=== PATIENT | male | born 1970 | race Caucasian/White ===

== ENCOUNTER 2022-11-12 01:12 | Emergency (ER) | payer OTHER, SELFPAY ==
[2022-11-12 01:16] VITALS: BP 152/98; PULSE 82; RESP 18; TEMP 36.6; O2SAT 99; BMI 34.4
[2022-11-12] MEDS: LIDOCAINE 2% JELLY 10 ML UR (01:50)
--- NOTE | 2022-11-12 01:52 | ED_ITS ---
HPI - Male Genitourinary General Chief complaint: Urogenital-Male Stated complaint: URINARY RETENTION Time Seen by Provider: 11/12/22 01:26 Source: patient Mode of arrival: walk-in Limitations: no limitations History of Present Illness HPI Narrative: This 52-year-old male who is a patient of Dr. Haley, urology, presents for evaluation of urinary retention. The patient states he was at work this morning and use the bathroom earlier without any difficulty. He then went to use the bathroom and urinated loc blood. After urinating loc blood he has not been able to pass any urine. He states that Dr. Haley is monitoring him for a spot on his prostate. It is believed to be cancer but it was so small that they are monitoring. He does not have any abdominal pain besides fullness in his bladder. He has not experiencing any flank pain. He has no generalized back pain, hip pain or other skeletal pain. He denies any recent rough sex or injury to his penis or scrotum. He did play golf earlier in the day but is not experiencing any urinary symptoms, pain or injury. He denies any nausea or vomiting. He has never had a Dior catheter. Related Data Home Medications Medication Instructions Recorded Confirmed tamsulosin 0.4 mg capsule mg PO 11/12/22 Allergies Allergy/AdvReac Type Severity Reaction Status Date / Time No Known Drug Allergies Allergy Verified 11/12/22 01:20 Review of Systems ROS Status of ROS 10 or more systems reviewed and unremarkable except as noted in history and below PFSH PFS Social History Smoking status: Never smoker Exam Narrative Exam Narrative: Nurses note and vital signs reviewed and patient is not hypoxic. Blood pressure was noted to be elevated at 152/98 General: The patient appears well and in no apparent distress. Patient is resting comfortably on cart. Skin: Warm, dry, no pallor noted. There is no rash noted. Head: Normocephalic, atraumatic Eye: Normal conjunctiva, no drainage, EOMI. PERRL Ears, Nose, Mouth, and Throat: oral mucosa is moist. Cardiovascular: Regular Rate and Rhythm Respiratory: Patient is in no distress, no accessory muscle use, lungs are clear to auscultation, no wheezing, rales or rhonchi Back: non-tender, no CVA tenderness bilaterally to percussion. GI: Normal bowel sounds, no tenderness to palpation, no masses appreciated. Fullness over urinary bladder, Bladder scan showed 570cc of retained urine in the bladder Musculoskeletal: The patient has no evidence of calf tenderness, no pitting edema, symmetrical pulses noted bilaterally Neurological: A&O x4, normal speech Psychiatric: Cooperative Constitutional Vital Signs, click to edit/add: Last Vital Signs Temp 97.8 F 11/12/22 01:16 Pulse 82 11/12/22 01:16 Resp 18 11/12/22 01:16 BP 152/98 H 11/12/22 01:16 Pulse Ox 99 11/12/22 01:16 O2 Del Method Room Air 11/12/22 01:16 Course Vital Signs Vital signs: Vital Signs Temperature 97.8 F 11/12/22 01:16 Pulse Rate 82 11/12/22 01:16 Respiratory Rate 18 11/12/22 01:16 Blood Pressure 152/98 H 11/12/22 01:16 Pulse Oximetry 99 11/12/22 01:16 Oxygen Delivery Method Room Air 11/12/22 01:16 Temperature 97.8 F 11/12/22 01:16 Pulse Rate 82 11/12/22 01:16 Respiratory Rate 18 11/12/22 01:16 Blood Pressure 152/98 H 11/12/22 01:16 Pulse Oximetry 99 11/12/22 01:16 Oxygen Delivery Method Room Air 11/12/22 01:16 MDM - Male Genitourinary MDM Narrative Medical decision making narrative: this 52-year-old male presents for evaluation of urinary retention. He last urinated loc blood and then was unable to pass any urine. Bladder scan shows garcía a 500 mL in his bladder. A Dior catheter was placed and loc bloody urine was removed from the bladder. He was given 3 L of be until his urine became clear. Routine labs are reviewed and are normal with the exception of urine that is positive for nitrites, blood and white blood cells. He was given 1 g of Rocephin. He will be discharged home with prescription for Keflex and recommendation for close follow-up with Dr. Haley, his urologist. He has been diagnosed in the past with prostate cancer that is being watched at this time. I encouraged him to return to emergency department if her and she stopped flowing through his catheter, if he has a fever, severe abdominal pain back pain or any concerns. Lab Data Labs: Lab Results 11/12/22 11/12/22 Range/Units 01:55 02:00 WBC 5.0 (4.0-11.0) 10^3/uL RBC 4.75 (4.70-6.10) 10^6/uL Hgb 14.7 (14.0-18.0) g/dL Hct 42.2 (42.0-54.0) % MCV 88.8 (80.0-94.0) fL MCH 30.9 (25.9-34.0) pg MCHC 34.8 (29.9-35.2) g/dL RDW 11.8 (11.0-15.0) % Plt Count 294 (150-450) 10^3/uL MPV 9.4 L (9.5-13.5) fL Neut % (Auto) 61.1 (43.0-75.0) % Lymph % (Auto) 30.9 (20.5-60.0) % [place] % (Auto) 6.8 (1.7-12.0) % Eos % (Auto) 0.8 L (0.9-7.0) % Baso % (Auto) 0.2 (0.2-2.0) % Neut # (Auto) 3.1 (1.4-6.5) 10^3/uL Lymph # (Auto) 1.5 (1.2-3.8) 10^3/uL [place] # (Auto) 0.3 (0.3-0.8) 10^3/uL Eos # (Auto) 0.0 (0.0-0.7) 10^3/uL Baso # (Auto) 0.0 (0.0-0.1) 10^3/uL Abs Immat Gran (auto) 0.01 (0.00-0.03) 10^3/uL Imm/Tot Granulo (auto) 0.2 (0.0-0.5) % Sodium 140 (136-145) mmol/L Potassium 3.7 (3.5-5.1) mmol/L Chloride 105 (98-107) mmol/L Carbon Dioxide 27.1 (21.0-32.0) mmol/L Anion Gap 11.6 BUN 15.0 (7.0-18.0) mg/dL Creatinine 1.10 (0.70-1.30) mg/dL Est GFR ( Amer) >60 (>=60) Est GFR (Non-Af Amer) >60 (>=60) BUN/Creatinine Ratio 13.6 Glucose 98 (74-106) mg/dL Calcium 8.8 (8.5-10.1) mg/dL Total Bilirubin 0.6 (0.2-1.0) mg/dL AST 18 (15-37) U/L ALT 24 (16-63) U/L Alkaline Phosphatase 56 (46-116) U/L Total Protein 7.5 (6.4-8.2) g/dL Albumin 4.1 (3.4-5.0) g/dL Globulin 3.4 g/dL Albumin/Globulin Ratio 1.2 Urine Color Dk. orange (YELLOW) Urine Clarity Sl cloudy (CLEAR) Urine pH 7.0 (5.0-9.0) Ur Specific [place] 1.015 (1.005-1.025) Urine Protein >=300 A (NEG/TRACE) mg/dL Urine Glucose (UA) 100 A (NEGATIVE) mg/dL Urine Ketones 15 A (NEGATIVE) mg/dL Urine Occult Blood Large A (NEGATIVE) Urine Nitrite Positive A (NEGATIVE) Urine Bilirubin Moderate A (NEGATIVE) Urine Urobilinogen 4.0 A (0.2-1.0) EU/dL Ur Leukocyte Esterase Moderate A (NEGATIVE) Urine RBC >100 A (0-2) #/HPF Urine WBC 20-50 A (NONE SEEN) #/HPF Ur Squamous Epith Cells Few A (NONE/RARE) #/LPF Urine Crystals None seen (None Seen) #/HPF Urine Bacteria Small A (NONE SEEN) #/HPF Urine Casts None seen (NONE SEEN) #/LPF Urine Mucus None seen (NONE SEEN) Ur Culture Indicated? Yes Discharge Plan Discharge Chief Complaint: Urogenital-Male Clinical Impression: Urinary tract infection, Gross hematuria, Acute urinary retention Patient Disposition: Home, Self-Care Time of Disposition Decision: 02:46 Condition: Good Prescriptions / Home Meds: No Action tamsulosin 0.4 mg capsule PO Stand Alone Forms: Portal Instructions Referrals: Catarino French DO [Primary Care Provider] - 1 week
[2022-11-12 02:09] LABS: Bilirubin Urine MODERATE (NEGATIVE); Blood Urine LARGE (NEGATIVE); Clarity Urine SL CLOUDY (CLEAR); Color Urine DK. ORANGE (YELLOW); Glucose Urine UA 100 mg/dL (NEGATIVE); Ketones Urine 15 mg/dL (NEGATIVE); Leukocyte Esterase Urine MODERATE (NEGATIVE); Nitrite Urine POSITIVE (NEGATIVE); Protein Urine >=300 mg/dL (NEG/TRACE); Specific Gravity Urine 1.015 (1.005-1.025)
[2022-11-12] MEDS: SODIUM CHLORIDE IRRIG SOLUTION 3,000 ML 3000 ML IRR (02:11)
[2022-11-12 02:16] LABS: Bacteria Urine SMALL #/HPF (NONE SEEN); Mucus Urine NONE SEEN (NONE SEEN); RBC Urine >100 #/HPF (0-2); Squamous Epithelial Cell Urine FEW #/LPF (NONE/RARE); WBC Urine 20-50 #/HPF (NONE SEEN)
[2022-11-12 02:17] LABS: Cast Seen? NONE SEEN #/LPF (NONE SEEN); Crystals Seen? None Seen #/HPF (None Seen); Urine Culture Indicated YES
[2022-11-12 02:20] LABS: Basophils Percent Auto 0.2 % (0.2-2.0); Eosinophils Percent Auto 0.8 % (0.9-7.0); Hematocrit 42.2 % (42.0-54.0); Hemoglobin 14.7 g/dL (14.0-18.0); Immature Granulocytes Abs Auto 0.01 10^3/uL (0.00-0.03); Immature Granulocytes Pct Auto 0.2 % (0.0-0.5); Lymphocytes Absolute Auto 1.5 10^3/uL (1.2-3.8); Lymphocytes Percent Auto 30.9 % (20.5-60.0); Mean Corpuscular HGB Conc 34.8 g/dL (29.9-35.2); Mean Corpuscular Hemoglobin 30.9 pg (25.9-34.0); Mean Corpuscular Volume 88.8 fL (80.0-94.0); Mean Platelet Volume 9.4 fL (9.5-13.5); Monocytes Absolute Auto 0.3 10^3/uL (0.3-0.8); Monocytes Percent Auto 6.8 % (1.7-12.0); Neutrophils Absolute Auto 3.1 10^3/uL (1.4-6.5); Neutrophils Percent Auto 61.1 % (43.0-75.0); Platelet Count 294 10^3/uL (150-450); Red Blood Count 4.75 10^6/uL (4.70-6.10); Red Cell Distribution Width 11.8 % (11.0-15.0)
[2022-11-12 02:22] LABS: Alanine Aminotransferase 24 U/L (16-63); Albumin Globulin Ratio 1.2; Albumin Level 4.1 g/dL (3.4-5.0); Alkaline Phosphatase 56 U/L (46-116); Anion Gap 11.6; Aspartate Amino Transferase 18 U/L (15-37); BUN Creatinine Ratio 13.6; Bilirubin Total 0.6 mg/dL (0.2-1.0); Calcium 8.8 mg/dL (8.5-10.1); Carbon Dioxide 27.1 mmol/L (21.0-32.0); Chloride 105 mmol/L (98-107); Estimated GFR (African America >60 (>=60); Estimated GFR (Non-African Ame >60 (>=60); Globulin 3.4 g/dL; Glucose 98 mg/dL (74-106); Potassium 3.7 mmol/L (3.5-5.1); Sodium 140 mmol/L (136-145); Total Protein 7.5 g/dL (6.4-8.2)
--- NOTE | 2022-11-12 06:54 | ED_ITS ---
HPI - Male Genitourinary General Chief complaint: Urogenital-Male Stated complaint: URINARY RETENTION Time Seen by Provider: 11/12/22 01:26 Source: patient Mode of arrival: walk-in Limitations: no limitations History of Present Illness HPI Narrative: This is an addendum to the addendum. This 52-year-old male was receiving CBI after presenting for urinary retention and gross hematuria. The CBI had been clearing up and the plan was for discharge home with digital hand and oral antibiotics when he had bladder spasm and started bleeding around the Dior catheter. The Dior catheter was removed and replaced and the patient had gross hematuria again in the Dior catheter. He received 3 more liters of CBI. The urine became clear again and then started becoming bloody again. The case was discussed with Dr. Jovan Can, urology with the urology group that the patient is currently with. He suggested the patient be transferred to [facility] for aggressive clot removal. The patient was informed of this and was made nothing by mouth. The patient's feels comfortable taking him to [facility] once a bed is available. Related Data Home Medications Medication Instructions Recorded Confirmed tamsulosin 0.4 mg capsule mg PO 11/12/22 Allergies Allergy/AdvReac Type Severity Reaction Status Date / Time No Known Drug Allergies Allergy Verified 11/12/22 01:20 [facility] Social History Smoking status: Never smoker Exam Constitutional Vital Signs, click to edit/add: Last Vital Signs Temp 97.8 F 11/12/22 01:16 Pulse 82 11/12/22 01:16 Resp 18 11/12/22 01:16 BP 152/98 H 11/12/22 01:16 Pulse Ox 99 11/12/22 01:16 O2 Del Method Room Air 11/12/22 01:16 Course Vital Signs Vital signs: Vital Signs Temperature 97.8 F 11/12/22 01:16 Pulse Rate 82 11/12/22 01:16 Respiratory Rate 18 11/12/22 01:16 Blood Pressure 152/98 H 11/12/22 01:16 Pulse Oximetry 99 11/12/22 01:16 Oxygen Delivery Method Room Air 11/12/22 01:16 Temperature 97.8 F 11/12/22 01:16 Pulse Rate 82 11/12/22 01:16 Respiratory Rate 18 11/12/22 01:16 Blood Pressure 152/98 H 11/12/22 01:16 Pulse Oximetry 99 11/12/22 01:16 Oxygen Delivery Method Room Air 11/12/22 01:16 MDM - Male Genitourinary Lab Data Labs: Lab Results 11/12/22 11/12/22 Range/Units 01:55 02:00 WBC 5.0 (4.0-11.0) 10^3/uL RBC 4.75 (4.70-6.10) 10^6/uL Hgb 14.7 (14.0-18.0) g/dL Hct 42.2 (42.0-54.0) % MCV 88.8 (80.0-94.0) fL MCH 30.9 (25.9-34.0) pg MCHC 34.8 (29.9-35.2) g/dL RDW 11.8 (11.0-15.0) % Plt Count 294 (150-450) 10^3/uL MPV 9.4 L (9.5-13.5) fL Neut % (Auto) 61.1 (43.0-75.0) % Lymph % (Auto) 30.9 (20.5-60.0) % [place] % (Auto) 6.8 (1.7-12.0) % Eos % (Auto) 0.8 L (0.9-7.0) % Baso % (Auto) 0.2 (0.2-2.0) % Neut # (Auto) 3.1 (1.4-6.5) 10^3/uL Lymph # (Auto) 1.5 (1.2-3.8) 10^3/uL [place] # (Auto) 0.3 (0.3-0.8) 10^3/uL Eos # (Auto) 0.0 (0.0-0.7) 10^3/uL Baso # (Auto) 0.0 (0.0-0.1) 10^3/uL Abs Immat Gran (auto) 0.01 (0.00-0.03) 10^3/uL Imm/Tot Granulo (auto) 0.2 (0.0-0.5) % Sodium 140 (136-145) mmol/L Potassium 3.7 (3.5-5.1) mmol/L Chloride 105 (98-107) mmol/L Carbon Dioxide 27.1 (21.0-32.0) mmol/L Anion Gap 11.6 BUN 15.0 (7.0-18.0) mg/dL Creatinine 1.10 (0.70-1.30) mg/dL Est GFR ( Amer) >60 (>=60) Est GFR (Non-Af Amer) >60 (>=60) BUN/Creatinine Ratio 13.6 Glucose 98 (74-106) mg/dL Calcium 8.8 (8.5-10.1) mg/dL Total Bilirubin 0.6 (0.2-1.0) mg/dL AST 18 (15-37) U/L ALT 24 (16-63) U/L Alkaline Phosphatase 56 (46-116) U/L Total Protein 7.5 (6.4-8.2) g/dL Albumin 4.1 (3.4-5.0) g/dL Globulin 3.4 g/dL Albumin/Globulin Ratio 1.2 Urine Color Dk. orange (YELLOW) Urine Clarity Sl cloudy (CLEAR) Urine pH 7.0 (5.0-9.0) Ur Specific [place] 1.015 (1.005-1.025) Urine Protein >=300 A (NEG/TRACE) mg/dL Urine Glucose (UA) 100 A (NEGATIVE) mg/dL Urine Ketones 15 A (NEGATIVE) mg/dL Urine Occult Blood Large A (NEGATIVE) Urine Nitrite Positive A (NEGATIVE) Urine Bilirubin Moderate A (NEGATIVE) Urine Urobilinogen 4.0 A (0.2-1.0) EU/dL Ur Leukocyte Esterase Moderate A (NEGATIVE) Urine RBC >100 A (0-2) #/HPF Urine WBC 20-50 A (NONE SEEN) #/HPF Ur Squamous Epith Cells Few A (NONE/RARE) #/LPF Urine Crystals None seen (None Seen) #/HPF Urine Bacteria Small A (NONE SEEN) #/HPF Urine Casts None seen (NONE SEEN) #/LPF Urine Mucus None seen (NONE SEEN) Ur Culture Indicated? Yes Discharge Plan Discharge Chief Complaint: Urogenital-Male Clinical Impression: Urinary tract infection, Gross hematuria, Acute urinary retention Patient Disposition: Home, Self-Care Time of Disposition Decision: 02:46 Condition: Good Prescriptions / Home Meds: No Action tamsulosin 0.4 mg capsule PO Stand Alone Forms: Portal Instructions Referrals: Catarino French DO [Primary Care Provider] - 1 week
[2022-11-12 07:12] VITALS: BP 156/96; O2SAT 99
[2022-11-12 07:20] VITALS: O2SAT 98
[2022-11-12 07:30] VITALS: BP 157/84; O2SAT 95
[2022-11-12 07:40] VITALS: O2SAT 100
[2022-11-12 07:50] VITALS: O2SAT 96
[2022-11-12] MEDS: ACETAMINOPHEN 500 MG TABLET PO (07:56)
[2022-11-12] MEDS: DIAZEPAM 2 MG TABLET PO (07:56)
[2022-11-12] MEDS: IBUPROFEN 400 MG TABLET 800 MG PO (07:57)
== END 2022-11-12 08:21 | disposition short-term general hospital (02) ==
PROVIDERS: Emergency Provider Emergency Medicine; PCP Internal Medicine
DX: N39.0 Urinary tract infection, site not specified (principal); R33.9 Retention of urine, unspecified; R31.0 Gross hematuria; Z85.46 Personal history of malignant neoplasm of prostate
CPT/HCPCS: 36415; 51700; 80053; 81001; 85025; 87086; 99285

== ENCOUNTER 2023-01-04 09:41 | Outpatient (OUT) | payer OTHER, SELFPAY ==
--- NOTE | 2023-01-04 | XR_ITS ---
The [address] [address] Patient Name: KAMRON YANG MRN: [id number] date: 1970 Sex: M Assigned Patient Location: [facility] Current Patient Location: [facility] Accession/Order Number: [id number] Exam Date: 01/04/2023 09:38 Report Date: 01/04/2023 10:30 At the request of: BJ CORDERO Procedure: XR foot RT min 3V STUDY: XR foot RT min 3V, [id number] HISTORY: RIGHT FOOT PAIN COMPARISON: None FINDINGS: No acute fracture, dislocation, or suspicious osseous lesion. Small plantar calcaneal spur. Moderate Achilles insertional enthesopathy. Scattered vascular calcifications are present. An os peroneum is present. XR/XR foot RT min 3V IMPRESSION: No acute osseous abnormality. Electronically authenticated by: GLENN SANDERS Date: 01/04/2023 10:30
== END 2023-01-04 09:42 | disposition home or self-care (01) ==
LOC: RAD 01-05 09:41
PROVIDERS: PCP Internal Medicine; Visit Provider Physician Assistant
DX: S99.921A Unspecified injury of right foot, initial encounter (principal)
CPT/HCPCS: 73630

== ENCOUNTER 2023-01-06 14:49 | Outpatient (RCR) | payer OTHER, SELFPAY | END 2023-02-22 17:20 | disposition home or self-care (01) | LOC: PT 14:49 | PROVIDERS: PCP Internal Medicine; Visit Provider Physician Assistant | DX: S93.691D Other sprain of right foot, subsequent encounter (principal) | CPT/HCPCS: 97010; 97014; 97035; 97110; 97112; 97140; 97161 ==

== ENCOUNTER 2023-01-27 07:08 | Outpatient (OUT) | payer OTHER, SELFPAY ==
[2023-01-27 07:46] LABS: Basophils Percent Auto 0.5 % (0.2-2.0); Eosinophils Absolute Auto 0.1 10^3/uL (0.0-0.7); Eosinophils Percent Auto 2.2 % (0.9-7.0); Hematocrit 45.4 % (42.0-54.0); Hemoglobin 15.5 g/dL (14.0-18.0); Immature Granulocytes Abs Auto 0.01 10^3/uL (0.00-0.03); Immature Granulocytes Pct Auto 0.2 % (0.0-0.5); Lymphocytes Absolute Auto 2.7 10^3/uL (1.2-3.8); Mean Corpuscular HGB Conc 34.1 g/dL (29.9-35.2); Mean Corpuscular Volume 90.8 fL (80.0-94.0); Mean Platelet Volume 9.3 fL (9.5-13.5); Monocytes Absolute Auto 0.5 10^3/uL (0.3-0.8); Monocytes Percent Auto 7.9 % (1.7-12.0); Neutrophils Absolute Auto 3.1 10^3/uL (1.4-6.5); Neutrophils Percent Auto 48.2 % (43.0-75.0); Platelet Count 283 10^3/uL (150-450); Red Cell Distribution Width 11.5 % (11.0-15.0); White Blood Count 6.5 10^3/uL (4.0-11.0)
[2023-01-27 08:45] LABS: Alanine Aminotransferase 41 U/L (16-63); Albumin Globulin Ratio 1.1; Albumin Level 3.8 g/dL (3.4-5.0); Alkaline Phosphatase 66 U/L (46-116); Anion Gap 12.3; Aspartate Amino Transferase 19 U/L (15-37); BUN Creatinine Ratio 16.7; Calcium 8.6 mg/dL (8.5-10.1); Carbon Dioxide 27.8 mmol/L (21.0-32.0); Chloride 102 mmol/L (98-107); Chol HDL Ratio 4.7; Cholesterol 259 mg/dL (<=200); Estimated GFR (African America >60 (>=60); Estimated GFR (Non-African Ame >60 (>=60); Globulin 3.5 g/dL; Glucose 92 mg/dL (74-106); HDL Cholesterol 55 mg/dL (40-60); Potassium 4.1 mmol/L (3.5-5.1); Sodium 138 mmol/L (136-145); Total Protein 7.3 g/dL (6.4-8.2); Triglycerides 240 mg/dL (<=150)
== END 2023-01-27 07:09 | disposition home or self-care (01) ==
LOC: LAB 07:09
PROVIDERS: PCP Internal Medicine; Visit Provider Internal Medicine
DX: Z00.00 Encounter for general adult medical examination without abnormal findings (principal)
CPT/HCPCS: 36415; 80053; 80061; 85025

== ENCOUNTER 2023-10-12 13:52 | Outpatient (OUT) | payer OTHER, SELFPAY ==
--- OUTSIDE RECORDS SUMMARY | 2023-10-12 14:17 | XMS_ITS ---
Patient Summarization (C-CDA 2.1 CCD) Created on: October 12, 2023 THOMPSONKAMRON : 1970 Sex: Male Author Organization Sample organization Care Team Providers Care Customer Supply Coordinator Name Role Phone Unavailable Primary Care Provider Unavailabl e MISC, DOCTOR Admitting Unavailable ROSEANNA, DR SALINAS Primary Care Unavailable MISC, DR BARRAGAN Consulting Unavailable MISC, DR BARRAGAN Attending Unavailable ROSEANNA, DR SALINAS Consulting Unavailable ROSEANNA, DR SALINAS Attending Unavailable ROSEANNA, DR SALINAS Admitting Unavailable ROSEANNA, DR SALINAS Primary Care Unavailable Catarino Condon Unavailable Catarino Condon DO Primary Care Provider CATARINO CONDON Primary Care Unavailable CHASTITY NAIR Admitting Unavailable MUSTAPHA AUGUSTINE I Attending Unavailable MARKER, NIKI Referring Unavailable CATARINO CONDON Primary Care Unavailable TYSON CAMARENA Consulting Unavailable MUSTAPHA AUGUSTINE I Consulting Unavailable Gabe Haley Attending Unavailable Catarino Condon Primary Care Unavailable Gabe Haley Admitting Unavailable Gabe Haley Attending Unavailable Catarino Condon Primary Care Unavailable Gabe Haley Admitting Unavailable Allergies Allergy Classification Reported Allergen(s) Allergy Type Date of Onset Reaction(s) Facility (1 source) No Known Medication Allergies; Translations: [No Known Medication Allergies] Propensity to adverse reactions to drug (disorder) [facility] Repository Encounters Encounter Date Encounter Type Care Provider Facility Start: 05-20-2023 End: 05-20-2023 ambulatory Catarino Condon Other [employer] Other Start: 05-20-2023 Telephone encounter [facility] Start: 04-29-2023 End: 04-29-2023 ambulatory Catarino Roseanna Other [employer] Other Start: 04-29-2023 Telephone encounter Catarino Condon [facility] Start: 04-27-2023 End: 04-27-2023 ambulatory Catarino Roseanna Other [employer] Other Start: 04-27-2023 Office outpatient vi sit 15 minutes Catarino Condon [facility] Start: 02-22-2023 Telephone encounter Catarino Condon [facility] Start: 02-22-2023 End: 02-22-2023 ambulatory Gabe Haley [facility] [employer] Other Start: 01-26-2023 Encounter for genera l adult medical examination without abnormal findings Catarino Condon [facility] Start: 01-26-2023 Periodic preventive med est patient 40-64yrs Catarino Condon [facility] Start: 01-26-2023 End: 01-27-2023 ambulatory Gabe Haley [facility] [employer] Other Start: 11-12-2022 End: 11-12-2022 Evaluation and management of inpatient CHASTITY TAMAYOP [facility] Start: 11-12-2022 End: 11-12-2022 Emergency department patient visit CATARINO CONDON [facility] Start: 11-12-2022 End: 11-12-2022 Evaluation and management of inpatient Chastity Nair DO Work Phone: [facility] ED Comment on above: Urinary retention (P rimary Dx) Start: 10-05-2022 End: 10-05-2022 ambulatory Catarino Condon Other [employer] Other Start: 10-05-2022 Telephone encounter Catarino VALLADARES [facility] Start: 07-28-2022 End: 07-28-2022 ambulatory Catarino Condon Other [employer] Other Start: 07-28-2022 Office outpatient vi sit 15 minutes Catarino Condon [facility] Start: 06-17-2022 End: 06-18-[address] DOCTOR FRANCO Facility:[facility] Start: 02-03-2022 Encounter for genera l adult medical examination without abnormal findings DR CATARINO CONDON [facility] Start: 01-23-2022 End: 01-24-[address] CATARINO CONDON Facility:[facility] Start: 01-23-2022 End: 01-24-2022 Encounter for general adult medical examination without abnormal findings DR CATARINO CONDON Facility:[facility] Start: 04-07-2020 End: 04-07-2020 Patient encounter procedure External Provider [facility] Start: 04-07-2020 Results Only External Provider Exter nal-NonCCF Medications Current Medications Medication Drug Class(es) Dates Sig (Normalized) Sig (Original) 0.5 ML tirzepatide 20 MG/ML Auto-Injector [Mounjaro] (2 sources) Start: 07-28-2022 inject 10 mg by subcutaneous injection every week Mounjaro 10 MG/0.5ML 10 MG Subcutaneous weekly for 28 days Jul, Active inject 10 mg by subcutaneous inj ection every week Acetaminophen (1 source) Start: 11-12-2022 acetaminophen (TYLENOL) tablet 650 mg hyoscyamine sulfate 0.125 mg sublingual tablet (1 source) Start: 11-12-2022 End: 11-15-2022 Hyoscyamine Sulfate SL (LEVSIN/SL) 0.[address] 0.125 mg under the tongue every 6 hours as needed (bladder spasms) STOP TAKING DAY BEFORE CATHETER REMOVAL 12 each 0 11/12/2022 11/15/2022 Active mounjaro 2.5 mg/0.5ml solution pen-injector (3 sources) Start: 04-27-2023 inject 2.5 mg by subcutaneous injection every week Mounjaro 2.5 MG/0.5ML 2.5 MG Subcutaneous weekly for 28 days Apr, Active olmesartan medoxomil 5 mg oral tablet (5 sources) Angiotensin 2 Receptor Brock Start: 01-26-2023 Olmesartan Medoxomil 5 MG as directed Orally Once a day for 30 days Jan, Active ondansetron (ZOFRAN-ODT) disintegrating tablet 4 mg (1 source) Start: 11-12-2022 ondansetron (ZOFRAN-ODT) disintegrating tablet 4 mg Potassium Chloride (1 source) Start: 11-12-2022 potassium chloride (KLOR-CON M) extended release tablet 40 mEq 1000 ml sodium chloride 9 mg/ml injection (4 sources) Start: 11-12-2022 IntraVENous, at 75 mL/hr, CONTINUOUS, Starting on Tue11/12/22 at 1000 Start: 11-12-2022 IntraVENous, a t 5-250 mL/hr, PRN, if patient receiving piggyback infusions and maintenance fluids are not ordered OR KVO fluids to protect IV site / prevent frequent line interruptions/ long duration, Starting on Tue11/12/22 at 0954 For piggyback infusion, administer at same rate as piggyback for a total of 25 mL. Enter 25 mL into dose field and piggyback rate into rate field of order. If piggyback is infusing at a rate less than 100 mL/hr, enter 25 mL into dose field and 100 mL/hr into rate field of order. For KVO fluids, enter rate of 20 mL/hr or less into rate field of order. Start: 11-12-2022 take 1 dose intraven ously twice daily 5-40 mL, IntraVENous, EVERY 12 HOURS SCHEDULED (2 times per day), First dose on Tue11/12/22 at 1000, Until Discontinued For Line Patency: Peripheral IV = 5 mL; Midline or Central Line = 10 mL/lumen. If following IV push medication, administer flush at same rate as the IV push. Flush volume is determined by type of infusion therapy being given. For non-viscous solutions use: Peripheral IV = 5 mL Midline or Central Line = 10 mL/lumen For viscous solutions (i.e. blood components, parenteral nutrition, contrast media, or after obtaining blood sample) use: Peripheral IV = 10 mL Midline or Central Line = 20 mL/lumen Start: 11-12-2022 take 5-40 mL intrave nously once as needed 5-40 mL, IntraVENous, PRN, Starting on Tue11/12/22 at 0954, Until Discontinued, Line Care, After every IV line use For Line Patency: Peripheral IV = 5 mL; Midline or Central Line = 10 mL/lumen. If following IV push medication, administer flush at same rate as the IV push. Flush volume is determined by type of infusion therapy being given. For non-viscous solutions use: Peripheral IV = 5 mL Midline or Central Line = 10 mL/lumen For viscous solutions (i.e. blood components, parenteral nutrition, contrast media, or after obtaining blood sample) use: Peripheral IV = 10 mL Midline or Central Line = 20 mL/lumen sulfamethoxazole 800 mg / trimethoprim 160 mg oral tablet (1 source) Dihydrofolate Reductase Inhibitor Antibacterial, Sulfonamide Antimicrobial Start: 11-12-2022 End: 11-19-2022 take 1 tablet by mouth twice daily sulfamethoxazole-trimethoprim (BACTRIM DS;SEPTRA DS) 800-160 MG per tablet Take 1 tablet by mouth 2 times daily for 7 days 14 tablet 0 11/12/2022 11/19/2022 Active tamsulosin hydrochloride 0.4 mg oral capsule (7 sources) alpha-Adrenergic Brock Start: 11-12-2022 take 1 capsule by mouth once daily tamsulosin (FLOMAX) 0.4 MG capsule Take 1 capsule by mouth daily 30 capsule 0 11/12/2022 Active take 1 capsule by mo uth every twenty-four hours Tamsulosin HCl 0.4 MG 1 capsule Orally Once a day Active TAMSULOSIN HCL P O Take by mouth 0 Active Completed/Discontinued Medications Medication Drug Class(es) Dates Sig (Normalized) Sig (Original) 0.5 ML tirzepatide 25 MG/ML Auto-Injector [Mounjaro] (3 sources) inject 12.5 mg by subcutaneous injection every week Mounjaro 12.5 MG/0.5ML 12.5 MG Subcutaneous weekly for 28 days Not-Taking inject 12.5 mg by meza bcutaneous injection every week Mounjaro 12.5 MG/0.5ML 12.5 MG Subcutaneous weekly for 28 days Active bisacodyl 10 mg rectal suppository (1 source) Stimulant Laxative Start: 11-12-2022 take 10 mg rectal route once daily as needed 10 mg, Rectal, DAILY PRN, Starting on Tue11/12/22 at 0954, Until Discontinued, Constipation Second line therapy for constipation, After 24 hours, if no result from first line PRN therapy, give second line therapy in combination with first line therapy. 0.4 ml enoxaparin sodium 100 mg/ml prefilled syringe (1 source) Low Molecular Weight Heparin Start: 11-12-2022 inject 40 mg by subcutaneous injection once daily 40 mg, SubCUTAneous, DAILY, First dose on Tue11/12/22 at 1000, Until Discontinued Indication of Use: Prophylaxis-DVT/PE mounjaro 12.5 mg/0.5ml solution pen-injector (3 sources) inject 12.5 mg by subcutaneous injection every week as needed Mounjaro 12.5 MG/0.5ML 12.5 MG Subcutaneous weekly for 28 days Not-Taking/PRN polyethylene glycol 3350 28722 mg powder for oral solution (1 source) Osmotic Laxative Start: 11-12-2022 17 g, Oral, DAILY PRN, Starting on Tue11/12/22 at 0954, Until Discontinued, Constipation First line therapy for constipation Payers Date Payer Category Payer Unknown [id number] 2020 Unknown [id number] 2017 Unknown MMO MMO [employer] [id number] 2017-Present PPO [id number] 1970 Unknown [id number] 1970 Unknown [id number] 1970 Unknown [id number] 1970 Unknown [id number] 1970 Unknown [id number] 1970 Unknown [id number] 1959 Unknown [id number] 1959 Unknown [id number] Plan of Treatment Date Care Activity Detail Author Start: 11-09-2022 Influenza vaccination Flu vaccine (# 1) [facility] Start: 12-11-2019 Influenza vaccination INFLUENZA (#1) [facility] Start: 2015 DIABETES SCREEN DIABETES SCREEN [facility] Start: 2005 LIPID SCREEN LIPID SCREEN [facility] Start: 1989 DTaP/Tdap/Td vaccine (1 - Tdap) DTaP/Tdap/Td vaccine (1 - Tdap) [facility] Start: 1989 Urine microalbumin profile DTAP,TDAP,TD (1 - Tdap) [facility] Start: 1988 HEPATITIS C SCREENING HEPATITIS C SC REENING [facility] Start: 1988 HIV SCREENING HIV SCREENING [facility] Start: 1970 COVID-19 Vaccine (#1) COVID-19 Vacci ne (#1) [facility] Oxygen therapy [[facility] Initiate Oxygen Therapy Protocol Respiratory Care Routine As Needed until discontinued starting 11/12/2022 [facility] Comment on above: As Needed until disc ontinued starting 11/12/2022 [facility] Problems Problem Classification Problem Date Documented Da te Episodic/Chronic Cancer of prostate (13 sources) Malignant neoplasm of prostate; Translations: [Carcinoma of prostate] Onset: 05-12-2019 Chronic Essential hypertension (8 sources) Essential hypertension; Translations: [Essential (primary) hypertension] Chronic Genitourinary symptoms and ill-defined conditions (16 sources) Delay when starting to pass urine; Translations: [Hesitancy of micturition] Onset: 11-12-2022 Episodic Hyperplasia of prostate (9 sources) Nocturia due to benign prostatic hypertrophy; Translations: [Benign prostatic hyperplasia with lower urinary tract symptoms] Chronic Other connective tissue disease (7 sources) Ganglion cyst of right wrist; Translations: [Ganglion, right wrist] Episodic Other nutritional; endocrine; and metabolic disorders (12 sources) Body mass index 30+ - obesity; Translations: [Obesity, unspecified] Chronic Other nutritional; endocrine; and metabolic disorders (2 sources) Obesity, unspecified Chronic Other nutritional; endocrine; and metabolic disorders (5 sources) Obesity caused by energy imbalance; Translations: [Other obesity due to excess calories] Chronic Other nutritional; endocrine; and metabolic disorders (2 sources) Other obesity due to excess calories Chronic Other nutritional; endocrine; and metabolic disorders (2 sources) Body mass index (BMI) 34.0-34.9, adult Chronic Varicose veins of lower extremity (7 sources) Varicose veins of bilateral lower limbs; Translations: [Asymptomatic varicose veins of bilateral lower extremities] Episodic Procedures Date Procedure Procedure Detail Performing Clinician Start: 11-12-2022 Blood count complete auto&auto difrntl wbc Mustapha Augustine DO Work Phone: Start: 06-17-[address] DOCTOR FRANCO Comment on above: Performed By: #### P SAD #### [facility] [address] [place] [address] Dr. 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 Coding Summaryon 02-28-2023 Coding Summary HTMLBase 64 ShukglgdKGl0uLq+PGhlYW Q+PX3CPEClD50fbBJebY3g E6CRKUvOKjhxEMBWBTyKFm ZjykJxTT5uqCBpVRUi IC8+GK2pLTQjUuejvWEaw2 M4fKF6X57ywx6pRSiziCD7 BHTwNsHoaqyfd1kdxQv1LW cuNmluOyBt CJBpzY93LUS5gF13Md26kB IlsUDdp1syuRf2LxLcKIHe WAC6lLyrJVzyk3DzBGUwD3 2vmCLmn0F7 WFCjjNztjJHbNjXolXK8vB 2zLSkmhuzkf9qwtnunTqn9 hk42rSHwy9D3pYJ5G6Vdol T0FWYxhLMa TnqbwZVWdZ5cqgoyo9pclz gaClEcJQRaVKz0STl6RRSs xBkgTlUeRR27EFM1COCdea UpU3HpBTAd mRepVnS8h2J8Gl0NF6CTLz scS9HSNQGZXNbyjZR+PC90 kf61N7ApSummSbt1XMTbYR W7tDX0qQ6n CISrPZrck0M4mRI4L1Hfvs Sjul0ev9dwOUVzBXfxK80k bEJke3E4EXAgtDK1JOHxpL vbIjLvnP25 Oyc+OZWmgTjjj3EfTosnn1 vtt7fvyDf8VzawKWNopuNf eSenRIN0w6XxHx6uVGClpJ F9iOR4rG1w XsRoPqM9FSimU579ZjKjsP LdCbgkB22sM9OwwYJ+PHRy Gpz8MFKymNeoQD5vD1UxWF RpbmctbGVm tIzeSL1kIEUwjpksWUEbaR 0lVHUpI6v4FpYsJuA9QDmr O6YsLMVbfraoWw56vN3xXp EjVvC4HMni S2TziyN8PVQmhNSuLXmjZC X7E13gz9A7BJXxYXQxZBO3 iXW2cD4dvYygphspkHMniO sgdmVydGlj HUtlYTqpT165BLJfjBuvEl NvZGluZyBEYXRlOiAgMTEv MjAvMjAyMzwvdGQ+PHRkIH M1nWfeFVAj jWQaCEkcCg2yhHfyhSrtAI 1mYZHesprjJOVqdS3oHOXm iQLxjUviXP4kAOBrldvmr8 39UwCwHGD0 DLCvbOJiB0HmqU5iSvQoYZ FyWPHwQ8SzpRNqAScnT316 HGjzSbH1EQYeaoEjS9GzUM FsaWduOiB0 t8S3Ah3Kq4DzbdyoA6CgzU TrVxRjRxxaWWo2I5NoHhjm dHI+ZE43XZJsAT48MWd5SX J0bTrzTJgx XGFlG7ZfyB2lLxCbMTNuTH RkOyc+PHRhYmxlIHdpZHRo QGjoETBmHyTogPlvGM9iGt 9yZGVyLWNv pSkooGCeTsJju1rnLHUoJX omMX2kbKdyG4ZyjOZ0KGWo i0a1Lt54D31vJ3HxaTP+PG JphSR9aHM9 sD4pZrQvVoQ8IEksQ450Yt IlhJGiDgfcb9ora2wccCo3 MoD0BIXmwyTezYkcPUS3u9 ExZg14E61i IHdpZHRoPSIxNSUiIHZhbG wlmg0mbA8iEd6+PGNvbCB3 sKI0jE0oOkXtRhO4QIktB7 49InRvcCIv Ixltd7dor8gtbHl5AyQoPT UlhxWnlXxtLCW9r2PeVy20 Y8JwyKqir2WmLtc8xv89nO Ccn6Q2aMB7 Y9RfAVVlbykgrJYohXxbIE 8yCGRbdmjzNZNikR0aDGYt W6d0BeQlNqL2DDooH4Tvjk O0RUFxhZNo QDLqjGWGqH5xuhavh7mxzm gnTvYvQJEnARf9FMd7PPOv rPwzHmReXDI5IpF3YUU5aS RqqJ7cxNgi pegrjG9gBpz+KRN6kZXyiJ HXZL7qHkberYH+PHRkIHN0 ePqqHGjcUKEzxA4xGNFnZ6 g8XsEhTxN9 MTtcW1CsyaH6VJGsqVPuCB PffKNOfP4vdzdes3ivoerz AcTaXDJrXMl8LDk4JJQrcT duOiBsZWZ0 NgQ1AWI6fKDbtO6joDcdgp stfD2jXja+QmlydGggRGF0 WBt4P7LuMra1KNKleYlhNS 0ncGFkZGlu Np1fxOfynDchJS9fDIPzxv zsi055KuZcm8erNCSmlLHa KNspHKR4O41vm9F8BDEoYS LwHZH4wQV7 qG0jqTtsdubgwOUpfOlkea EilNraDVhnLGhkP296OUOw pRgbFhGiZZk6V8CdXqk6PT VqlTklRJ3p fEOwUWhoRp5qkSibtYfbCH 4gERQzbjswc042UjJln5ea UCGroUEwVQkqTLI6E63bp3 A9UDQnBCAk RLA8yBX7pQ2xyIxnhiihyJ VmdDsgdmVydGljYWwtYWxp M571PTRepFjeEdIgtGa2T4 PgUlu3OTIn mYrlYC4rlATtDMhxIv3bzU iadJmzQC7uGRFdolrpk246 AiMmv6xkDYBrqBMfSRqxCD W5O69yr0C9 MLXiSCBnNDG8nVN6rS5rpM lnbjogbGVmdDsgdmVydGlj IFalSJamG159RDFuoJmdEg BhdGllbnQg UFchVNs8Q7FyIedlmRP+PC 13FKFdWG94xMDdlHCip2li uLv6ZfHcYDLgYWQ8jHuhNF wzp5QlKVSk Q64opXKav6W0TTIkhQcwfF OfEeBolOE3eM7uJQkqouma a3qtbscgIlqrb6hyyf16wT 60S94yWTij ZHRoPSIzMCUiIHZhbGlnbj 3cyN1oIf6+CLXuiES7wJE4 gH1zWNFuGjL8DRiyY242Wd RvcCIvPjxj y0odj5kshBg0RrW6AKQirr LbcWgiEKO8y3NyNk86Q23b IHdpZHRoPSIyMCUiIHZhbG vnix2faB0p Ii8+JBQptNB4zTS4zT0tTr NsDoL1IUyzF120RwHbyZAb YggsE25zQ5BkcRP+PHRyPj d8IKIfrNib KV0niGNhTHfiRb5cPWJ7Ov OyCqClYJwrY4WaEWVyecwt zatojQT4UZMsPQJkeV61Ey 9udDogMTBw vENAjG6mbuizi4coolbvLr PjOCOsPNz1RNh6ZKAerCqr GzUxUEK2DcP6FBQ5mIJthV 1hbGlnbjog nN7fT9UqSSGnavrzVh41zQ 9kQrCzVfA5CGnaRcg+QU5E HbLRLxgxEXFJFwDTTS7BKg wvdGQ+PHRk OHE4sCihPQbgXOKjkT4fWU AlG4b1XaYqUgB5KLxgI9Uo WKOslmqhCq84yU1kDzGoOm U8DOxbF3Yg ipH7KBQyhZRhPZulMBJ4G6 4tm2N5MQFkUPHyPBX1tMG0 qS0vuZaxgbmixHWcwGpjhx VydGljYWwt HGtsD791BJLgoXjeUeAaIs H5HyF4AeL7A6GvDbq0RUQg oQwgRT7zvCGzWYilKp3bnF sarPzxRJ8y PHZvnvisBTGfzF7gMLVrvI UshKxgQQ4wOUVzsvybh037 FxSmGGS6HWVzpZHrY2MeoG 9yOiAjMDAw ZIEzK1WujJEqIMnnZ888PI eaHlX3XHInibDoY5DwNXCa pMleMeC9v0M6Lp41LxFJUW FyczwvdGQ+ MORbZKQ6uIggFGfpTMRsoK 0vSTBdJ0i4OnBuRhF7IPnr I9SmBEHeewrqSi43nC7gYw IjCgN0EYzc A0UagnL2ZTRnoCTnYGevSD F2T94ed4L8ZPNrFJHcNTL5 uTI3nP1itSvegrblqGOweA sgdmVydGlj CWgwOHivP968OTLsdQmpEp 6EBAD8R9PqNgq9WJVtkEth EQ7wuVWoXIgoWu0nuRctuQ ktHS1rDDFe dsyaUMPsbA6kQZSpnLAhzG bpBB9aGLWfgedqo495UoRo UCY2LBUarMPbI2HgvW7vHb AjMDAwMDAw Y6DjhXWjSGtbZ123TRmjKv I5QLGqfaEtB9XqNZXvzSak CfS9i2D8St0PHGpwZ3HuI8 VyeTwvdGQ+ GD91qg21Y7YsAbcaGto3WL UrMHW1mNT6uF8dKFEuJBxb m8J3oZE3L3AxleRjjh0nk3 xsYXBzZTog V83owJTei1S1EAJvkFV6ZA ZgnEpgSkOizN63Iqv+PGNv vKdzh0JaEqijo2lwt3ojzO t7AqJmMUYb zvBdxPtfINW8s4ZnBl71V6 9sIHdpZHRoPSIzMCUiIHZh nSihqh5adV7dZx2+PGNvbC T9yZD2oH7c JeMePaV8XGjqZ234CqSoeJ PzKaizw4xor8qkoTd8RwWu AAFuvpRybBrxPJS2w9VhDe 25Q8QpdVqz c5QjJpb2tz74mTNxf1C6kY B8X5VgPPHqualjxOKguRxd RS8qAFKdjrkeKYNowF9kBG JbB0q7BaVk ZiO8UOgpO0AzgoE6PIPxfL PfTDBgfSPWeK8nfreph7hu wqncPbNqAZWyGHl8YGt5IZ FsaWduOiBs KRT5WrZ3TRE1rFMmaR0tkF ycjncwwC8uBtw+DPa0o7gn gRPvUA6wkCK1DL41TE53lF Ksq3K0eDV5 R4ApBGMflbrgbfvdjWB1LD KmRTBekA90Ga9kcJjvBd2f PMBcDJI2WWFndZPwN4MquW 9yOiAjMDAw TZIeL1YiqIUgZDpyX389QR chVpK9UWUyhmQgP1CcOPBs hMcnDfK0z7X6Jg1APJ10SQ 89XX66bMLx x3W5bJU7Q8HnFSRntsoeuh sfvDD6AKIwXOEqfM98Cx2z aVazPn2pIKDqYSC2HXJtuW LmQ7RngA3n MxFyBDZvXDXqE9AfcSIqDD svE127FUutTdI0TGQpthIz F3CzDRTolRpsGqA7z6N5Iw 0WHi54EW41 CY12pBEfv9I9yXE3O8SvKW DmjjpzetryfUU4APUtDKNk eB57Kr6opLrvRp4jREXqFG R0WDEtgSRw L2EqbS1aNmXfZZGdIQVdA1 YnlUZvBObaF787NHzeJtW2 KLCwanJaD6IiPKPjuQyqZl I1k2G3Xe9F YRhnsgt2B2UdYrdxzOB+PC 52TTEpPA09wVSjoQRth1bz vYf6RrJbPGYlXJE2jAepDZ woe2ZnIKFv Y29 (more content not included)... [facility] Consent Formson 02-23-2023 Consent Forms [id number]#[id number] [facility] Discharge Instructionson Discharge Instructions [id number]#1.00OT [facility] Telemetry Stripson Telemetry Strips [id number] [facility] Anesthesia Noteon 02-22-2023 Anesthesia Note Patient: DANIEL THOMPSON Age: 52 years Sex: MALE : 1970 Associated Diagnoses: None Author: Kennedy Hanna DO Preoperative Information Anesthesiologist scheduled: Kennedy Hanna DO > 8 hours Anesthesia history: Patient history: No prior anesthesia problems. Family history: No prior anesthesia problems. Re-evaluation prior to induction: Completed. Initial evaluation reviewed: No significant interval change. Review of Systems Constitutional: No fever, No chills. Respiratory: No shortness of breath. Cardiovascular: No chest pain. Gastrointestinal: No heartburn. Neurologic: Alert and oriented X4. ROS reviewed as documented in chart Health Status Allergies: Allergic Reactions (All) No Known Medication Allergies Current medications: (Selected) Inpatient Medications Ordered LR 1,000 mL: 20 mL/hr, IV Lidocaine 1% injectable solution: 0.1 mL, ID, Once, PRN: Other (see comment) ceFAZolin: 2 gm = 50 mL, 100 mL/hr, IV Piggyback, Plastic Surgeon Documented Medications Documented Flomax 0.4 mg oral capsule: 0.4 mg = 1 cap(s), PO, Daily olmesartan 5 mg oral tablet: 5 mg = 1 tab(s), PO, Daily, 30 tab(s), 0 Refill(s) Problem list (past medical history): All Problems BPH (benign prostatic hyperplasia) / SNOMED CT 687441905 / Confirmed Prostate CA / SNOMED CT [id number] / Confirmed Elevated PSA / SNOMED CT 0945195704 / Confirmed, Active Problems (3) BPH (benign prostatic hyperplasia) Elevated PSA Prostate CA Histories Family History: No family history items have been selected or recorded. Procedure history: History of repair of umbilical hernia ([id number]). Biopsy of prostate ([id number]). Colonoscopy ([id number]). Social History Electronic Cigarette/Vaping Assessment Electronic Cigarette Use: Never. Alcohol Assessment Use: Current. Beer, Liquor, 1-2 times per week Tobacco Assessment Never (less than 100 in lifetime) Tobacco Use:. Never tobacco user Tobacco Use:. Substance Abuse Assessment Substance use: Past. Marijuana Comment: states at age 18 none since . Social & Psychosocial Habits Alcohol 01/26/2023 Alcohol Use: Current Type: Beer, Liquor Frequency: 1-2 times per week Substance Use 01/26/2023 Substance use: Past Type: Marijuana Comment: states at age 18 none since - 07/15/2020 13:15 - Brenda Rouse RN Tobacco 07/15/2020 Smoking tobacco use: Never (less than 100 in l 01/26/2023 Smoking tobacco use: Never tobacco user Electronic Cigarette/Vaping 01/26/2023 Electronic Cigarette Use: Never . Physical Examination Airway: Mallampati classification: I (soft palate, fauces, uvula, pillars visible). Distance: Thyromental, Adequate. Temporomandibular joint mobility: Good. Mouth: Adequate opening, Tongue ( Within normal limits ). Neck: Full range of motion. Respiratory: Lungs are clear to auscultation. Cardiovascular: Normal rate, Regular rhythm. Neurologic: Alert, Oriented, No focal deficits. Review / Management Results review ECG interpretation Plan [place] [employer]#(ASA ) physical status classification: Class II. Anesthetic Preoperative Plan Anesthesia: General. . Anesthetic plan, risks, benefits, and alternatives discussed with the patient and/or family. Risks discussed. Patient verbalized understanding. Informed consent was given. Consent was signed by the patient. Anesthetic technique: General anesthesia. [Electronically Signed on: 02/22/2023 07:26 EST] Kennedy Hanna DO [Verified on: 02/22/2023 07:26 EST] Kennedy Hanna DO [facility] Anesthesia Note Patient: DANIEL THOMPSON Age: 52 years Sex: MALE : 1970 Associated Diagnoses: None Author: Kennedy Hanna DO Postoperative Information Post Operative Note: Post Anesthesia Care Unit. Anesthetic utilized: General. Physical Examination VS/Measurements VSS. See nursing flowsheet for vital sign measurements. General: No acute distress. Respiratory: Respirations are non-labored. Cardiovascular: Stable hemodynamics.. Neurologic: Alert, Oriented. Review / Management Condition: Stable. Assessment Anesthetic outcome No anesthetic complications noted. Adequate pain relief. No Complaint of nausea and vomiting. Plan Transfer/ Discharge: Patient can be discharged from PACU when criteria met. Condition stable. [Electronically Signed on: 02/22/2023 11:12 EST] Kennedy Hanna DO [Verified on: 02/22/2023 11:12 EST] Kennedy Hanna DO [facility] Inpatient Patient Summaryon 02-22-2023 [place] [address] Patient Discharge Instructions Name: KAMRON THOMPSON : 1970 Patient Address: [address] [place] [address] Primary Care Provider: Name: Catarino Condon After you are discharged if you find you have any questions, please, call [phone] ext [phone] to speak to a nurse. Discharge Diagnosis: 1:BPH (benign prostatic hyperplasia) Prescription Information: If you have been given a prescription for narcotics, seek immediate medical attention if you have any difficulty breathing or any sudden status changes such as confusion and sleepiness. If you or anyone you know is experiencing suicidal thoughts, mental health, alcohol and/or drug addiction problems; contact the [facility] 01/11 Crisis Hotline -Text 4HUVP yk 395643. If you received any narcotics, sedation, or any other medication that causes drowsiness for the next 24 hours, unless otherwise directed: ? Do not drive a car. ? Do not operate machinery such as power tools, lawn mowers, drills, sewing machines, or stoves ? Avoid alcoholic beverages and drugs for allergies, nerves, or sleep ? Do not make important personal or business decisions or sign any legal documents [facility] would like to thank you for allowing us to assist you with your healthcare needs. The following includes patient education materials and information regarding your injury/illness. CELIA KAMRON MONTES has been given the following list of follow-up instructions, prescriptions, and patient education materials: Follow-up Instructions With: Address: When: Gabe Haley MD With: Address: When: Gabe Haley MD Medications During the course of your visit, your medication list was updated with the most current information. The details of those changes are reflected below: New Medications [facility] #[id number], [address], [place] [id number], [phone] cephalexin (cephalexin 500 mg oral capsule) 1 cap(s) Oral Every 12 hours scheduled time for 3 Days. Refills: 0. traMADol (Ultram 50 mg oral tablet) 1 tab(s) Oral every 6 hours as needed as needed for pain. Refills: 0. Medications to Continue That Have Not Changed Other Medications olmesartan (olmesartan 5 mg oral tablet) 1 tab(s) Oral every day. tamsulosin (Flomax 0.4 mg oral capsule) 1 cap(s) Oral every day. It is important to always keep an active list of medications available so that you can share with other providers and manage your medications appropriately. As an additional courtesy, we are also providing you with your final active medications list that you can keep with you. cephalexin (cephalexin 500 mg oral capsule) 1 cap(s) Oral Every 12 hours scheduled time for 3 Days. Refills: 0. olmesartan (olmesartan 5 mg oral tablet) 1 tab(s) Oral every day. tamsulosin (Flomax 0.4 mg oral capsule) 1 cap(s) Oral every day. traMADol (Ultram 50 mg oral tablet) 1 tab(s) Oral every 6 hours as needed as needed for pain. Refills: 0. Take only the medications listed above. Contact your doctor prior to taking any medications not on this list. Diet & Activity Patient Activity Level: Patient Diet: Patient Activity Restrictions: Comment: Patient education materials, if any, will display below Viruses or Bacteria What?s got you sick? Antibiotics only treat bacterial infections. Viral illnesses cannot be treated with antibiotics. When an antibiotic is not prescribed, ask your healthcare professional for tips on how to relieve symptoms and feel better. Usual Cause Illness Viruses Bacteria Antibiotic Needed Cold/Runny Nose NO Bronchitis/Chest Cold (in otherwise healthy children and adults) NO Whooping Cough Yes Flu NO Strep Throat Yes Sore Throat (except strep) NO Fluid in the middle ear (otitis media with effusion) NO Urinary Tract Infection Yes Antibiotics Aren?t Always the Answer www.cdc.gov/getsmart GET SMART Know When Antibiotics Work U.S. Department of Health and Human Services Centers for Disease Control and Prevention December 2013 [facility] MAGR Intraoperative Recordon 02-22-2023 MAGR Intraoperative Record MAGR Intra-Op Record Summary Primary Physician: Gabe Haley MD Finalized Date/Time: 02/22/23 09:44:27 Pt. Name: CELIAKAMRONO.B./Sex: 1970 MALE Med Rec #: [id number] Physician: Gabe Haley MD Financial #: [id number] Pt. Type: D Room/Bed: / Admit/Disch: 02/22/23 06:31:02 - Institution: Case Times MAGR Entry 1 Patient In Room Time 02/22/23 08:41:00 Out Room Time 02/22/23 09:37:00 Anesthesia Start Time 02/22/23 08:41:00 Stop Time 02/22/23 09:39:00 Surgery Start Time 02/22/23 08:53:00 Stop Time 02/22/23 09:33:00 Last Modified By: Radhika Arredondo RN 02/22/23 09:43:52 Case Attendance MAGR Entry 1 Entry 2 Entry 3 Case Attendee Gabe Haley MD, Christopher J DO Long, Barbara RN Role Performed Surgeon - Primary Anesthesiologist of Nurse'S Aides Teacher Record Time In 02/22/23 08:41:00 02/22/23 08:41:00 02/22/23 08:41:00 Time Out 02/22/23 09:33:00 02/22/23 09:37:00 02/22/23 09:37:00 Procedure Cystoscopy PVP Cystoscopy PVP Cystoscopy PVP Greenlight Laser Greenlight Laser Greenlight Laser Prostate Prostate Prostate Last Modified By: Radhika Arredondo RN, Barbara RN Long, Barbara RN 02/22/23 09:37:23 02/22/23 09:37:23 02/22/23 09:37:23 Entry 4 Entry 5 Entry 6 Case Attendee Suze Mccullough AIRDOX FITTER, Florence AIRDOX FITTER Aren Miles CSFA AIRDOX FITTER Role Performed Nurse'S Aides Teacher Scrub Personnel Admin Dir Time In 02/22/23 08:41:00 02/22/23 08:41:00 02/22/23 08:41:00 Time Out 02/22/23 09:37:00 02/22/23 09:37:00 02/22/23 09:37:00 Procedure Cystoscopy PVP Cystoscopy PVP Cystoscopy PVP Greenlight Laser Greenlight Laser Greenlight Laser Prostate Prostate Prostate Last Modified By: Radhika Arredondo RN, Barbara RN Long, Barbara RN 02/22/23 09:37:23 02/22/23 09:37:23 02/22/23 09:37:23 General Comments: Markie hernandez reps Surgical Procedures MAGR Pre-Care Text: A.20 Verifies operative procedure, surgical site, and laterality Im.150 Develops individualized plan of care Entry 1 Procedure Cystoscopy PVP Primary Procedure Yes Greenlight Laser Prostate Primary Surgeon Gabe Haley MD Surgeon Comment CYSTO, GREENLIGHT Start 02/22/23 08:53:00 Stop 02/22/23 09:33:00 Anesthesia Type General Surgical Service Urology Wound Class Clean-Contaminated Technique Details Closure Technique N/A Entire procedure No was performed via laparoscope or robotic assistance Last Modified By: Radhika Arredondo RN 02/22/23 09:37:24 Post-Care Text: O.730 The patient's care is consistent with the individualized perioperative plan of care General Case Data MAGR Pre-Care Text: A.350.1 Classifies surgical wound Entry 1 Case Information OR MAGR OR 05 Case Level Level 4 Wound Class Clean-Contaminated Specialty Urology ASA Class 2 Diagnosis Preop Diagnosis ELEVATED BPH Postop Same As Preop Yes Postop Diagnosis ELEVATED BPH Blunt or No Is the procedure No penetrating injury considered occured prior to Emergent/Urgent? the start of the procedure: Last Modified By: Radhika Arredondo RN 02/22/23 08:58:16 Post-Care Text: O.760 Patient receives consistent and comparable care regardless of the setting Time Out MAGR Entry 1 Procedure(s) Cystoscopy PVP Greenlight Laser Prostate Time Out Checklist Verifications Patient Verified Yes Allergies Verified Yes Procedure to be Yes Presence of Yes Performed Verified Necessary with Consent Procedural Equipment, Devices, and Implants Verified Site Verification, Yes Site Marking, Site Marking Alternative, and/or Site Marking Exception in Accordance with Facility Policy Anesthesia Review Antibiotic Received Yes All Anesthesia Yes Within an Concerns Addressed Appropriate Time Interval Prior to Surgical Incision Surgeon Review Anticipated Blood Yes Loss Risk, Expected Case Duration, and Critical and Non-Routine Steps to be Performed Addressed Nurse Review Team Introductions Yes Equipment Concerns Yes Completed Addressed Fall Risk Concerns Yes Fire Risk Yes Addressed Assessment Completed and Interventions Performed Skin Assessment Yes Diagnostic and Yes Concerns Addressed Radiological Test Results Displayed are Appropriate and Labeled Skin Prep Allowed Yes Sterilization Yes to Dry Prior to Concerns Addressed Incision Venous n/a Laser Safety Yes Thromboembolism Measures Implemented Prophylaxis Ordered Latex Precautions Yes Other Concerns Yes Implemented Addressed Time Out Gabe Haley MD, Time Out Time 02/22/23 07:52:00 Participants Kennedy Hanna DO, Radhika Arredondo RN, Suze Mccullough Wilkins AIRDOX FITTER, Florence AIRDOX FITTER CSFA, Aren Miles CSFA AIRDOX FITTER Last Modified By: Radhika Arredondo RN 02/22/23 09:01:11 Patient Positioning MAGR Pre-Care Text: A.280 Identifies baseline musculoskeletal status Im.40 Positions the patient Im.80 Applies safety devices Entry 1 Procedure Cystoscopy PVP Body P (more content not included)... Normal [facility] PACU Recordon 3 [facility] PACU Record [facility] PACU Record Summary Primary Physician: Gabe Haley MD Finalized Date/Time: 02/22/23 10:09:13 Pt. Name: KAMRON THOMPSON/Sex: 1970 MALE Med Rec #: [id number] Physician: Gabe Haley MD Financial #: [id number] Pt. Type: D Room/Bed: / Admit/Disch: 02/22/23 06:31:02 - Institution: PACU Case Times MAGR Entry 1 In PACU I 02/22/23 09:37:00 Discharge from PACU 02/22/23 10:09:00 I Last Modified By: Roni Millard RN 02/22/23 10:09:10 Finalized By: Roni Millard RN Document Signatures Signed By: Roni Millard RN 02/22/23 10:09 [facility] MAGR Postoperative Recordon 02-22-2023 MAGR Postoperative Record MAGR Phase II Record Summary Primary Physician: Gabe Haley MD Finalized Date/Time: 02/22/23 11:43:48 Pt. Name: KAMRON THOMPSON/Sex: 1970 MALE Med Rec #: [id number] Physician: Gabe Haley MD Financial #: [id number] Pt. Type: D Room/Bed: / Admit/Disch: 02/22/23 06:31:02 - Institution: Phase II Case Times MAGR Pre-Care Text: Patient is free from s/s of injury. Patient remains free from compromised physical state related to surgery or anesthesia. Patient comfort maintained. Patient/family verbalize understanding of discharge instructions. Entry 1 In PACU II 02/22/23 10:11:00 Discharge from PACU 02/22/23 11:18:00 II Last Modified By: Christiano Ford RN 02/22/23 11:43:44 Post-Care Text: The patient remains free from s/s of injury. Patient's vital signs stable, circulation maintained, return to preop mental and physical status, opsite/dressing intact, minimal or absent nausea and vomiting, tolerates po intake. Patient verbalizes adequate pain control. Patient/family express understanding of discharge instructions. Finalized By: Christiano Ford RN Document Signatures Signed By: Christiano Ford RN 02/22/23 11:43 [facility] MAGR Preoperative Recordon 1 04-24-2022 MAGR Preoperative Record MAGR Pre-Op Record Summary Primary Physician: Gabe Haley MD Finalized Date/Time: 02/22/23 08:55:46 Pt. Name: KAMRON THOMPSON/Sex: 1970 MALE Med Rec #: [id number] Physician: Gabe Haley MD Financial #: [id number] Pt. Type: D Room/Bed: / Admit/Disch: 02/22/23 06:31:02 - Institution: Pre-Op Case Times MAGR Pre-Care Text: Patient will be optimally prepared for surgery. Patient is free from s/s of injury. Provide information to patient/family related to plan of care. Verify patient allergies. Confirm identity and verify consent before the operative or invasive procedure. Entry 1 Patient Arrival Time 02/22/23 06:51:00 Preop Departure 02/22/23 08:39:00 Last Modified By: Radhika Arredondo RN 02/22/23 08:55:45 Post-Care Text: Patient is prepared mentally and physically and is ready for surgery. The patient remains free from s/s of injury. Patient/family express understanding of plan of care and participate in decisions affecting his or her perioperrative plan of care. Allergies documented appropriately. Patient identifiers and consent correct. General Comments: Pt arrives to psw ambulatory. PT denies cp, sob, cough or flu like symptoms. Pt denies pacemaker/defibillator or sleep apnea. Finalized By: Radhika Arredondo RN Document Signatures Signed By: Radhika Arredondo RN 02/22/23 08:55 [facility] Patient Handouton 02-22-2023 Patient Handout [facility] Progress Note - Nurseon - Progress Note - Nurse Pre-op call done, instructed to arrive @ 0630 on 02-22-23, NPO after midnight, and need for ride to and from hospital-verbalized understanding. [Electronically Signed on: 02/21/2023 12:24 EST] Kezia Fuller RN [Verified on: 02/21/2023 12:24 EST] Kezia Fuller RN [facility] C Urineon 01-28-2023 C Urine No growth at 2 days. [facility] Comment on above: Performed By: #### 6 [id number] ####[facility] (DEFAULT)[address] [place] [id number] Progress Note - Nurseon -2 0-2023 Progress Note - Nurse Dr Campbell reviews pt chart and no new orders were received. [Electronically Signed on: 01/28/2023 09:31 EDT] [place], Alexal RN [Verified on: 01/28/2023 09:31 EDT] [place], Sidsel RN [facility] Coding Summaryon 01-27-2023 Coding Summary HTMLBase 64 HzbcoqreCGc8pRx+PGhlYW Q+PJ4ODROrU26hpLSvlN1k W9SJZSqMClytCLOGQSxIDn CkenNsQG4prRHtICLl IC8+NT4pHCAxHgzbkJAmq5 I5jWB5N79bsd8zAQomqFJ8 MMKxFmMdaurnz0tffTr2SD cuNmluOyBt MRGzpW80UWS4oW95Wh85gS LgqNYki5dfgXg4ToOzBUWi XRL7uQaqIDpcu9WjKMSxC3 9rmXOmd8J1 CXDpoUequZBzQrRxsNR9uZ 8zNUaafqtxd2wbdgbvVtd1 ip66oWSci4R9aAJ9Y6Smqs J6FPUovIQn BedvoTIGcE2kmzmnu8lvbr guEzLuNJQbZPf8TOq8CPZt iMmiNlCpQM66FWT4ERJcrn NkF7XsDSMj mGasYfN0g1K9Gt0HC9XVAp yjK3YPZMLHWEuxnUL+PC90 vk41L1QzCxleSpz5TAXyMQ M2wCO9bD2w JMVvIMase8J7cYI4G0Vkvh Whjh0lm1dyOOYgCDfrU69w rNTcv0A3AEQlhXF7SWZtcJ woQbDufP90 Oyc+BGZrjTfhl0HaRztet7 ihe4yyvYi2HqamFDCsknCy uEmwAZT5a2ZxOi5aMNAzgT F1kYY4qU9i RkWiQvI5KWdfT761EvUlpF ZiBdjaP67nV0CmpVY+PHRy Okk1PVLglGpfWD1cZ6HeVA RpbmctbGVm hVjgDS9mBWEvzridVIDqvI 2gAUPjA2z5RrPxKsP1ANyj M8YlHLMgnucbBk91iO2vHw RsIjG2ZThm A3HlosW2MDXixUEfDUqjTK F7C00wb6D5BCKvQGDnLJF4 bOK1kA1urBhbfdeozRMlwN sgdmVydGlj LOfoEJkdZ772GCUflAlwMg NvZGluZyBEYXRlOiAgMTAv MTkvMjAyMzwvdGQ+PHRkIH T8qTleKKOi cVPoLMzsMt4zsGbcaTbtAW 1wQUWyustfVRZczV7wDGEr bRMtnQieRH0tUBZfbxsns7 99SjPlRMN8 PNWqkDHeY9IwzW2ySkMmAQ MhIYIgQ7XhvIAyRSqmI946 SUzrNaN6CKQepeHoP3OgXN FsaWduOiB0 p6F9Yc6Bf1HiggwfE5IipY SwJwQmPeqyRYk4T0JcIbkr dHI+EU55MWPyMG29IFs4XO H6vRosFBzo VTNsC2HerA3hOqEiQNRjXC RkOyc+PHRhYmxlIHdpZHRo CIptLGEgYjSgxWtsFW8kUy 9yZGVyLWNv oOxlvISsHjFby5qdPTNcSU enZJ3hgUbdD9KfpQX8NIZl h4r0Uw70B04eE9PsxNE+PG HphAN6hXJ3 vN4zJdWxRqD9KInaO523Tv YdcLBdTcsom9aea9jtdHv7 ItY8YWNwekUftJstCTT3r0 PlBg51G94s IHdpZHRoPSIxNSUiIHZhbG wisn2tvD4uYb9+PGNvbCB3 eZN8hP0jIaGlDmT6IWktC5 49InRvcCIv Tyiul0rxk7munUe5DpUmJC DnyiQpaRvsREW4z2DiRn30 C3PdjSpkb0QvWwo5zb55iW Cfn2S4iJI6 M2GbJYBgjettnKKzsPyvUY 0dFSKtasgqMDQyeL9mULHt H2g7LdDfTqY3IDunL5Vnsc G9TDFglNRl ZDSfkTUSuT9sigzdr7quok suPfBiVEJfNOo5XIj8JTPr aUbgXoLdWGY6XfC7FNC7kS NrbN5hhCgz ksihsS0cUxy+WIW5fBYkoJ IEBJ6rWyldjVQ+PHRkIHN0 jPaxJXorDJMksG1nLNQjI5 j6RdWmFrP1 FTbaL9ZmejL4GIEakJPrHP NzgHXNtX2imvjgk6uifkok RiOuFKMxEIo1NKh8YAEniD duOiBsZWZ0 NoH8QQU5fZAvlW0ozHeryd vsnU6wLeu+QmlydGggRGF0 ZMg0G4YjMle7XIVfsTgeXO 0ncGFkZGlu Uw3imDtykWjuZM6fNULusr zwm988QdIls3alSBTgvQVo SFiuCNO3Z00uh4O0PVIyHE DgBJU3sND6 hC8atIpppsnmnEIqfGyxlx YtkZijTKahTCtyJ368OXUv bXcaFfAvVGy7Q2RsBva4DC ArhAvtLB2e rOFuAJrvZs0dpGvgtGmzNH 8qWQEooourd517KkZxi9hm SJAbsYAtEEadUSB5W87by6 J8WQGpPSWw TPB0iMX6mS9jzQwtapzarU VmdDsgdmVydGljYWwtYWxp J083HJIacPtpQdZwjUf5N5 SaSgb0AAZl wFmfZZ3gnBNiGXcvKf4fwB uuhJvcRX3vUEEhhjdih707 ZaQzi1hcENIyfHUyXUxhAB S2B11la4A3 HOSlUWMgSCG0xII3bS4dgB lnbjogbGVmdDsgdmVydGlj SDofKGomS527HVPgsYsiDc BhdGllbnQg WIgoZOu2G0HwWbooiYW+PC 25RGAbHT64sNTuvFGvi6bs aPz3GuKfMXWfMEV0gJxjIF kzo2VbLFBf T08toXYqe6D5DQXosEqgoS GzPrDqwNS3tV1iSLvqqelx i7xumwgvYjoti7ogdo93jN 39E20bXQpb ZHRoPSIzMCUiIHZhbGlnbj 9mxT1kEr3+IZEhtXN0hVP4 iY5nPFEvZgM4WOzyR801Gd RvcCIvPjxj f2nbm9eulPr6HvG3TBJcxv JrxXqzFDL0y2YmCw93R57r IHdpZHRoPSIyMCUiIHZhbG axxr1siR8e Ii8+FGWnuQW8iMR1iB8tSi KkBeZ4AWrtH249YpFipDYs YcxwU70pK7RweQG+PHRyPj j6UAVzgRia QR4cnWMzLYmjSm0qZXV1Lz AfHnAxLXnxX0XsKDFnjjhg gusynRN5KUKwCVQajK70Bc 9udDogMTBw sJSLeI2auqooq8zxkhzcAr DqLMMaWRe3UZo1SAGmwMab AcQtILQ2GyG2EOE9eLWrhQ 1hbGlnbjog dX0eT9PwNCUffoeeRo78fR 0iNaTtEaN8XRatZqp+QU5E NeCZZmdzHOJQFoXNKX2KRi wvdGQ+PHRk ODQ4tUytSVseLMGdwR1pYQ PbC0r3ZaTrOzC3WEgmU2Ah JUSumizaBv98yM5rOsEwZa J4VFtyD0Eq goM4SJKlfQHeNFpmZXG5U3 7jk9O2SPDgZJReMSG5cCJ9 qC2onSrklkzofIAhqVfpiu VydGljYWwt YWdlY178PKUhjDsrYlZcVs W7KnP0IwK5S8TnEsk2JYFt lOwmZB5qbWWjUIcrQa3gfR nqtTmaGD7z KVAgpjysJLTyzQ9oLTVjfU FevDsiYE0aLSLpfxkxa263 HdTnBWA1VMNdqYGoU4IlbQ 9yOiAjMDAw ZHTuA6GevSCjWXjnH826IY kePnL9HAOqinUiS4ZqNSLf wYjwGcH4f9C2Jo51GhOXMH FyczwvdGQ+ MAFnDWV9eAniMAwmONYltJ 0cKMCoR7u5OxVyHmT0BUcb H2OfGSGlwxqsQo69yG6eTw UmFrV8LFua I9RmxvA2MSUygDPrJUmiLA C9F71eu1Y3OLVuPXNzTQP8 nFJ9sE5pyWsqmdhcbWCeyZ sgdmVydGlj UZdqLVjbY814CLGitSwgOy 2BQPB0Z4AgXqj2QPAfkUzo VT4qbCAyLTfkSa9heTxuyJ iyUS0mEPGr omhlQUAwbG5zCRSajFPuwI btDV4cLGDjbzdiv706SuMz SYW0SPGfdIYfG7LziJ9fZz AjMDAwMDAw Q2CeeTOzXTiuV772TTfqOs L7AGYxckVwS3ZeCCQbdFsk OtY3v9H6Dp9TJKvfnRO+PC 38pn71T0Xm StafPol6ILRxSZN3wSX1rV 9gJWKsKVyug9W9jJO1G5Av vlBufp0zl5glYBZoZRntK8 3jxDSvm9E1 IOToeMI7BZNncZkpCyTsqY 93Oyc+OFZriKukb5DyMmhf g5ngk3pyqBn9QgLdNADuzk FsaWduPSJ0 x7IlOn28C17oXJvoIMOaET JvLKDdTUTldMrhdc1rfM8c Ii8+KTDybGQ9eUR2mV4lJg QuTmB2QDlh P386RuSfpUJhSrmtm9hnq0 gviVc7EbGuZGYkpzFenVut XFS9k0TqVe65M8LbeMhfy5 DiYgb2dk26 cFIes0N9hAB4E5NdMVCmqp emmFAdgGsfQX6aIRCdktsn NQXegZ1dCEKzQ9u3OyHvBx M8MRbeO2Ll iqF8UFLkoLPpXSNicPZIgS 1uivikb8xcsvfnXlRsROPy SLt6SEs7WUGhbUfxAwXhFD E4HfZ3RCF4 tOXfzE8okYcgurxwyW0jTt c+RCg4v1cfnUZmOW3juOG8 HO44VT60lWYff7B0xBE9H2 BhZGRpbmct pagszXG4KLJjEQLmeH84Yy 7prKudBq2pYXPwXMZ7SHHv zLEoF5XzbZ1oBhRuGAFuTH GpM7JgdOUy MCrvB804ZMrjObS1SWKiuh TcS5TaPQTneJxiExR2u3M0 To7BIC05PB38ZX45kFRwx3 A2yKB9N9He EMLsgdyfbhbqfBV9XLIdVZ HquT60Ue9gzTrrGd9nUHUo BJX2MANatGRmV3KwgD1bLf AjMDAwMDAw K0BjzQOxDEsmA429RJarGg M3VQAciySjA9AxVJQktAes CgD4f5U8Lg0SFx64GX55WS 02lBWvc7V0 dQU1K0GgJTHebwewqkwzaJ T3SCPcXHNaxX64Ar7xmLfd Ex9oWVWfXNL9XCPjdYTsB7 IppN7jQhZz RXQyWSMbS5KsrIHuNQucS6 36LNbfOsU1AZZlifAcB1Ng EGAmpIqsJbJ7b7D3Gb3QKM spkhg9H8Fq PjwvdHI+DH85JKMkCG77nV FqbAEwe4ulnKr4AtFqHHDz NHR1hKxkJKuya1CjIHZpC7 5gdSVbg9F2 IGN (more content not included)... [facility] Provider Orderson 01-27-2023 Provider Orders [id number] 01-26-2023 Anion gap [Moles/Vol] 14.0 mmol/L Normal 5.0-19.0 [facility] Comment on above: Performed By: #### 1 [id number], [id number] ####[facility] (DEFAULT)[address] [place] [address] Calcium [Mass/Vol] 9.3 mg/dL Normal 8.9-10.3 [facility] Comment on above: Performed By: #### 1 [id number], [id number] ####[facility] (DEFAULT)[address] [place] [address] Chloride [Moles/Vol] 102 mmol/L Normal 101-111 [facility] Comment on above: Performed By: #### 1 [id number], [id number] ####[facility] (DEFAULT)[address] [place] [address] CO2 [Moles/Vol] 26 mmol/L Normal 21-32 [facility] Comment on above: Performed By: #### 1 [id number], ####[facility] (DEFAULT)[address] [place] [address] Creatinine [Mass/Vol] 1.02 mg/dL Normal 0.90-1.30 [facility] Comment on above: Performed By: #### 1 [id number], ####[facility] (DEFAULT)[address] [place] [address] 55903 eGFR AA >60 Invalid Interpretation Code [facility] Comment on above: Performed By: #### 1 [id number], ####[facility] (DEFAULT)[address] [place] [address] 49721 eGFR Non AA >60 Invalid Interpretation Code [facility] Comment on above: Performed By: #### 1 [id number], ####[facility] (DEFAULT)[address] [place] [address]95[address] Glucose [Mass/Vol] 98.0 mg/dL Normal 74.0-118.0 [facility] Comment on above: Performed By: #### 1 [id number], ####[facility] (DEFAULT)[address] [place] [address] 87873 Osmolality 278 mOsm/L Invalid Interpretation Code [facility] Comment on above: Performed By: #### 1 [id number], ####[facility] (DEFAULT)[address] [place] [address] Potassium [Moles/Vol] 4.0 mmol/L Normal 3.6-5.1 [facility] Comment on above: Performed By: #### 1 [id number], ####[facility] (DEFAULT)[address] [place] [address] Sodium [Moles/Vol] 138.0 mmol/L Normal 136.0-144.0 [facility] Comment on above: Performed By: #### 1 [id number], ####[facility] (DEFAULT)[address] [place] [address] Urea nitrogen [Mass/Vol] 19 mg/dL Normal 8-26 [facility] Comment on above: Performed By: #### 1 [id number], [id number] ####[facility] (DEFAULT)[address] [place] [address] Urea nitrogen/Creatinine [Mass ratio] 18.6 mg/mg High 4.6-16.2 [facility] Comment on above: Performed By: #### 1 [id number], [id number] ####[facility] (DEFAULT)[address] [place] [address] Extra Joe 01-26-2023 Tube Collected Yes Invalid Interpretation Code [facility] Comment on above: Performed By: #### 1 [id number], [id number] ####[facility] (DEFAULT)[address] [place] [address] CBC with Auto Differentialon 11-12-2022 Basophils (Bld) [#/Vol] [facility] Basophils/100 WBC (Bld) 0 % 0 - 2 % [facility] Eosinophils (Bld) [#/Vol] [facility] Eosinophils/100 WBC (Bld) 0 % Low 1 - 4 % [facility] Erythrocyte distribution width (RBC) [Ratio] 11.7 % Low 11.8 - 14.4 % [facility] Hematocrit (Bld) [Volume fraction] 43.9 % 40.7 - 50.3 % [facility] Hemoglobin (Bld) [Mass/Vol] 14.9 g/dL 13.0 - 17.0 g/dL [facility] Immature granulocytes (Bld) [#/Vol] 0.03 10*3/uL [facility] Immature granulocytes/100 WBC (Bld) 0 % 0 [facility] Interpretation and review of laboratory results Abnormal [facility] Lymphocytes/100 WBC (Bld) 19 % Low 24 - 43 % [facility] Lymphocytes/100 WBC (Bld) 1.86 % [facility] MCH (RBC) [Entitic mass] 30.8 pg 25.2 - 33.5 pg [facility] MCHC (RBC) [Mass/Vol] 33.9 g/dL 28.4 - 34.8 g/dL [facility] MCV (RBC) [Entitic vol] 90.9 fL 82.6 - 102.9 fL [facility] Monocytes/100 WBC (Bld) 7 % 3 - 12 % [facility] Monocytes/100 WBC (Bld) 0.63 % [facility] Neutrophils/100 WBC (Bld) 74 % High 36 - 65 % [facility] Nucleated RBC/100 WBC (Bld) [Ratio] 0.0 % 0.0 per 100 WBC [facility] Platelet mean volume (Bld) [Entitic vol] 9.2 fL 8.1 - 13.5 fL [facility] Platelets (Bld) [#/Vol] 278 10*3/uL [facility] RBC (Bld) [#/Vol] 4.83 10*6/uL 4.21 - 5.7 7 m/uL [facility] Segmented neutrophils/100 WBC (Bld) 7.13 % [facility] WBC other (Bld) [#/Vol] 9.7 [facility] CBC with Diffon 11-12-2022 Abs. Basophil <0.03 Normal 0.00-0.20 [facility] Comment on above: Performed By: #### C MPX, CDP #### [employer] [address] [place] [address] [employer]: Mauro Dunlap MD Abs. Eosinophil <0.03 Normal 0.00-0.44 [facility] Comment on above: Performed By: #### C MPX, CDP #### [employer] [address] [place] [address] [employer]: Mauro Dunlap MD Abs.Imm.Granulocyte 0.03 k/uL Normal 0.00-0.30 [facility] Comment on above: Performed By: #### C MPX, CDP #### [employer] [address] [place] [address] [employer]: Mauro Dunlap MD Abs.Neutrophil (Seg) 7.13 k/uL Normal 1.50-8.10 [facility] Comment on above: Performed By: #### C MPX, CDP #### [address] [address] [employer]: Mauro Dunlap MD Basophils/100 WBC (Bld) 0 % Normal 0-2 [facility] Comment on above: Performed By: #### C MPX, CDP #### [facility] [employer] [address] [place] [id number] [employer]: Mauro Dunlap MD Eosinophils/100 WBC (Bld) 0 % Low 1-4 [facility] Comment on above: Performed By: #### C MPX, CDP #### [address] [id number] [employer]: Mauro Dunlap MD Erythrocyte distribution width (RBC) [Ratio] 11.7 % Low 11.8-14.4 [facility] Comment on above: Performed By: #### C MPX, CDP #### [facility] [employer] [address] [place] [id number] [employer] Machine Setter: Mauro Dunlap MD Hematocrit (Bld) [Volume fraction] 43.9 % Normal 40.7-50.3 [facility] Comment on above: Performed By: #### C MPX, CDP #### [facility] [employer] [address] [place] [address] [employer] Machine Setter: Mauro Dunlap MD Hemoglobin (Bld) [Mass/Vol] 14.9 g/dL Normal 13.0-17.0 [facility] Comment on above: Performed By: #### C MPX, CDP #### [facility] [employer] [address] [place] [address] [employer] Machine Setter: Mauro Dunlap MD Immature granulocytes/100 WBC (Bld) 0 % Normal 0 [facility] Comment on above: Performed By: #### C MPX, CDP #### [address] [address] [employer] Machine Setter: Mauro Dunlap MD Lymphocytes (Bld) [#/Vol] 1.86 10*3/uL Normal 1.10-3.70 [facility] Comment on above: Performed By: #### C MPX, CDP #### [address] [address] [employer] Machine Setter: Mauro Dunlap MD Lymphocytes/100 WBC (Bld) 19 % Low 24-43 [facility] Comment on above: Performed By: #### C MPX, CDP #### [address] [address] [employer] Machine Setter: Mauro Dunlap MD MCH (RBC) [Entitic mass] 30.8 pg Normal 25.2-33.5 [facility] Comment on above: Performed By: #### C MPX, CDP #### [address] [address] [employer] Machine Setter: Mauro Dunlap MD MCHC (RBC) [Mass/Vol] 33.9 g/dL Normal 28.4-34.8 [facility] Comment on above: Performed By: #### C MPX, CDP #### [address] [address] [employer] Machine Setter: Mauro Dunlap MD MCV (RBC) [Entitic vol] 90.9 fL Normal 82.6-102.9 [facility] Comment on above: Performed By: #### C MPX, CDP #### [address] [address] [employer] Machine Setter: Mauro Dunlap MD Monocytes (Bld) [#/Vol] 0.63 10*3/uL Normal 0.10-1.20 [facility] Comment on above: Performed By: #### C MPX, CDP #### [address] [address] [employer] Machine Setter: Mauro Dunlap MD Monocytes/100 WBC (Bld) 7 % Normal 3-12 [facility] Comment on above: Performed By: #### C MPX, CDP #### [address] [address] [employer] Machine Setter: Mauro Dunlap MD Neutrophil (Seg) 74 % High 36-65 [facility] Comment on above: Performed By: #### C MPX, CDP #### [address] [address] [employer] Maker Machine Setter: Mauro Dunlap MD NRBC Automated 0.0 per 100 WBC Normal 0.0 [facility] Comment on above: Performed By: #### C MPX, CDP #### [address] [address] [employer] Machine Setter: Mauro Dunlap MD Platelet mean volume (Bld) [Entitic vol] 9.2 fL Normal 8.1-13.5 [facility] Comment on above: Performed By: #### C MPX, CDP #### [address] [address] [employer] Maker Machine Setter: Mauro Dunlap MD Platelets (Bld) [#/Vol] 278 10*3/uL Normal 138-453 [facility] Comment on above: Performed By: #### C MPX, CDP #### [address] [address] [employer] Machine Setter: Mauro Dunlap MD RBC (Bld) [#/Vol] 4.83 10*6/uL Normal 4.21-5.77 [facility] Comment on above: Performed By: #### C MPX, CDP #### [address] [address] [employer] Maker Machine Setter: Mauro Dunlap MD WBC (Bld) [#/Vol] 9.7 10*3/uL Normal 3.5-11.3 [facility] Comment on above: Performed By: #### C MPX, CDP #### [facility] [employer] [address] [place] [address] [employer] Machine Setter: Mauro Dunlap MD Comp Metabolic Pr/rfx MGon 0 - Albumin [Mass/Vol] 4.4 g/dL Normal 3.5-5.2 [facility] Comment on above: Performed By: #### C MPX, CDP #### [facility] [employer] [address] [place] [address] [employer] Machine Setter: Mauro Dunlap MD Albumin/Glob Ratio 1.6 Normal 1.0-2.5 [facility] Comment on above: Performed By: #### C MPX, CDP #### [facility] [employer] [address] [place] [address] [employer] Maker Machine Setter: Mauro Dunlap MD Alkaline Phos 56 U/L Normal 40-129 [facility] Comment on above: Performed By: #### C MPX, CDP #### [facility] [employer] [address] [place] [address] [employer] Machine Setter: Mauro Dunlap MD ALT [Catalytic activity/Vol] 22 U/L Normal 5-41 [facility] Comment on above: Performed By: #### C MPX, CDP #### [facility] [employer] [address] [place] [address] [employer] Machine Setter: Mauro Dunlap MD Anion gap [Moles/Vol] 10 mmol/L Normal 9-17 [facility] Comment on above: Performed By: #### C MPX, CDP #### [facility] [employer] [address] [place] [address] [employer] Maker Machine Setter: Mauro Dunlap MD AST [Catalytic activity/Vol] 17 U/L Normal <40 [facility] Comment on above: Performed By: #### C MPX, CDP #### [address] [address] [employer] Maker Machine Setter: Mauro Dunlap MD Bilirubin [Mass/Vol] 1.0 mg/dL Normal 0.3-1.2 [facility] Comment on above: Performed By: #### C MPX, CDP #### [facility] [employer] [address] [place] [address] [employer] Maker Machine Setter: Mauro Dunlap MD Calcium [Mass/Vol] 9.1 mg/dL Normal 8.6-10.4 [facility] Comment on above: Performed By: #### C MPX, CDP #### [address] [address] [employer] Maker Machine Setter: Mauro Dunlap MD Chloride [Moles/Vol] 104 mmol/L Normal 98-107 [facility] Comment on above: Performed By: #### C MPX, CDP #### [address] [address] [employer] Maker Machine Setter: Mauro Dunlap MD CO2 [Moles/Vol] 26 mmol/L Normal 20-31 [facility] Comment on above: Performed By: #### C MPX, CDP #### [address] [address] [employer] Maker Machine Setter: Mauro Dunlap MD Creatinine [Mass/Vol] 1.0 mg/dL Normal 0.7-1.2 [facility] Comment on above: Performed By: #### C MPX, CDP #### [facility] [employer] [address] [place] [address] [employer] Maker Machine Setter: Mauro Dunlap MD GFR/1.73 sq M.predicted among non-blacks MDRD (S/P/Bld) [Vol rate/Area] mL/min/{1.73_m2} Normal >60 [facility] Comment on above: Result Comment: These results are not intended for use in patients <18 years of age. eGFR results are calculated without a race factor using the 2020 CKD-EPI equation. Careful clinical correlation is recommended, particularly when comparing to results calculated using previous equations. The CKD-EPI equation is less accurate in patients with extremes of muscle mass, extra-renal metabolism of creatine, excessive creatine ingestion, or following therapy that affects renal tubular secretion. Performed By: #### C MPX, CDP #### [facility] [address] [place] [address] [employer] Maker Machine Setter: Mauro Dunlap MD Glucose [Mass/Vol] 90 mg/dL Normal 70-99 [facility] Comment on above: Performed By: #### C MPX, CDP #### [facility] [employer] [address] [place] [address] [employer] Maker Machine Setter: Mauro Dunlap MD Potassium [Moles/Vol] 3.9 mmol/L Normal 3.7-5.3 [facility] Comment on above: Performed By: #### C MPX, CDP #### [facility] [employer] [address] [place] [address] [employer] Maker Machine Setter: Mauro Dunlap MD Protein [Mass/Vol] 7.1 g/dL Normal 6.4-8.3 [facility] Comment on above: Performed By: #### C MPX, CDP #### [facility] [address] [place] [address] [employer] Maker Machine Setter: Mauro Dunlap MD Sodium [Moles/Vol] 140 mmol/L Normal 135-144 [facility] Comment on above: Performed By: #### C MPX, CDP #### [facility] [address] [place] [address] [employer] Maker Machine Setter: Mauro Dunlap MD Urea nitrogen [Mass/Vol] 13 mg/dL Normal 6-20 [facility] Comment on above: Performed By: #### C MPX, CDP #### [employer] [address] [id number] [employer] Machine Setter: Mauro Dunlap MD Comprehensive Metabolic Pane l w/ Reflex to MGon 11-12-2022 Albumin [Mass/Vol] 4.4 g/dL 3.5 - 5.2 g/dL [facility] Albumin/Globulin [Mass ratio] 1.6 {ratio} 1.0 - 2.5 [facility] ALP [Catalytic activity/Vol] 56 U/L 40 - 129 U/L [facility] ALT [Catalytic activity/Vol] 22 U/L 5 - 41 U/L [facility] Anion gap [Moles/Vol] 10 mmol/L 9 - 17 mmol/L [facility] AST [Catalytic activity/Vol] 17 U/L NINF - 40 U/L [facility] Bilirubin [Mass/Vol] 1.0 mg/dL 0.3 - 1.2 mg/dL [facility] Calcium [Mass/Vol] 9.1 mg/dL 8.6 - 10. 4 mg/dL [facility] Chloride [Moles/Vol] 104 mmol/L 98 - 107 mmol/L [facility] CO2 [Moles/Vol] 26 mmol/L 20 - 31 mmol/L [facility] Creatinine [Mass/Vol] 1.0 mg/dL 0.7 - 1.2 mg/dL [facility] GFR/1.73 sq M.predicted MDRD (S/P/Bld) [Vol rate/Area] - PINF [facility] Comment on above: These results are not intended for use in patients <18 years of age. eGFR results are calculated without a race factor using the 2020 CKD-EPI equation. Careful clinical correlation is recommended, particularly when comparing to results calculated using previous equations. The CKD-EPI equation is less accurate in patients with extremes of muscle mass, extra-renal metabolism of creatine, excessive creatine ingestion, or following therapy that affects renal tubular secretion. Glucose [Mass/Vol] 90 mg/dL 70 - 99 mg/dL [facility] Potassium [Moles/Vol] 3.9 mmol/L 3.7 - 5.3 mmol/L [facility] Protein [Mass/Vol] 7.1 g/dL 6.4 - 8.3 g/dL [facility] Sodium [Moles/Vol] 140 mmol/L 135 - 144 mmol/L [facility] Urea nitrogen [Mass/Vol] 13 mg/dL 6 - 20 mg/dL [facility] No Panel Informationon 11-12 [facility] CBC AUTO DIFFon 01-23-2022 BASO # 0.0 103/ul Normal 0.0-0.1 [facility] Comment on above: Performed By: #### C BC #### [facility] [address] [place] [address] Dr. Karin Chamorro Basophils/100 WBC (Bld) 0.6 % Normal 0.2-2.0 [facility] Comment on above: Performed By: #### C BC #### [facility] [address] [address] [address] Karin Chamorro EO # 0.5 103/ul Normal 0.0-0.7 [facility] Comment on above: Performed By: #### C BC #### [facility] [address] [address] [address] Karin Chamorro Eosinophils/100 WBC (Bld) 6.8 % Normal 0.9-7.0 [facility] Comment on above: Performed By: #### C BC #### [facility] [address] [address] [address] Karin Chamorro Erythrocyte distribution width (RBC) [Ratio] 11.8 % Normal 11.0-15.0 [facility] Comment on above: Performed By: #### C BC #### [facility] [address] [place] [address] Dr. Karin Chamorro Hematocrit (Bld) [Volume fraction] 42.7 % Normal 42.0-54.0 [facility] Comment on above: Performed By: #### C BC #### [facility] [address] [address] [address] Karin Chamorro Hemoglobin (Bld) [Mass/Vol] 14.6 g/dL Normal 14.0-18.0 [facility] Comment on above: Performed By: #### C BC #### [facility] [address] [place] [address] Dr. Karin Chamorro IG # 0.01 10e3/ul Normal 0.00-0.03 [facility] Comment on above: Performed By: #### C BC #### [facility] [address] [place] [address] Dr. Karin Chamorro IG % 0.1 % Normal 0.0-0.5 [facility] Comment on above: Performed By: #### C BC #### [facility] [address] [place] [address] Dr. Karin Chamorro LYMPH # 2.8 103/ul Normal 1.2-3.8 [facility] Comment on above: Performed By: #### C BC #### [facility] [address] [place] [address] Dr. Karin Chamorro Lymphocytes/100 WBC (Bld) 39.8 % Normal 20.5-60.0 [facility] Comment on above: Performed By: #### C BC #### [facility] [address] [place] [address] Dr. Karin Chamorro MANUAL DIFF REQ NO Normal [facility] Comment on above: Performed By: #### C BC #### [facility] [address] [place] [address] Dr. Karin Chamorro MCH (RBC) [Entitic mass] 30.7 pg Normal 25.9-34.0 [facility] Comment on above: Performed By: #### C BC #### [facility] [address] [place] [address] Dr. Karin Chamorro MCHC (RBC) [Mass/Vol] 34.2 g/dL Normal 29.9-35.2 [facility] Comment on above: Performed By: #### C BC #### [facility] [address] [place] [address] Dr. Karin Chamorro MCV (RBC) [Entitic vol] 89.7 fL Normal 80.0-94.0 [facility] Comment on above: Performed By: #### C BC #### [facility] [address] [place] [address] Dr. Karin Chamorro MONO # 0.5 103/ul Normal 0.3-0.8 [facility] Comment on above: Performed By: #### C BC #### [facility] [address] [place] [address] Dr. Karin Chamorro Monocytes/100 WBC (Bld) 7.4 % Normal 1.7-12.0 [facility] Comment on above: Performed By: #### C BC #### [facility] [address] [place] [address] Dr. Karin Chamorro NEUT # 3.2 103/ul Normal 1.4-6.5 [facility] Comment on above: Performed By: #### C BC #### [facility] [address] [place] [address] Dr. Karin Chamorro Neutrophils/100 WBC (Bld) 45.3 % Normal 43.0-75.0 [facility] Comment on above: Performed By: #### C BC #### [facility] [address] [place] [address] Dr. Karin Chamorro Platelet mean volume (Bld) [Entitic vol] 9.4 fL Critically low 9.5-13.5 [facility] Comment on above: Performed By: #### C BC #### [facility] [address] [place] [address] Dr. Karin Chamorro PLT 306 103/ul Normal 150-450 [facility] Comment on above: Performed By: #### C BC #### [facility] [address] [place] [address] Dr. Karin Chamorro RBC 4.76 106/ul Normal 4.70-6.10 [facility] Comment on above: Performed By: #### C BC #### [facility] [address] [place] [address] Dr. Karin Chamorro WBC 7.0 103/ul Normal 4.0-11.0 [facility] Comment on above: Performed By: #### C BC #### [facility] [address] [address] [address] Karin Chamorro LIPID PROFILEon 01-23-2022 CHOL-HDL RATIO NORM SEE BELOW Normal [facility] Comment on above: Result Comment: 3.3 - 4.4 LOW RISK 4.4 - 7.1 AVERAGE RISK 7.1 - 11.0 MODERATE RISK >11.0 HIGH RISK Performed By: #### L IPID, CMP #### [facility] [address] [address] [address] Karin Chamorro Cholesterol [Mass/Vol] 239 mg/dL Critically high <=200 [facility] Comment on above: Performed By: #### L IPID, CMP #### [facility] [address] [address] [address] Karin Chamorro Cholesterol in HDL [Mass/Vol] 50 mg/dL Normal 40-60 [facility] Comment on above: Performed By: #### L IPID, CMP #### [facility] [address] [place] [address] Dr. Karin Chamorro Cholesterol in LDL [Mass/Vol] 158.8 mg/dL Normal [facility] Comment on above: Performed By: #### L IPID, CMP #### [facility] [address] [place] [address] Dr. Karin Chamorro Cholesterol.total/C holesterol in HDL [Mass ratio] 4.8 {ratio} Normal [facility] Comment on above: Performed By: #### L IPID, CMP #### [facility] [address] [place] [address] Dr. Karin Chamorro HDL NORMAL > or = 60 mg/dl - LO W CARDIOVASCULAR RISK <40 mg/dl - HIGH CARDIOVASCULAR RISK Normal [facility] Comment on above: Performed By: #### L IPID, CMP #### [facility] [address] [place], [place] [id number] Dr. Karin Chamorro LDL CALC NORMAL SEE BELOW Normal [facility] Comment on above: Result Comment: <100 mg/dl OPTIMAL 100 - 129 mg/dl NEAR OR ABOVE OPTIMAL 130 - 159 mg/dl BORDERLINE HIGH 160 - 189 mg/dl HIGH >190 mg/dl VERY HIGH Performed By: #### L IPID, CMP #### [facility] [address] [address] [address] Karin Chamorro Triglyceride [Mass/Vol] 151 mg/dL Critically high <=150 [facility] Comment on above: Performed By: #### L IPID, CMP #### [facility] [address] [address] [address] Karin Chamorro VLDL CALC 30.2 mg/dL Normal [facility] Comment on above: Performed By: #### L IPID, CMP #### [facility] [address] [address] [address] Karin Chamorro PROF 14(COMP METB)on 01-23- 022 Albumin [Mass/Vol] 3.8 g/dL Normal 3.4-5.0 [facility] Comment on above: Performed By: #### L IPID, CMP #### [facility] [address] [place] [address] Dr. Karin Chamorro Albumin/Globulin [Mass ratio] 1.1 {ratio} Normal [facility] Comment on above: Performed By: #### L IPID, CMP #### [facility] [address] [place] [address] Dr. Karin Chamorro ALP [Catalytic activity/Vol] 64 U/L Normal 46-116 [facility] Comment on above: Performed By: #### L IPID, CMP #### [facility] [address] [place] [address] Dr. Karin Chamorro ALT [Catalytic activity/Vol] 44 U/L Normal 16-63 [facility] Comment on above: Performed By: #### L IPID, CMP #### [facility] [address] [place] [address] Dr. Karin Chamorro Anion gap [Moles/Vol] 12.9 mmol/L Normal [facility] Comment on above: Performed By: #### L IPID, CMP #### [facility] [address] [place] [address] Dr. Karin Chamorro AST [Catalytic activity/Vol] 21 U/L Normal 15-37 [facility] Comment on above: Performed By: #### L IPID, CMP #### [facility] [address] [address] [address] Karin Chamorro Bilirubin [Mass/Vol] 0.7 mg/dL Normal 0.2-1.0 [facility] Comment on above: Performed By: #### L IPID, CMP #### [facility] [address] [place] [address] Dr. Karin Chamorro Calcium [Mass/Vol] 8.4 mg/dL Critically low 8.5-10.1 [facility] Comment on above: Performed By: #### L IPID, CMP #### [facility] [address] [place] [address] Dr. Karin Chamorro Chloride [Moles/Vol] 103 mmol/L Normal 98-107 [facility] Comment on above: Performed By: #### L IPID, CMP #### [facility] [address] [place] [address] Dr. Karin Chamorro CO2 [Moles/Vol] 27.9 mmol/L Normal 21.0-32.0 [facility] Comment on above: Performed By: #### L IPID, CMP #### [facility] [address] [place] [address] Dr. Karin Chamorro Creatinine [Mass/Vol] 1.01 mg/dL Normal 0.70-1.30 [facility] Comment on above: Performed By: #### L IPID, CMP #### [facility] [address] [place] [address] Dr. Karin Chamorro EGFR-AF AUSTRIAN >60 Normal >=60 [facility] Comment on above: Performed By: #### L IPID, CMP #### [facility] [address] [place] [address] Dr. Karin Chamorro EGFR-NON AF AUSTRIAN >60 Normal >=60 [facility] Comment on above: Performed By: #### L IPID, CMP #### [facility] [address] [place] [address] Dr. Karin Chamorro Globulin (S) [Mass/Vol] 3.4 g/dL Normal [facility] Comment on above: Performed By: #### L IPID, CMP #### [facility] [address] [address] [address] Karin Chamorro Glucose [Mass/Vol] 86 mg/dL Normal 74-106 [facility] Comment on above: Performed By: #### L IPID, CMP #### [facility] [address] [address] [address] Karin Chamorro Potassium [Moles/Vol] 3.8 mmol/L Normal 3.5-5.1 [facility] Comment on above: Performed By: #### L IPID, CMP #### [facility] [address] [address] [address] Karin Chamorro Protein [Mass/Vol] 7.2 g/dL Normal 6.4-8.2 [facility] Comment on above: Performed By: #### L IPID, CMP #### [facility] [address] [address] [address] Karin Chamorro Sodium [Moles/Vol] 140 mmol/L Normal 136-145 [facility] Comment on above: Performed By: #### L IPID, CMP #### [facility] [address] [address] [address] Karin Chamorro Urea nitrogen [Mass/Vol] 13.0 mg/dL Normal 7.0-18.0 [facility] Comment on above: Performed By: #### L IPID, CMP #### [facility] [address] [address] [address] Karin Chamorro Urea nitrogen/Creatinine [Mass ratio] 12.9 mg/mg Normal [facility] Comment on above: Performed By: #### L IPID, CMP #### [facility] [address] [address] [address] Karin Chamorro Provider Letter11-13-2020 Provider Letter November 13, 2020 November 13, 2020 KAMRON THOMPSON [address] [place] [id number] KAMRON THOMPSON 1970 Dear Kamron, We have been trying to reach you with no success. You have an appointment with Dr. Rangel on 11/20/2020 which will need to be rescheduled since he will be out of the office that day. Please contact the office at the number listed below to get this appointment rescheduled at your earliest convenience. Our phones are answered from 8:00 am to 12:00 pm and 12:30 pm to 4:30 pm Tuesday through Tuesday. Thank you for your prompt attention to this matter. Sincerely, [facility] [address] [place] [address] [facility] 07-22-2020 L -- ---- Specimen: [id number] Received: 07/24/20 Status: EPIThuy Steven Num: [id number] Spec Type: Surgical Subm Dr: Gabe Haley MD Tissues: A Prostate - Needle Biopsy (RT BASE LATERAL) B Prostate - Needle Biopsy (RT BASE MEDIAL) C Prostate - Needle Biopsy (RT MID LATERAL) D Prostate - Needle Biopsy (RT MID MEDIAL) E Prostate - Needle Biopsy (RT APEX LATERAL) F Prostate - Needle Biopsy (RT APEX MEDIAL) G Prostate - Needle Biopsy (LT BASE LATERAL) H Prostate - Needle Biopsy (LT BASE MEDIAL) I Prostate - Needle Biopsy (LT MID LATERAL) J Prostate - Needle Biopsy (LT MID MEDIAL) K Prostate - Needle Biopsy (LT APEX LATERAL) L Prostate - Needle Biopsy (LT APEX MEDIAL) Procedures: HE Stain/24, Gross/Micro / ---- Patient Age/Sex Location Account Attending Physician ---- Kamron Thompson 50/M [facility] [id number] Gabe Haley MD ---- SPEC NUM: [id number] RECD: 07/24/20 STATUS: PRITI FITZGERALD NUM: [id number] JENNIFER: 07/22/[address] [facility] [address]: Gabe Haley MD ENTERED: 07/24/20-1254 [facility] DR: Saira,Lab SPEC TYPE: Surgical DEPT: MAG ELI ORDERED: HE Stain/24, Gross/Micro L4/12 ORDERED: HE Stain/24, Gross/Micro L4/12, Unstained Slide/24 Pathological Diagnosis A. Prostate gland, right base lateral, biopsy: - Benign prostate tissue B. Prostate gland, right base medial, biopsy: - Benign prostate tissue showing mild chronic inflammation C. Prostate gland, right mid lateral, biopsy: - Benign prostate tissue showing mild chronic inflammation D. Prostate gland, right mid medial, biopsy: - Benign prostate tissue showing mild chronic inflammation E. Prostate gland, right apex lateral, biopsy: - Benign prostate tissue showing mild chronic inflammation ---- Specimen: [id number] Received: 07/24/20 Status: PRITI Fitzgerald Num: [id number] Spec Type: Surgical Subm Dr: Gabe Haley MD Tissues: A Prostate - Needle Biopsy (RT BASE LATERAL) B Prostate - Needle Biopsy (RT BASE MEDIAL) C Prostate - Needle Biopsy (RT MID LATERAL) D Prostate - Needle Biopsy (RT MID MEDIAL) E Prostate - Needle Biopsy (RT APEX LATERAL) F Prostate - Needle Biopsy (RT APEX MEDIAL) G Prostate - Needle Biopsy (LT BASE LATERAL) H Prostate - Needle Biopsy (LT BASE MEDIAL) I Prostate - Needle Biopsy (LT MID LATERAL) J Prostate - Needle Biopsy (LT MID MEDIAL) K Prostate - Needle Biopsy (LT APEX LATERAL) L Prostate - Needle Biopsy (LT APEX MEDIAL) Procedures: HE Stain, Gross/Micro ---- Patient: Kamrno Thompson [id number] (Continued) ---- Specimen: [id number] Received: 07/24/20 (Continued) Pathological Diagnosis (Continued) Signed (signature on file) Xi Noriega MD 07/25/201642 ---- Specimen: [id number] Received: 07/24/20 Status: PRITI Fitzgerald Num: [id number] Spec Type: Surgical Subm Dr: Gabe Haley MD Tissues: A Prostate - Needle Biopsy (RT BASE LATERAL) B Prostate - Needle Biopsy (RT BASE MEDIAL) C Prostate - Needle Biopsy (RT MID LATERAL) D Prostate - Needle Biopsy (RT MID MEDIAL) E Prostate - Needle Biopsy (RT APEX LATERAL) F Prostate - Needle Biopsy (RT APEX MEDIAL) G Prostate - Needle Biopsy (LT BASE LATERAL) H Prostate - Needle Biopsy (LT BASE MEDIAL) I Prostate - Needle Biopsy (LT MID LATERAL) J Prostate - Needle Biopsy (LT MID MEDIAL) K Prostate - Needle Biopsy (LT APEX LATERAL) L Prostate - Needle Biopsy (LT APEX MEDIAL) Procedures: HE Stain/, Gross/Micro /12 ---- Patient: Kamron Thompson [id number] (Continued) ---- Specimen: [id number] Received: 07/24/20 (Continued) Pathological Diagnosis (Continued) F. Prostate gland, right apex medial, biopsy: - Benign prostate tissue showing mild chronic inflammation G. Prostate gland, left base lateral, biopsy: - Benign prostate tissue showing mild chronic inflammation H. Prostate gland, left base medial, biopsy: - Benign prostate tissue I. Prostate gland, left mid lateral, biopsy: - Benign prostate tissue showing mild chronic inflammation J. (more content not included)... [facility] Auth for Release of Medical Recordson 06-20-2020 Auth for Release of Medical Records [id number] 0CD:127 [facility] RAD - Pet Scan Reporton 05-13 RAD - Pet Scan Report [id number] CD:127 [facility] Pre-Certification Formon Pre-Certification Form [id number] CD:127 [facility] Ambulatory Clinical Summaryo n 05-22-2020 Ambulatory Clinical Summary {[id number]}CD:[id number] [facility] Formson 05-22-2020 Forms [id number] 0CD:127 [facility] Patient Educationon 05-22-19 Patient Education Oncology Prostate Cancer The prostate is a walnut-sized gland that is involved in the production of semen. It is located below a man's bladder, in front of the rectum. Prostate cancer is the abnormal growth of cells in the prostate gland. What are the causes? The exact cause of this condition is not known. What increases the risk? This condition is more likely to develop in men who: ? Are older than age 65. ? Are -[place]. ? Are obese. ? Have a family history of prostate cancer. ? Have a family history of breast cancer. What are the signs or symptoms? Symptoms of this condition include: ? A need to urinate often. ? Weak or interrupted flow of urine. ? Trouble starting or stopping urination. ? Inability to urinate. ? Pain or burning during urination. ? Painful ejaculation. ? Blood in urine or semen. ? Persistent pain or discomfort in the lower back, lower abdomen, hips, or upper thighs. ? Trouble getting an erection. ? Trouble emptying the bladder all the way. How is this diagnosed? This condition can be diagnosed with: ? A digital rectal exam. For this exam, a health care provider inserts a gloved finger into the rectum to feel the prostate gland. ? A blood test called a prostate-specific antigen (PSA) test. ? An imaging test called transrectal ultrasonography. ? A procedure in which a sample of tissue is taken from the prostate and examined under a microscope (prostate biopsy). Once the condition is diagnosed, tests will be done to determine how far the cancer has spread. This is called staging the cancer. Staging may involve imaging tests, such as: ? A bone scan. ? A CT scan. ? A PET scan. ? An MRI. The stages of prostate cancer are as follows: ? Stage I. At this stage, the cancer is found in the prostate only. The cancer is not visible on imaging tests and it is usually found by accident, such as during a prostate surgery. ? Stage II. At this stage, the cancer is more advanced than it is in stage I, but the cancer has not spread outside the prostate. ? Stage III. At this stage, the cancer has spread beyond the outer layer of the prostate to nearby tissues. The cancer may be found in the seminal vesicles, which are near the bladder and the prostate. ? Stage IV. At this stage, the cancer has spread other parts of the body, such as the lymph nodes, bones, bladder, rectum, liver, or lungs. How is this treated? Treatment for this condition depends on several factors, including the stage of the cancer, your age, personal preferences, and your overall health. Talk with your health care provider about treatment options that are recommended for you. Common treatments include: ? Observation for early stage prostate cancer (active surveillance). This involves having exams, blood tests, and in some cases, more biopsies. For some men, this is the only treatment needed. ? Surgery. Types of surgeries include: ? Open surgery. In this surgery, a larger incision is made to remove the prostate. ? A laparoscopic prostatectomy. This is a surgery to remove the prostate and lymph nodes through several, small incisions. It is often referred to as a minimally invasive surgery. ? A robotic prostatectomy. This is a surgery to remove the prostate and lymph nodes with the help of a robotic arm that is controlled by a computer. ? Orchiectomy. This is a surgery to remove the testicles. ? Cryosurgery. This is a surgery to freeze and destroy cancer cells. ? Radiation treatment. Types of radiation treatment include: ? External beam radiation. This type aims beams of radiation from outside the body at the prostate to destroy cancerous cells. ? Brachytherapy. This type uses radioactive needles, seeds, wires, or tubes that are implanted into the prostate gland. Like external beam radiation, brachytherapy destroys cancerous cells. An advantage is that this type of radiation limits the damage to surrounding tissue and has fewer side effects. ? High-intensity, focused ultrasonography. This treatment destroys cancer cells by delivering high-energy ultrasound waves to the cancerous cells. ? Chemotherapy medicines. This treatment kills cancer cells or stops them from multiplying. ? Hormone treatment. This treatment involves taking medicines that act on one of the male hormones (testosterone): ? By stopping your body from producing testosterone. ? By blocking testosterone from reaching cancer cells. Follow these instructions at home: ? Take qzqg-fhj-yxprdof and prescription medicines only as told by your health care provider. ? Maintain a healthy diet. ? Get plenty of sleep. ? Consider joining a support group for men who have prostate cancer. Meeting with a support group may help you learn to cope with the stress of having cancer. ? Keep all follow-up visits as told by your health care provider. This is important. ? If you have to go to the hospital, notify your cancer specialis (more content not included)... [facility] Reminderson 05-22-2020 Reminders - From: Mirlande Desai To: [facility] - Clinical; Mirlande Desai; Sent: 05/22/2020 09:29:37 EST Show up: 05/31/2020 09:29:00 EST Subject: bone scan Reminder/Recall patient having whole body bone scan done 05/29/20 @ [facility]. show DLS results and call pt patient has 6m appt scheduled Normal [facility] Urology Office/Clinic Noteon 05-22-2020 Urology Office/Clinic Note Chief Complaint disscuss bx This patient is a 49-year-old male with a history of a adenocarcinoma of the prostate identified following a transrectal ultrasound of the prostate with ultrasound-guided needle biopsy by Dr. Glaser in 2019. Patient had a Nova's 3+3 equal 6 adenocarcinoma. He is a stage T1c. His prebiopsy PSA value was 6.5 ng/mL. He has a MRI for review today and is here today to help determine what the neck step for management might be. He is already chosen active surveillance and has been doing this for the last year. HPI Staff TRUS/BX done 05/22/[address] Glaser and was positive for Ra 6 (3+3). Pt is here to discuss MRI results that was done 04/09/20. Pt is currently on ACTIVE SURVEILANCE with a Nova 6(3+3). Recent PSA was done 03/17/20 and was at 6.65. Pt is currently on Tamsulosin 0.4mg qd, for about a year. PVR 90ml Pt is not feeling like he is emptying all the time ever since being on tamsulosin therapy. He states he has a weak stream with intermittent stream and has to strain to finish voiding. Dysuria: no pain or burning Incomplete bladder emptying: not always emptying Hematuria: denies any blood in urine, UA is clear Frequency: normal 2-3 hours in between Urgency: not since starting tamsulosin Nocturia: 1x Stream: weak urine stream, no hesitation, intermittent stream, pt states that he has to strain to finish voiding Leaking: no Post void dripping: no Wearing pads/ Depends: none Urge incontinence: none Stress incontinence: none Incontinence without Sensory Awareness: none Abdominal pain: no pain Flank pain: no pain Sexual complaints: no blood in semen History of Present Illness Reviewed urine, pvr, pSA, and prostate MRI results. There have been no associated fever, chills, flank pain or blood in the urine. Pt. denies any pain/burning with urination at this time. Review of Systems PHQ Score Initial Depression Screen Score: 0 ROS - Provider Constitutional: denies weight loss, denies hot flashes. Eyes: denies eye problems. Gastrointestinal: denies nausea, denies vomiting. Cardiovascular: denies chest pain or angina. Integumentary: no dryness Musculoskeletal: denies musculoskeletal symptoms. ENMT: denies otolaryngeal symptoms. Respiratory: no shortness of breath. Heme/Lymph: denies easy bleeding tendency, denies easy bruising tendency. Psychiatric: no confusion, no anxiety. Genitourinary: denies dysuria, denies hematuria, denies discharge, denies urinary frequency, denies urinary hesitancy, denies nocturia, denies incontinence, denies genital sores, denies decreased libido, and denies erectile dysfunction. Physical Exam Vitals & Measurements HR: 58(Peripheral) RR: 18 BP: 172/102 HT: 178 cm HT: 178.0 cm WT: 117 kg WT: 117.0 kg BMI: 36.93 General Appearance: alert, no distress, well nourished, well developed male. Genitourinary: normal scrotum, normal testes, normal urethra, normal epididymis, normal vas deferens/spermatic cord. Flank Pain: none. Bladder: nonpalpable. Assessment/Plan I had a lengthy discussion over 40 minutes with this patient about his diagnosis, treatment options, potential complications and studies that we may do in the future to assess reviewed and manage his prostate cancer. He is interested in active surveillance primarily because of concerns about erectile dysfunction with any form of treatment. He does have signs and symptoms of prostatic hyperplasia with some bladder outlet obstruction but is been treated with tamsulosin 0.4 mg daily but states he does better when he takes it twice a day. A new prescription for twice a day tamsulosin will be sent to the drugstore. Patient would like to consider and continue active surveillance and will agree to this using PSAs on a every 6 month basis. We did discuss the possibility that prostate cancer may spread despite the fact that the PSA does not rise quickly. There is a risk associated with active surveillance and is willing to take it at this point. We talked about radiation therapy, surgery, hormone management and combination therapies. At present he wants to continue active surveillance and he understands the risk associated with this. We will plan to see him back in the office with another PSA blood test in 6 months. Patient will be getting a bone scan to evaluate the area in his iliac bone on the left side near the sacroiliac joint. Contact office a week or 2 after the x-ray is completed and will review the results with him at that time. We will get another PSA in 6 months. Contact office if any other problems. 1. Prostate cancer (C61: Malignant neoplasm of prostate) Previous DDM pt. is currently on ACTIVE SURVEILLANCE. Most current PSA drawn on 03/17/2020 w/ a level of 6.65. S/p TRUS/Bx 05/22/2019, G6 (3+3) x1. S/p prostate MRI done on 04/09/2020 shows 1.2cm rt. mid posterolateral peripheral zone PI-RADS 3 lesion. The MRI report was reviewed with the patient in detail today. I discussed with the patient al (more content not included)... [facility] Comment on above: Result Comment: Elec tronically Signed By: Juan Carlos Sethi MD, Sebastian Kimbrough\.br\Date and Time Signed: 05/22/20 09:39 EST\.br\Electronically Co-Signed By: Shaniqua Blanco MA\.br\Date and Time Co-Signed: 05/22/20 09:19 EST\.br\Electronically Co-Signed By: PASQUALE GARCÍA, Tyrel Burk\.br\Date and Time Co-Signed: 05/23/20 10:59 EST RAD - MRI Reporton RAD - MRI Report [id number] 0CD:127 [facility] Pre-Authorization for Medica l Treatmenton 04-29-2020 Pre-Authorization for Medical Treatment [id number]. 00CD:127 [facility] Physician Orderon 04-24-2020 Physician Order [id number]#1.0 0CD:127 [facility] Ambulatory Clinical Summaryo n 04-23-2020 Ambulatory Clinical Summary {[id number] 1-1d}[id number] [facility] Physician Orderon 04-23-2020 Physician Order [id number] 0CD:127 [facility] Urology Office/Clinic Noteon 04-23-2020 Urology Office/Clinic Note Chief Complaint Pt. here to go over MRI results 04/09/2020. HPI Staff Pt. here to go over FUNMI results. S/P TRUS/BX done 05/25/2019. Last PSA was 6.65 done 03/17/2020. Pervious DX: prostate cancer,BPH w/LUTS, nocturia, weak stream and family history of prostate cancer. MRI done 04/09/2020. Pain with urination:No Blood in urine:No Incomplete bladder emptying:No Frequency:No Urgency:No Nocturia:No 1x Hesitancy:Mild Pt. states occasionally Stream:Moderate Pt. states having a weak stream Stream starts and stops:Mild Pt. states occasionally Post-void dribbling:No Leaking before getting to the restroom:No Urinary incontinence without sensory awareness:No Temporarily unable to restrain urination with body movement:No Flank/Back pain:No Abdominal pain:No Review of Systems General: Fevers Denies _ Weight LossDenies __ Weaknessdenies_ _ Skin: Rash Denies Non-healed Skin WoundDenies Blood: BruisingDenies Bleeding Denies AnemiaDenies Eyes: Eye Problems Denies Ears: Recent Hearing problemsDenies Respiratory: Cough Denies Coughing Blood Denies Shortness of Breath Denies Respiratory InfectionsDenies Loud Snoring Denies Cardiovascular: Chest Pain Denies Sensation of Irregular Heart Beat Denies Intestinal Constipation Denies DiarrheaDenies Rectal Bleeding/Blood in Stool Denies HemorrhoidsDenies IndigestionDenies NauseaDenies VomitingDenies Genito-Urinary Have you ever seen blood in your urineDenies Have you ever been told there was blood in your urineDenies Penile Discharge Denies Penile BleedingDenies Leaking urine(incontinence) Denies Flank or Kidney painDenies Pain relating to your bladder filling or emptyingDenies Burning with urinationDenies Urinary tract infectionDenies Kidney stoneDenies Sexual difficultiesDenies Muscle-skeletal: Joint pain Denies Back pain Denies Muscle CrampsDenies Nervous System: HeadachesDenies SeizuresDenies Blackouts Denies NumbnessDenies Weakness in a certain area of your bodyDenies Tingling in a certain area of your bodyDenies Psychological Confusion Denies AnxietyDenies Other Free text:Denies _ Physical Exam Vitals & Measurements HR: 69(Peripheral) RR: 16 BP: 153/93 HT: 178 cm HT: 178.0 cm WT: 117 kg WT: 117.0 kg BMI: 36.93 General Appearance: alert, no distress, well nourished,Well groomed Musculoskeletal GaitNormal No trouble getting up from chair NeckSupple Novisble or palpable masses Eyes: EOMintactlooks at ca Chest: Lungs CTA, respirations non labored. Cardiovascular: regular rate and rhythm. Abdomen: soft, non distended, no tenderness, no mass or organomegaly, no ventral hernia. Genitourinary: scrotumno rashes or skin lesions No Testes masses, NoScrotal masses Normalurethral meatus Vas deferensNot appreciated Penile Urethra palpably normal Glans Circumcised Without Rash AnusNoexternal hemrrhoids Normalrectal tone Prostate: normal prostate, estimated weight 35 gms, no nodules appreciated _ CVAT: none Lymph Nodes: unremarkable No enlarged inguinal lymph nodes appreciated Skin: warm, dry, no bruising. Neuropsychiatric: AO X 3 mood pleasant. Assessment/Plan 1. Urinary urgency (R39.15: Urgency of urination) Ordered: Urnls Dip Stick Auto w/o Microscopy POC 18467 2. Prostate cancer (C61: Malignant neoplasm of prostate) 3. Prostate mass (N42.89: Other specified disorders of prostate) I recommended a MRI fusion biopsy for this patient. I explained that his young age made me prefer a more agreessive approach to detect signifincant cancer, but that the side effects of prostate cancer are also greater impact at a young age. I spent 25 minutes with this patient over 50% of which was spent counseling and coordinating care. R/B/A of repeat biopsy discussed. I explained the findings from the MRI, the need for true fusion and the role and timing of treatment that would vary widely with the results. I explained that he presently meets criteria for active surveillance other than his young age which plays to the long run in time with which this tumor would have a chance to grow. Follow-up No qualifying data available Problem List/Past Medical History Ongoing BPH with urinary obstruction Family history of prostate cancer Intermittent urinary stream Nocturia Obesity (BMI 35.0-39.9 without comorbidity) Prostate cancer PSA elevation Urinary urgency Weak urinary stream Historical No qualifying data Procedure/Surgical History prostate bx (05/22/2019), Robotic assisted herniorrhaphy with 12 cm Symbotex mesh (08/25/2015), None. Medications tamsulosin 0.4 mg Cap, 0.4 mg= 1 cap(s), Oral, Daily, 11 refills, Still taking, not as prescribed: when he remembers Allergies No Known Allergies Social History Alcohol - Low Risk, 08/18/2015 Substance Abuse - Denies Substance Abuse, 08/18/2015 Tobacco - Denies Tobacco Use, 08/18/2015 Never (less than 100 in lifetime) Tobacco Use:., 04/23/2020 Never (less than 100 (more content not included)... [facility] Comment on above: Result Comment: Elec tronically Signed By: Alfredito GARCÍA, Román Lee\.br\Date and Time Signed: 04/23/20 12:28 EST Pre-Certification Formon Pre-Certification Form [id number] 0CD:127 [facility] Ambulatory Clinical Summaryo n 03-21-2020 Ambulatory Clinical Summary {[id number] [id number]}[id number] [facility] Patient Educationon 03-19-20 20 Patient Education Family Medicine Prostate Cancer The prostate is a male gland that is involved in the production of semen. It is located between the bladder and the rectum. The normal prostate gland is the size of a walnut and surrounds the tube that carries urine from the bladder (urethra ). Prostate cancer is the abnormal growth of cells in the gland. Next to skin cancer, prostatic cancer is the most common cancer in men. One out of 6 men will be diagnosed with this in their lifetime. Although the number with this disease is large, the majority of men diagnosed with prostate cancer do not from it. CAUSES Age is the biggest risk factor for this disease. Growing older increases the chances of developing prostate cancer. The second most common risk factor is genetics. That means if a man has a father or brother with prostate cancer then he has twice the risk of developing prostate cancer. Estimations are that 5% to 10% of all prostate cancer cases are hereditary. SYMPTOMS Most older men suffer from an enlarged prostate gland (benign prostatic hypertrophy, BPH ). Because prostate cancer occurs in this population, the symptoms that a man has with prostate cancer are almost always due to the enlarged prostate gland and not directly caused by the cancer. With the exception of pain in the back, hips, or thighs, the symptoms listed below are usually caused by the enlarged prostate gland and do not indicate prostate cancer. Prostate cancer is usually found because the caregiver is evaluating symptoms or because a blood test indicates prostate cancer without the symptoms. ? Frequent urination. ? Difficulty starting or stopping urination. ? Inability to urinate. ? Weak or interrupted flow of urine. ? Painful or burning urination. ? Painful ejaculation. ? Blood in urine or semen. ? Persistent pain in the lower back, hips, or upper thighs. Symptoms actually caused by the cancer only occur in extremely advanced cases. Therefore, regular exams are especially important. DIAGNOSIS Screening Consult with your caregiver about prostate cancer screening. Several types of screening tests are available: ? Prostate Specific Antigen (PSA) blood test. Healthy men should no longer receive PSA blood tests as part of routine cancer screening. ? Digital rectal examination (KVNG). Your caregiver advances a gloved, lubricated finger into the rectum and feels the part of the prostate that lies next to it. A KVNG is not recommended as a routine screening test for cancer of the prostate. ? Transrectal ultrasound. This test uses low volume, high frequency sound waves to produce an electrical picture of internal organs on a screen. For prostate screening, the device used to produce the sound waves must be placed inside the rectum so it is close to the prostate gland. This test is not usually painful. Testing If there is concern about prostate cancer, your caregiver may ask for tests in addition to those listed above. These could include: ? X-rays. ? CT scan. ? MRI. ? Blood tests other than PSA. ? Urine tests. The only way to make a final diagnosis of prostatic cancer is to get a tissue sample (biopsy ). A biopsy is done by putting a needle into the prostate. It is guided into position by an ultrasound probe that has been placed into the rectum. Usually 8 to 12 samples are taken. This test is not usually done with any anesthesia. This test is not particularly painful. Most people who undergo a biopsy find that the first few biopsies are hardly felt at all. As the number of biopsy specimens are increased, a slight burning sensation is described. The specimens are then sent to a specialist who looks at tissues and cells (a pathologist ). The pathologist will look at the sample under a microscope to determine if the tissue is cancerous. If the tissue is cancerous, the cancer is also a Nova score by the pathologist. This is a system of grading prostate cancer tissue based on how it looks under a microscope. The score indicates how likely it is that a tumor will spread. The pathologist looks for two patterns and gives a number to each pattern. The first pattern represents the majority of the tumor. The second pattern represents the pattern of the smaller amount of the tumor. When you look at the report, you will see a number such as Nova 3 + 4. These two patterns are added together to give a total score. In this example, the total Ra score is 7. This means that the tumor is mostly low-grade with some high-grade tumor. A low total Nova score means the cancer tissue looks more like normal prostate tissue and the tumor is less likely to spread. A high Ra score means the cancer tissue is very different from normal. This high score means the tumor is more likely to spread. STAGING If a diagnosis of cancer has been established by the biopsy, the next step is to stage the cancer. This means it is put in a category based on how far the cancer has s (more content not included)... Normal [facility] Physician Orderon 03-19-2020 Physician Order [id number] 0CD:127 Normal [facility] Urology Office/Clinic Noteon 03-19-2020 Urology Office/Clinic Note Chief Complaint 3 month with PSA HPI Staff 3 month with PSA. Pervious DX: prostates cancer, weak stream and BPH with LUTS. PSA 6.65 done 03/17/2020. TRUS/BX done 05/25/2019 and was positive for Ra score of 6(3+3) 1 core. Tamsulosin 0.4mg qd. Pain with urination:No Blood in urine:No Incomplete bladder emptying:No Frequency:No Urgency:Mild Nocturia:Mild 2x's Stream:Moderate Pt. states weak stream. Post-void dribbling:No Leaking before getting to the restroom:No Urinary incontinence without sensory awareness:No Temporarily unable to restrain urination with body movement:No Flank/Back pain:No Abdominal pain:No History of Present Illness Reviewed UA and last encounter. There have been no associated fever, chills, flank pain or blood in the urine. Pt. denies any pain/burning with urination at this time. Review of Systems General: Fevers Denies, Weight Loss Denies, Weakness Denies Skin: Rash Denies, Non-healed Skin Wound Denies Blood: Bruising Denies, Bleeding Denies, Anemia Denies Eyes: Eye Problems Denies Ears: Recent Hearing Problems Denies Respiratory: Cough Denies, Coughing Blood Denies, Shortness of Breath Denies, Respiratory Infections Denies, Loud Snoring Denies Cardiovascular: Chest Pain Denies, Sensation of Irregular Heart Beat Denies Intestinal: Constipation Denies, Diarrhea Denies, Rectal Bleeding/Blood in Stool Denies Hemorrhoids Denies, Indigestion Denies, Nausea Denies, Vomiting Denies Genito-Urinary: Have you ever seen blood in your urine Denies, Have you ever been told there was blood in your urine Denies, Penile Discharge Denies, Penile Bleeding Denies, Leaking Urine (incontinence) Denies, Flank or Kidney Pain Denies, Pain relating to your bladder filling or emptying Denies, Burning with Urination Denies, Urinary Tract Infection Denies Kidney Stone Denies, Sexual Difficulties Denies Muscle-Skeletal: Joint Pain Denies, Back Pain Denies, Muscle Cramps Denies Nervous System: Headaches Denies, Seizures Denies, Blackouts Denies, Numbness Denies Weakness in a certain area of your body Denies, Tingling in a certain area of your body Denies Psychological: Confusion Denies, Anxiety Denies Other Free Text: Physical Exam Vitals & Measurements HT: 178.0 cm HT: 178 cm WT: 117.0 kg WT: 117 kg BMI: 36.93 General Appearance: alert, no distress, well nourished, well developed male. Flank Pain: none. Bladder: nonpalpable. Assessment/Plan 1. Prostate cancer (C61: Malignant neoplasm of prostate) ACTIVE SURVEILLANCE. S/p TRUS/Bx 05/22/2019, G6(3+3)x1. Pt. has D'Vahid low risk or NCCN very low risk prostate cancer GG1 in 8% of a single of 12 cores for his PSAD = 6.5/53clinical T1 c prostate cancer. Current PSA drawn on 03/17/2020 w/ a relatively stable level of 6.65. Will schedule TRUS of Prostate with Biopsy. The procedural risks, benefits, details, and treatment alternatives have been discussed with the patient. These include minimal to severe bleeding, infection, blood in the semen, inability to urinate, and severe infection requiring hospitalization and IV antibiotics, among others. Full informed consent has been obtained. Will order Mac anesthesia. Will also schedule pt. for MRI of prostate to. The patient chooses to proceed with this study. Ordered: MRI Pelvis (Soft Tissue) w/ + w/o contrast Urology Procedure Order 2. BPH with urinary obstruction (N40.1: Benign prostatic hyperplasia with lower urinary tract symptoms) Pt. is taking Flomax 0.4mg qd. Pt. to continue med. as directed and to call when refills are needed. Ordered: Urnls Dip Stick Auto w/o Microscopy POC [id number] Urology Procedure Order 3. Nocturia (R35.1: Nocturia) 2x/night. Ordered: Urology Procedure Order 4. Weak urinary stream (R39.12: Poor urinary stream) Moderate. Ordered: Urology Procedure Order 5. Family history of prostate cancer (Z80.42: Family history of malignant neoplasm of prostate) Grandfather. Ordered: Urology Procedure Order I have reviewed the previous health record information and history for this pt. from Dr. Glaser. Follow-up With When Contact Information Román Glaser MD [address] [place] [address]- [phone] Additional Instructions: Patient Education Prostate Cancer I, Shaniqua Blanco , personally scribed for Dr. Glaser on 03/19/2020 11:09:53. . Documentation recorded by the scribe, _, accurately reflects the services(s) I performed and decisions made by me. Authenticated by Dr. Glaser on 03/19/2020 11:10:45. Problem List/Past Medical History Ongoing BPH with urinary obstruction Family history of prostate cancer Intermittent urinary stream Nocturia Obesity (BMI 35.0-39.9 without comorbidity) Prostate cancer PSA elevation Urinary urgency Weak urinary stream Historical No qualifying data Procedure/Surgical History prostate bx (05/22/2019), Shivam (more content not included)... Normal [facility] Comment on above: Result Comment: Elec tronically Signed By: Román Glaser MD\.br\Date and Time Signed: 03/19/20 11:11 EST\.br\Electronically Co-Signed By: Shaniqua Blanco MA\.br\Date and Time Co-Signed: 03/19/20 11:10 EST Lab Reportson 03-18-2020 Lab Reports [id number] 0CD:127 Normal [facility] Ambulatory Clinical Summaryo n 12-26-2019 Ambulatory Clinical Summary {[id number]}CD:[id number] Normal [facility] Patient Educationon 12-26-19 Patient Education Family Medicine YOu have prostate cancer. It is very low risk prostate cancer. I would recommend active surveillance but you are also having trouble emptying your bladder. This may mean that you decide to get surgery for your prostate cancer. Voiding complaints are variable following cancer surgery with some patient's reporting incontinence(about 1/5 by about 6 months after surgery). There is also a risk of impotence with prostate cancer surgery. An alternative would be a medication or surgery for urinary complaints. While this may improve your IPSS (the survey you filled out) it would not treat the cancer. In fact the cancer effects in cancer patient's are unstudied but felt to likely be minimal. Because of your young age I recommended surveillance till fertility and perhaps even erectile function become less of a issue and the considering having the prostate removed with the aid of a DaVinci robot. Please continue your tamsulosin. Prostate Cancer The prostate is a male gland that is involved in the production of semen. It is located between the bladder and the rectum. The normal prostate gland is the size of a walnut and surrounds the tube that carries urine from the bladder (urethra ). Prostate cancer is the abnormal growth of cells in the gland. Next to skin cancer, prostatic cancer is the most common cancer in men. One out of 6 men will be diagnosed with this in their lifetime. Although the number with this disease is large, the majority of men diagnosed with prostate cancer do not from it. CAUSES Age is the biggest risk factor for this disease. Growing older increases the chances of developing prostate cancer. The second most common risk factor is genetics. That means if a man has a father or brother with prostate cancer then he has twice the risk of developing prostate cancer. Estimations are that 5% to 10% of all prostate cancer cases are hereditary. SYMPTOMS Most older men suffer from an enlarged prostate gland (benign prostatic hypertrophy, BPH ). Because prostate cancer occurs in this population, the symptoms that a man has with prostate cancer are almost always due to the enlarged prostate gland and not directly caused by the cancer. With the exception of pain in the back, hips, or thighs, the symptoms listed below are usually caused by the enlarged prostate gland and do not indicate prostate cancer. Prostate cancer is usually found because the caregiver is evaluating symptoms or because a blood test indicates prostate cancer without the symptoms. ? Frequent urination. ? Difficulty starting or stopping urination. ? Inability to urinate. ? Weak or interrupted flow of urine. ? Painful or burning urination. ? Painful ejaculation. ? Blood in urine or semen. ? Persistent pain in the lower back, hips, or upper thighs. Symptoms actually caused by the cancer only occur in extremely advanced cases. Therefore, regular exams are especially important. DIAGNOSIS Screening Consult with your caregiver about prostate cancer screening. Several types of screening tests are available: ? Prostate Specific Antigen (PSA) blood test. Healthy men should no longer receive PSA blood tests as part of routine cancer screening. ? Digital rectal examination (KVNG). Your caregiver advances a gloved, lubricated finger into the rectum and feels the part of the prostate that lies next to it. A KVNG is not recommended as a routine screening test for cancer of the prostate. ? Transrectal ultrasound. This test uses low volume, high frequency sound waves to produce an electrical picture of internal organs on a screen. For prostate screening, the device used to produce the sound waves must be placed inside the rectum so it is close to the prostate gland. This test is not usually painful. Testing If there is concern about prostate cancer, your caregiver may ask for tests in addition to those listed above. These could include: ? X-rays. ? CT scan. ? MRI. ? Blood tests other than PSA. ? Urine tests. The only way to make a final diagnosis of prostatic cancer is to get a tissue sample (biopsy ). A biopsy is done by putting a needle into the prostate. It is guided into position by an ultrasound probe that has been placed into the rectum. Usually 8 to 12 samples are taken. This test is not usually done with any anesthesia. This test is not particularly painful. Most people who undergo a biopsy find that the first few biopsies are hardly felt at all. As the number of biopsy specimens are increased, a slight burning sensation is described. The specimens are then sent to a specialist who looks at tissues and cells (a pathologist ). The pathologist will look at the sample under a microscope to determine if the tissue is cancerous. If the tissue is cancerous, the cancer is also a Ra score by the pathologist. This is a system of grading prostate cancer tissue based on how it looks under a microscope. The score indicates how likely (more content not included)... Normal [facility] Screenson 12-26-2019 Screens [id number] 0CD:127 Normal [facility] Urology Office/Clinic Noteon 12-26-2019 Urology Office/Clinic Note Chief Complaint 6 month with PSA HPI Staff ACTIVE SURVEILENCE 6 month f/u with PSA. Pt had PSA done at [facility] on 09-07-19 and was at 6.3. Pt had a TRUS/BX 05/25/19 and was positive for a Nova score of 6(3+3) 1 core. Tamsulosin 0.4mg qd is helping urgency and frequency but is still having to strain to void at times. Pt states his urine stream is weak. Would like to know if there is any other medication he could try. PVR 225ml Dysuria: no pain or burning Incomplete bladder emptying: emptying well otherwise Hematuria: Denies any blood in urine, UA is clear. Frequency: improved Urgency: improved Nocturia: 1x Stream: weak stream and has to strain to finish, no hesitation, intermittent stream Urge incontinence: no issues Stress incontinence: issues Incontinence without Sensory Awareness: no issues Abdominal pain: no History of Present Illness Reviewed UA and PSA. There have been no associated fever, chills, flank pain or blood in the urine. Pt. denies any pain/burning with urination at this time. Review of Systems PHQ Score Initial Depression Screen Score: 0 General: Fevers Denies, Weight Loss Denies, Weakness Denies Skin: Rash Denies, Non-healed Skin Wound Denies Blood: Bruising Denies, Bleeding Denies, Anemia Denies Eyes: Eye Problems Denies Ears: Recent Hearing Problems Denies Respiratory: Cough Denies, Coughing Blood Denies, Shortness of Breath Denies, Respiratory Infections Denies, Loud Snoring Denies Cardiovascular: Chest Pain Denies, Sensation of Irregular Heart Beat Denies Intestinal: Constipation Denies, Diarrhea Denies, Rectal Bleeding/Blood in Stool Denies Hemorrhoids Denies, Indigestion Denies, Nausea Denies, Vomiting Denies Genito-Urinary: Have you ever seen blood in your urine Denies, Have you ever been told there was blood in your urine Denies, Penile Discharge Denies, Penile Bleeding Denies, Leaking Urine (incontinence) Denies, Flank or Kidney Pain Denies, Pain relating to your bladder filling or emptying Denies, Burning with Urination Denies, Urinary Tract Infection Denies Kidney Stone Denies, Sexual Difficulties Denies Muscle-Skeletal: Joint Pain Denies, Back Pain Denies, Muscle Cramps Denies Nervous System: Headaches Denies, Seizures Denies, Blackouts Denies, Numbness Denies Weakness in a certain area of your body Denies, Tingling in a certain area of your body Denies Psychological: Confusion Denies, Anxiety Denies Other Free Text: Physical Exam Vitals & Measurements HR: 72(Peripheral) RR: 18 BP: 151/92 HT: 178.0 cm HT: 178 cm WT: 117.0 kg WT: 117 kg BMI: 36.93 General Appearance: alert, no distress, well nourished, well developed male. Flank Pain: none. Bladder: nonpalpable. Assessment/Plan 1. Prostate cancer (C61: Malignant neoplasm of prostate) ACTIVE SURVEILLANCE. S/p TRUS/Bx 05/22/2019, G6(3+3)x1. Pt. has D'Vahid low risk or NCCN very low risk prostate cancer GG1 in 8% of a single of 12 cores for his PSAD = 6.5/53 clinical T1 c prostate cancer. Last PSA done 08/2019 w/ a result of 6.3 compared to 6.5 on 04/2019. All questions/concerns were discussed. Pt. to call the office if heencounters any issues prior. Pt. acknowledges understanding. F/u in 3mos. w/ PSA. 2. Weak urinary stream (R39.12: Poor urinary stream) Weak stream w/ straining to urinate. PVR today - 225mL. IPSS score today - 9, QOL - 1. Pt. to start timed voids q2-3hr during waking hours whether the urge to void is present or not. 3. BPH with urinary obstruction (N40.1: Benign prostatic hyperplasia with lower urinary tract symptoms) Pt. is taking Tamsulosin 0.4mg qd. Pt. to continue meds. as directed and to call when refills are needed. I have reviewed the previous health record information and history for this pt. from Dr. Glaser. 49 YO male with very low risk prostate cancer on active surveillance. I explained the options for his incomplete bladder emptying. At this time he declined a Rezum Urolift TURP or 5ari and I think this is reasonable. He was agreeable to timed voiding. He declined a prostate cancer surgery but was agreeable to a repeat PSA in March and discussion then about the role and timing of a MRI for his 53 cc prostate with 225 PVR. I explained the differing side effect profiles between prostate cancer surgery and BPH surgery, at this time I did not suspect that his constrictive flow was based on prostate cancer but admited that the peripheral zone is what is sampled in biopsies not the periurethra central or transition zone. About 20% of prostate cancers historically occur in these areas, predominantly the transition zone. It was for this reason that I favored the MRI. I was surprised based on his IPPS score of being only 9 and perhaps even more so his QOL score of pleased. I explained it would be hard to improve on pleased. I explained that I would like him to keep a close eye on PSA. I explained the 30% progression to treatment rate or there abouts(20 to 40) in active surveillance coho (more content not included)... Normal [facility] Comment on above: Result Comment: Elec tronically Signed By: Alfredito GARCÍA, Román Lee\.br\Date and Time Signed: 12/26/19 12:08 EDT\.br\Electronically Co-Signed By: Shaniqua Blanco MA\.br\Date and Time Co-Signed: 12/26/19 12:01 EDT Social History Date Type Detail Facility Start: 11-12-2022 Alcohol intake Ex-drinker (finding) [facility] Start: 1970 Sex Assigned At Not on file C [facility] Tobacco smoking status [facility] Unknown if ever smoked [facility] Sex Assigned At Sex Assigned At Bir th [facility] Other Tobacco smoking status [facility] Tobacco smoking consumption unknown [facility] Vital Signs Date Time Vital Sign Value Performing Clinician Facility 04-27-2023 15:30-0500 Body height 182.88 cm Catarino Ball Other [facility] Other 04-27-2023 15:30-0500 Body mass index (BMI) [Ratio] 36.83 kg/m2 Catarino Ball Other [facility] Other 04-27-2023 15:30-0500 Body weight 123.2 kg Catarino Ball Other [facility] Other 04-27-2023 15:30-0500 Diastolic blood pressure 78 mm[Hg] Catarino Ball Other [facility] Other 04-27-2023 15:30-0500 Respiratory rate 12 /min Catarino Ball Other [facility] Other 04-27-2023 15:30-0500 Systolic blood pressure 128 mm[Hg] Catarino Ball Other [facility] Other 01-26-2023 15:30-0400 Body height 182.88 cm Catarino Ball Other [facility] Other 01-26-2023 15:30-0400 Body mass index (BMI) [Ratio] 34.31 kg/m2 Catarino Ball Other [facility] Other 01-26-2023 15:30-0400 Body weight 114.76 kg Catarino Ball Other [facility] Other 01-26-2023 15:30-0400 Diastolic blood pressure 100 mm[Hg] Catarino Ball Other [facility] Other 01-26-2023 15:30-0400 Respiratory rate 12 /min Catarino Ball Other [facility] Other 01-26-2023 15:30-0400 Systolic blood pressure 156 mm[Hg] Catarino Ball Other [facility] Other 11-12-2022 09:45-0400 SaO2% (BldA) [Mass fraction] 98 % Chastity Orlop DO Work Phone: [employer] 11-12-2022 09:44-0400 Body weight 108.86 kg Chastity Orlop DO Work Phone: [employer] 11-12-2022 09:42-0400 Body temperature 98.71 [degF] Chastity Orlop DO Work Phone: [employer] 11-12-2022 09:42-0400 Diastolic blood pressure 94 mm[Hg] Chastity Orlop DO Work Phone: [employer] 11-12-2022 09:42-0400 Heart rate 70 /min Chastity Orlop DO Work Phone: [employer] 11-12-2022 09:42-0400 Respiratory rate 16 /min Chastity Orlop DO Work Phone: [employer] 11-12-2022 09:42-0400 Systolic blood pressure 173 mm[Hg] Chastity Orlop DO Work Phone: [employer] 07-28-2022 16:30-0400 Body height 182.88 cm Catarino Ball Other [facility] Other 07-28-2022 16:30-0400 Body mass index (BMI) [Ratio] 34.82 kg/m2 Catarino Ball Other [facility] Other 07-28-2022 16:30-0400 Body weight 116.48 kg Catarino [employer] Other [facility] Other 07-28-2022 16:30-0400 Diastolic blood pressure 80 mm[Hg] Catarino [employer] Other [facility] Other 07-28-2022 16:30-0400 Respiratory rate 12 /min Catarino [employer] Other [facility] Other 07-28-2022 16:30-0400 Systolic blood pressure 130 mm[Hg] [employer] Other [facility] Other Clinical Notes 07-28-2022 to 05-20-2023 Note Date & Type Note Facility 05-20-2023 Evaluation note Encounter Date Diagnosis Assessment Notes May, Primary hypertension (ICD-10 - I10) [facility] Other 01-17-2024 Evaluation note* Encounter Date Diagnosis Assessment Notes Treatment Notes Treatment Clinical Notes Apr, Primary hypertension (ICD-10 - I10) This patient is instructed to consume a healthy, low-fat, low-salt diet. They are also encouraged to continue exercise to achieve/maintain a normal BMI. Apr, Other obesity due to excess calories (ICD-10 - E66.09) This patient has been instructed on a low-fat, high-fiber diet. They are instructed to reduce calories, portion sizes and snacks. It is recommended that they exercise for 30 minutes, 3-5 times weekly. Discussed use of medication. He has tried Mounjaro in the past w/ benefit. He has a new coupon and is requesting a new Rx Apr, Body mass index [BMI] 34.0-34.9, adult (ICD-10 - Z68.34) [facility] Other [id number] Note [id number]#1.00[facility]11-17-2023 [id number]#1.00[facility] 02-24-2023 [id number]#1.00[facility]11-15-2023 [id number]#1.00[facility]11-14-2023 [facility] SURGERY Clinical Discharge Summary PERSON INFORMATION Name KAMRON THOMPSON Age 52 Years 1970 Sex MALE Language Setswana PCP Catarino Condon Marital Status Med Service Ambulatory Surgery Acct# Arrival 02/22/2023 06:31:02 Visit Reason SURGERY- CYSTO, GREENLIGHT Acuity LOS 039 21:47 Address: [address] [place] [address] Comment: PROVIDER INFORMATION VITALS INFORMATION Vital Sign Triage Latest Temp Oral Temp Temporal Temp Intravascular Temp Axillary Temp Rectal 02 Sat 99 % 100 % Respiratory Rate Peripheral Pulse Rate Apical Heart Rate Blood Pressure / 96 mmHg / 92 mmHg Comment: MEDICAL INFORMATION Allergy Info: No Known Medication Allergies Prescriptions Given: cephalexin (cephalexin 500 mg oral capsule) 1 cap(s) Oral Every 12 hours scheduled time for 3 Days.Refills: 0. olmesartan (olmesartan 5 mg oral tablet) 1 tab(s) Oral every day. tamsulosin (Flomax 0.4 mg oral capsule) 1 cap(s) Oral every day. traMADol (Ultram 50 mg oral tablet) 1 tab(s) Oral every 6 hours as needed as needed for pain. Refills: 0. Medication List: New Medications [id number], [address], [place] [id number], [phone] cephalexin (cephalexin 500 mg oral capsule) 1 cap(s) Oral Every 12 hours scheduled time for 3 Days.Refills: 0. traMADol (Ultram 50 mg oral tablet) 1 tab(s) Oral every 6 hours as needed as needed for pain. Refills: 0. Medications to Continue That Have Not Changed Other Medications olmesartan (olmesartan 5 mg oral tablet) 1 tab(s) Oral every day. tamsulosin (Flomax 0.4 mg oral capsule) 1 cap(s) Oral every day. New Medications [facility]/pharm[facility] #[id number], [address], [place] [id number], [phone] cephalexin (cephalexin 500 mg oral capsule) 1 cap(s) Oral Every 12 hours scheduled time for 3 Days.Refills: 0. traMADol (Ultram 50 mg oral tablet) 1 tab(s) Oral every 6 hours as needed as needed for pain. Refills: 0. Medications to Continue That Have Not Changed Other Medications olmesartan (olmesartan 5 mg oral tablet) 1 tab(s) Oral every day. tamsulosin (Flomax 0.4 mg oral capsule) 1 cap(s) Oral every day. New Medications [facility]/pharmacy #[id number], [address], [place] [id number], [phone] cephalexin (cephalexin 500 mg oral capsule) 1 cap(s) Oral Every 12 hours scheduled time for 3 Days.Refills: 0. traMADol (Ultram 50 mg oral tablet) 1 tab(s) Oral every 6 hours as needed as needed for pain. Refills: 0. Medications to Continue That Have Not Changed Other Medications olmesartan (olmesartan 5 mg oral tablet) 1 tab(s) Oral every day. tamsulosin (Flomax 0.4 mg oral capsule) 1 cap(s) Oral every day. Comment: Lab and Radiology Results Laboratory or Other Results This Visit (last charted value for your 02/22/2023 visit) No Laboratory or Other Results This Visit DIET & ACTIVITY Patient Activity Level: Patient Diet: Patient Activity Restrictions: DISCHARGE INFORMATION Discharge Disposition: Discharge Location: [facility] REASON INCOMPLETE INFORMATION PATIENT EDUCATION INFORMATION Instructions: Follow up: With: Address: When: Gabe Haley MD With: Address: When: Gabe Haley MD DIAGNOSIS 1:BPH (benign prostatic hyperplasia) Comment: PHYS [facility]10-18-2023 Evaluation note* Encounter Date Diagnosis Assessment Notes Treatment Notes Treatment Clinical Notes Jan, Wellness examination (ICD-10 - Z00.00) Healthy diet and exercise. Reviewed age-appropriate preventive testing recommended. Jan, Primary hypertension (ICD-10 - I10) Jan, Other obesity due to excess calories (ICD-10 - E66.09) This patient has been instructed on a low-fat, high-fiber diet. They are instructed to reduce calories, portion sizes and snacks. It is recommended that they exercise for 30 minutes, 3-5 times weekly. Jan, Body mass index [BMI] 34.0-34.9, adult (ICD-10 - Z68.34) Jan, Benign prostatic hyperplasia with lower urinary tract symptoms (ICD-10 - N40.1) Scheduled for Laser treatment for BPH symptoms Jan, Hesitancy of micturition (ICD-10 - R39.11) BPH may be contributing. Did not improve w/ Flomax and course of antibiotics. Refer to urology for further evaluation. May, Malignant neoplasm of prostate (ICD-10 - C61) Active surveillance Serial PSA /w [facility] Other 08-04-2023 Hospital Discharge instructions* Discharge Instructions* Mustapha Augustine DO - 11/12/2022 12:31 PM EDT -Maintain Dior catheter until you are able to follow-up with urology outpatient -Continue antibiotics for treatment of urinary tract infection -Return to the hospital develop any fevers, chills, nausea, vomiting, diarrhea. -Maintain Dior catheter, speak with your urologist received medical attention if you have inability to urinate * Attachments The following attachments cannot be sent through Care Everywhere. * Urinary [facility] (Setswana) [facility] Narrative* Mustapha Augustine DO - 11/12/2022 12:29 PM EDT Images from the original note were not included. [facility] Office: [phone] Javad Walker DO, Narayan Perez DO, Chasitty Nair DO, Jameson Orourke DO, Melchor Jackson MD, Priscila Handley MD, Candelario Davis MD, Mel Amezquita MD, Spencer Mejia MD, Barry Camarena MD, Christophe Burris DO, Juanito West MD, Mustapha Augustine DO, Osiel Arredondo MD, Quang Soriano MD, Syd Walker DO, Sandra Pascual MD, Nomi Chand DO, Ria Alonzo MD, Niki Livingston MD, MD Sofia, Srinivas Valdez MD, Haris Caruso MD, Melanie Dumont MD, Kennedy Duvall DO, Sera Perez MD, Quinn Rg MD, Lidya Womack, CARPET INSTALLER HELPER, Regina Mendoza, CARPET INSTALLER HELPER, Mirlande Rodriguez, CARPET INSTALLER HELPER, Román Carrasco, CARPET INSTALLER HELPER, Camila Flores, SHAI, Flor Pinzon, CARPET INSTALLER HELPER, Ariadna Montilla, CARPET INSTALLER HELPER, Melania Coffey, CARPET INSTALLER HELPER, Debi Partida, CARPET INSTALLER HELPER, Mercedes Flores, [facility], Dom Elias PA-C, Sondra Alvarado, ENGINEERING EXECUTIVE, Magda Garcia, [facility], Clarice Rubio, [facility] IN-PATIENT SERVICE [facility] Discharge Summary Patient ID: Kamron Thompson : 1970 ACCOUNT: [id number] Patient's PCP: Catarino Condon DO Admit Date: 11/12/2022 Discharge Date: 11/12/2022 Length of Stay: 0 Code Status: Full Code Admitting Physician: Chastity Nair DO Discharge Physician: Mustapha Augustine DO Active Discharge Diagnoses: Hospital Problem Lists: Principal Problem: Urine retention Active Problems: Urinary retention Resolved Problems: * No resolved hospital problems. * Admission Condition: stable Discharged Condition: stable Hospital Stay: Hospital Course: Kamron Thompson is a 52 y.o. male with a history of prostate cancer and BPH who presents to the hospital as a transfer from [place] for inability to urinate and clot retention. Patientdid have some associated pain that was described as a bladder spasm. He was seen by urology and started on CBI and irrigated to clear. Urology recommended continuing Flomax, Levsin and antibiotics after urinalysis showed nitrites, leuk esterase and WBCs. Patient does follow with Dr. Haley and has anappointment scheduled for Tuesday. Currently, patient is medically stable for discharge. Needs to maintain his Dior catheter until he is able to see them in clinic. Patient instructed to return to the hospital if he has any inability to urinate or if he does not feel well Significant therapeutic interventions: see above Significant Diagnostic Studies: Labs / Micro: CBC: Lab Results Component Value Date/Time WBC 9.7 11/12/2022 11:00 AM RBC 4.83 11/12/2022 11:00 AM HGB 14.9 11/12/2022 11:00 AM HCT 43.9 11/12/2022 11:00 AM MCV 90.9 11/12/2022 11:00 AM MCH 30.8 11/12/2022 11:00 AM MCHC 33.9 11/12/2022 11:00 AM RDW 11.7 11/12/2022 11:00 AM PLT 278 11/12/2022 11:00 AM BMP: Lab Results Component Value Date/Time GLUCOSE 90 11/12/2022 11:00 AM NA 140 11/12/2022 11:00 AM K 3.9 11/12/2022 11:00 AM CL 104 11/12/2022 11:00 AM CO2 26 11/12/2022 11:00 AM ANIONGAP 10 11/12/2022 11:00 AM BUN 13 11/12/2022 11:00 AM CREATININE 1.0 11/12/2022 11:00 AM CALCIUM 9.1 11/12/2022 11:00 AM LABGLOM >60 11/12/2022 11:00 AM Radiology: No results found. Consultations: Consults: Final Specialist Recommendations/Findings: IP CONSULT TO UROLOGY The patient was seen and examined on day of discharge and this discharge summary is in conjunction with any daily progress note from day of discharge. Discharge plan: Disposition: Home Physician Follow Up: Catarino Condon DO [address] [facility] [address] Schedule an appointment as soon as possible for a visit in 1 week(s) Gabe Haley MD [address] [facility] [address] Follow up Requiring Further Evaluation/Follow Up POST HOSPITALIZATION/Incidental Findings: -Maintain Dior catheter until you are able to follow-up with urology outpatient -Continue antibiotics for treatment of urinary tract infection -Return to the hospital develop any fevers, chills, nausea, vomiting, diarrhea. -Maintain Dior catheter, speak with your urologist received medical attention if you have inability to urinate Diet: regular diet Activity: As tolerated Instructions to Patient: see above Discharge Medications: Medication List START taking these medications Hyoscyamine Sulfate SL 0.125 MG Subl Commonly known as: Levsin/SL Place 0.125 mg under the tongue every 6 hours as needed (bladder spasms) STOP TAKING DAY BEFORE CATHETER REMOVAL sulfamethoxazole-trimethoprim 800-160 MG per tablet Commonly known as: BACTRIM DS;SEPTRA DS Take 1 tablet by mouth 2 times daily for 7 days CHANGE how you take these medications * TAMSULOSIN HCL PO What changed: Another medication with the same name was added. Make sure you understand how and when to take each. * tamsulosin 0.4 MG capsule Commonly known as: FLOMAX Take 1 capsule by mouth daily What changed: You were already taking a medication with the same name, and this prescription was added. Make sure you understand how and when to take each. * This list has 2 medication(s) that are the same as other medications prescribed for you. Read thedirections carefully, and ask your doctor or other care provider to review them with you. Where to Get Your Medications These medications were sent to [place], [place] - [address] [place] [address] - P [phone] - F [phone] [place] [address] Hyoscyamine Sulfate SL 0.125 MG Subl sulfamethoxazole-trimethoprim 800-160 MG per tablet tamsulosin 0.4 MG capsule No discharge procedures on file. Time Spent on discharge is 38 mins in patient examination, evaluation, counseling as well as medication reconciliation, prescriptions for required medications, discharge plan and follow up. Electronically signed by Mustapha Augustine DO 11/12/2022 12:[address] Catarino Condon DO for the opportunity to be involved in this patient's care. [facility]* Encounter Date Diagnosis Assessment Notes Treatment Notes Treatment Clinical Notes Sep, Obesity (BMI 30-39.9) (ICD-10 - E66.9) [facility] Other 04-19-2023 Evaluation note* Encounter Date Diagnosis Assessment Notes Treatment Notes Treatment Clinical Notes Jul, Obesity (BMI 30-39.9) (ICD-10 - E66.9) This patient has been instructed on a low-fat, high-fiber diet. They are instructed to reduce calories, portion sizes and snacks. It is recommended that they exercise for 30 minutes, 3-5 times weekly. Jul, Benign prostatic hyperplasia with lower urinary tract symptoms (ICD-10 - N40.1) Continue Flomax d/c Finasteride w/o change in habits Jul, Prostate cancer (ICD-10 - C61) Continue active surveillance. f/u Urology s/p TRUS/Bx x 2 s/p MRI w/ questionable area Most recent PSA 1.7 (finasteride) Jul, Nocturia (ICD-10 - R35.1) Continue Flomax, symptoms tolerable [facility] Other Evaluation note* Diagnosis Urine retention- Primary Retention of urine, unspecified Urinary retention Retention of urine, unspecified Urinary retention Retention of urine, unspecified documented in this encounter [facility] noteNo InformationNort Jobspotting Other History general Narrative - Reported* Type Description Date Medical History Prostate cancer Medical History Ganglion of right wrist Medical History Asymptomatic varicose veins of b oth lower extremities Medical History Urinary hesitancy Surgical History TRUS/Bx prostate 2021 Surgical History COLONOSCOPY 2019 Hospitalization History SEE SURGICAL HX [facility] Other History general Narrative - Reported* Type Description Date Medical History Prostate cancer Medical History Ganglion of right wrist Medical History Asymptomatic varicose veins of b oth lower extremities Medical History Urinary hesitancy Surgical History TRUS/Bx prostate 2021 Surgical History COLONOSCOPY 2019 Surgical History Cystoscopy, Green light therapy 02/2023 Hospitalization History SEE SURGICAL HX [facility] Other Summary Purpose Family History No Family History Records FoundNo Family History Records FoundNo Family History Records FoundNo Family History Records FoundNo Family History Records Found Advance Directives Latest Code Status on File Code Status Date Activated Date Inactivated Comments Full Code 11/12/2022 9:54 AM Additional Source Comments Source Comments (unrecognize d section and content) In the event this informatio n is protected by the [facility] Confidentiality of Alcohol and Drug Abuse Patient Records regulations: The Federal rules restrict any use of the information to criminally investigate or prosecute any alcohol or drug abuse patient.[facility] (unrecognized sect ion and content) No Status Records FoundNo Status Records FoundNo Status Records FoundNo Status Records FoundNo Status Records Found INFORMATION SOURCE (unrecogn ized section and content) DATE CREATED AUTHOR 11/14/2020 [facility] DATE CREATED AUTHOR AUTHOR'S ORGANIZ ATION 04/26/2021 [facility] DATE CREATED AUTHOR AUTHOR'S ORGANIZ ATION 06/23/2022 [facility] DATE CREATED AUTHOR AUTHOR'S ORGANIZ ATION 11/18/2022 [facility] DATE CREATED AUTHOR AUTHOR'S ORGANIZ ATION 03/04/2023 [facility] REASON FOR VISIT (unrecogniz ed section and content) Refill Reason Comments Urinary Retention Direct admit Ordered Prescriptions (unrec ognized section and content) Prescription Sig Dispensed Refills Start Date End Da te Hyoscyamine Sulfate SL (LEVSIN/SL) 0.[address] 0.125 mg under the tongue every 6 hours as needed (bladder spasms) STOP TAKING DAY BEFORE CATHETER REMOVAL 12 each 0 11/12/2022 11/15/2022 sulfamethoxazole-trimet hoprim (BACTRIM DS;SEPTRA DS) 800-160 MG per tablet Take 1 tablet by mouth 2 times daily for 7 days 14 tablet 0 11/12/2022 11/19/2022 tamsulosin (FLOMAX) 0.4 MG capsule Take 1 capsule by mouth daily 30 capsule 0 11/12/2022 Scheduled Active and Recently Administ ered Medications (unrecognized section and content) Medication Order 11/10/2022 11/11/2022 11/12/2022 enoxaparin (LOVENOX) injection 40 mg 40 mg, SubCUTAneous, DAILY, First dose on Tue11/12/22 at 1000, Until Discontinued, Indication of Use: Prophylaxis-DVT/PE 1000 (Due) sodium chloride flush 0.9 % injection 5-40 mL 5-40 mL, IntraVENous, EVERY 12 HOURS SCHEDULED (2 times per day), First dose on Tue11/12/22 at 1000, Until Discontinued, For Line Patency: Peripheral IV = 5 mL; Midline or Central Line = 10 mL/lumen. If following IV push medication, administer flush at same rate as the IV push. Flush volume is determined by type of infusion therapy being given. For non-viscous solutions use: Peripheral IV = 5 mL Midline or Central Line = 10 mL/lumen For viscous solutions (i.e. blood components, parenteral nutrition, contrast media, or after obtaining blood sample) use: Peripheral IV = 10 mL Midline or Central Line = 20 mL/lumen 1000 (Due)2100 (Due) Continuous Medication Order 11/10/2022 11/11/2022 11/12/2022 0.9 % sodium chloride infusion IntraVENous, at 75 mL/hr, CONTINUOUS, Starting on Tue11/12/22 at 1000 1000 (Due) PRN Medication Order 11/10/2022 11/11/2022 11/12/2022 0.9 % sodium chloride infusion IntraVENous, at 5-250 mL/hr, PRN, if patient receiving piggyback infusions and maintenance fluids are not ordered OR KVO fluids to protect IV site / prevent frequent line interruptions/ long duration, Starting on Tue11/12/22 at 0954, For piggyback infusion, administer at same rate as piggyback for a total of 25 mL. Enter 25 mL into dose field and piggyback rate into rate field of order. If piggyback is infusing at a rate less than 100 mL/hr, enter 25 mL into dose field and 100 mL/hr into rate field of order. For KVO fluids, enter rate of 20 mL/hr or less into rate field of order. acetaminophen (TYLENOL) suppository 650 mg(Linked Group 1) 650 mg, Rectal, EVERY 6 HOURS PRN, Starting on Tue11/12/22 at 0954, Until Discontinued, Pain Mild (1-3), Fever, For temp greater than 100.4 F (38 C), Administer if oral route cannot be used. acetaminophen (TYLENOL) tablet 650 mg(Linked Group 1) 650 mg, Oral, EVERY 6 HOURS PRN, Starting on Tue11/12/22 at 0954, Until Discontinued, Pain Mild (1-3), Fever, For temp greater than 100.4 F (38 C), Maximum dose of acetaminophen is 4000 mg from all sources in 24 hours. bisacodyl (DULCOLAX) suppository 10 mg 10 mg, Rectal, DAILY PRN, Starting on Tue11/12/22 at 0954, Until Discontinued, Constipation, Second line therapy for constipation, After 24 hours, if no result from first line PRN therapy, give second line therapy in combination with first line therapy. ondansetron (ZOFRAN) injection 4 mg(Linked Group 2) 4 mg, IntraVENous, EVERY 6 HOURS PRN, Starting on Tue11/12/22 at 0954, Until Discontinued, Nausea, Vomiting, Administer if oral route cannot be used. ondansetron (ZOFRAN-ODT) disintegrating tablet 4 mg(Linked Group 2) 4 mg, Oral, EVERY 8 HOURS PRN, Starting on Tue11/12/22 at 0954, Until Discontinued, Nausea, Vomiting polyethylene glycol (GLYCOLAX) packet 17 g 17 g, Oral, DAILY PRN, Starting on Tue11/12/22 at 0954, Until Discontinued, Constipation, First line therapy for constipation potassium bicarb-citric acid (EFFER-K) effervescent tablet 40 mEq(Linked Group 3) 40 mEq, Oral, PRN, Starting on Tue11/12/22 at 0954, Until Discontinued, Per Potassium Replacement Protocol, Administer as alternative if patient unable to tolerate oral tablet. K Lab Replacement Action 3.1 to 3.5 40 mEq ORAL x 1 Under 3.1 Refer to IV replacement protocol Recheck K level in AM. Protocol not for use in patients with CrCl less than 30 mL/min. Do not chew or crush. Dissolve flavored tablets completely in 3 to 4 ounces of cold water; unflavored tablets may be dissolved in 3 to 4 ounces of cold juice. Patient to sip slowly over a 5 to 10 minute period. May further dilute if GI adverse effects occur. potassium chloride (KLOR-CON M) extended release tablet 40 mEq(Linked Group 3) 40 mEq, Oral, PRN, Starting on Tue11/12/22 at 0954, Until Discontinued, Potassium Replacement, May give alternative linked oral order (ordered as effervescent, packet, or liquid solution) if patient unable to tolerate tablet. K Lab Replacement Action 3.1 to 3.5 40 mEq ORAL x 1 Under 3.1 Refer to IV replacement protocol Recheck K level in AM. Protocol not for use in patients with CrCl less than 30 mL/min. potassium chloride 10 mEq/100 mL IVPB (Peripheral Line)(Linked Group 3) 10 mEq, IntraVENous, PRN, Starting on Tue11/12/22 at 0954, Until Discontinued, at 100 mL/hr, Potassium Replacement, K Lab Replacement Action 2.7 to 3.0 10 mEq IVPB x 6 doses (60 mEq Total) Under 2.7 CALL PROVIDER and administer 10 mEq IVPB x 6 doses (60 mEq Total) Infuse at 10 mEq/hr. Repeat Potassium lab 1 hour after final administration. Protocol not for use in patients with CrCl less than 30 mL/min. sodium chloride flush 0.9 % injection 5-40 mL 5-40 mL, IntraVENous, PRN, Starting on Tue11/12/22 at 0954, Until Discontinued, Line Care, After every IV line use, For Line Patency: Peripheral IV = 5 mL; Midline or Central Line = 10 mL/lumen. If following IV push medication, administer flush at same rate as the IV push. Flush volume is determined by type of infusion therapy being given. For non-viscous solutions use: Peripheral IV = 5 mL Midline or Central Line = 10 mL/lumen For viscous solutions (i.e. blood components, parenteral nutrition, contrast media, or after obtaining blood sample) use: Peripheral IV = 10 mL Midline or Central Line = 20 mL/lumen Linked Groups Order Group 1: acetaminophen (TYLENOL) tablet 650 mgJump to med 650 mg, Oral, EVERY 6 HOURS PRN, Starting on Tue11/12/22 at 0954, Until Discontinued, Pain Mild (1-3), Fever, For temp greater than 100.4 F (38 C)
Maximum dose of acetaminophen is 4000 mg from all sources in 24 hours.
Or acetaminophen (TYLENOL) suppository 650 mgJump to med 650 mg, Rectal, EVERY 6 HOURS PRN, Starting on Tue11/12/22 at 0954, Until Discontinued, Pain Mild (1-3), Fever, For temp greater than 100.4 F (38 C)
Administer if oral route cannot be used.
Group 2: ondansetron (ZOFRAN-ODT) disintegrating tablet 4 mgJump to med 4 mg, Oral, EVERY 8 HOURS PRN, Starting on Tue11/12/22 at 0954, Until Discontinued, Nausea, Vomiting Or ondansetron (ZOFRAN) injection 4 mgJump to med 4 mg, IntraVENous, EVERY 6 HOURS PRN, Starting on Tue11/12/22 at 0954, Until Discontinued, Nausea, Vomiting
Administer if oral route cannot be used.
Group 3: potassium chloride (KLOR-CON M) extended release tablet 40 mEqJump to med 40 mEq, Oral, PRN, Starting on Tue11/12/22 at 0954, Until Discontinued, Potassium Replacement
May give alternative linked oral order (ordered as effervescent, packet, or liquid solution) if patient unable to tolerate tablet. K Lab Repla cemen t Action 3.1 to 3.5 40 mEq ORAL x 1 Under 3.1 Refer to IV replacement protocol Recheck K level in AM. Protocol not for use in patients with CrCl less than 30 mL/min.
Or potassium bicarb-citric acid (EFFER-K) effervescent tablet 40 mEqJump to med 40 mEq, Oral, PRN, Starting on Tue11/12/22 at 0954, Until Discontinued, Per Potassium Replacement Protocol
Administer as alternative if patient unable to tolerate oral tablet. K Lab Repla cemen t Action 3.1 to 3.5 40 mEq ORAL x 1 Under 3.1 Refer to IV replacement protocol Recheck K level in AM. Protocol not for use in patients with CrCl less than 30 mL/min. Do not chew or crush. Dissolve flavored tablets completely in 3 to 4 ounces of cold water; unflavored tablets may be dissolved in 3 to 4 ounces of cold juice. Patient to sip slowly over a 5 to 10 minute period. May further dilute if GI adverse effects occur.
Or potassium chloride 10 mEq/100 mL IVPB (Peripheral Line)Jump to med 10 mEq, IntraVENous, PRN, Starting on Tue11/12/22 at 0954, Until Discontinued, at 100 mL/hr, Potassium Replacement
K Lab Replacement Action 2.7 to 3.0 10 mEq IVPB x 6 doses (60 mEq Total) Under 2.7 CALL PROVIDER and administer 10 mEq IVPB x 6 doses (60 mEq Total) Infuse at 10 mEq/hr. Repeat Potassium lab 1 hour after final administration. Protocol not for use in patients with CrCl less than 30 mL/min.
Care Teams (unrecognized sec tion and content) Customer Supply Coordinator Relationship Specialty Start Date End Date RoseannaCatarino [address] [place] [id number] PCP - General Internal Medicine 11/12/22 FOR RECORDS PERTAINING TO PATIENTS WHO ARE OR HAVE BEEN ENROLLED IN A CHEMICAL DEPENDENCY/SUBSTANCEABUSE PROGRAM, SOME INFORMATION MAY BE OMITTED. This clinical summary was aggregated from multiple sources. Caution should be exercised in using it in the provision of clinical care. This summary normalizes information from multiple sources, and as a consequence, information in this document may materially change the coding, format and clinical context of patient data. In addition, data may be omitted in some cases. CLINICAL DECISIONS SHOULD BE BASED ON THE PRIMARY CLINICAL RECORDS. [employer] provides no warranty or guarantee of the accuracy or completeness of information in this document.
[2023-10-12 15:41] LABS: Prostate Specific Antigen Dx 3.19 ng/mL (<=4.00)
== END 2023-10-12 13:53 | disposition home or self-care (01) ==
LOC: LAB 13:54
PROVIDERS: PCP Internal Medicine; Visit Provider Urology
DX: N40.1 Benign prostatic hyperplasia with lower urinary tract symptoms (principal)
CPT/HCPCS: 36415; 84153

== ENCOUNTER 2024-08-04 08:41 | Outpatient (OUT) | payer OTHER, SELFPAY ==
[2024-08-04 09:04] LABS: Basophils Percent Auto 0.4 % (0.2-2.0); Eosinophils Absolute Auto 0.1 10^3/uL (0.0-0.7); Eosinophils Percent Auto 1.7 % (0.9-7.0); Hematocrit 44.8 % (42.0-54.0); Hemoglobin 15.2 g/dL (14.0-18.0); Immature Granulocytes Abs Auto 0.01 10^3/uL (0.00-0.03); Immature Granulocytes Pct Auto 0.2 % (0.0-0.5); Lymphocytes Absolute Auto 2.2 10^3/uL (1.2-3.8); Lymphocytes Percent Auto 40.6 % (20.5-60.0); Mean Corpuscular HGB Conc 33.9 g/dL (29.9-35.2); Mean Corpuscular Hemoglobin 30.5 pg (25.9-34.0); Mean Platelet Volume 9.2 fL (9.5-13.5); Monocytes Absolute Auto 0.5 10^3/uL (0.3-0.8); Monocytes Percent Auto 8.6 % (1.7-12.0); Neutrophils Absolute Auto 2.6 10^3/uL (1.4-6.5); Neutrophils Percent Auto 48.5 % (43.0-75.0); Platelet Count 308 10^3/uL (150-450); Red Blood Count 4.98 10^6/uL (4.70-6.10); Red Cell Distribution Width 11.3 % (11.0-15.0); White Blood Count 5.4 10^3/uL (4.0-11.0)
[2024-08-04 09:44] LABS: Alanine Aminotransferase 29 U/L (16-63); Albumin Globulin Ratio 1.2; Albumin Level 3.9 g/dL (3.4-5.0); Alkaline Phosphatase 61 U/L (46-116); Anion Gap 10.8; Aspartate Amino Transferase 22 U/L (15-37); BUN Creatinine Ratio 14.2; Bilirubin Total 0.9 mg/dL (0.2-1.0); Calcium 8.9 mg/dL (8.5-10.1); Carbon Dioxide 30.3 mmol/L (21.0-32.0); Chloride 105 mmol/L (98-107); Cholesterol 253 mg/dL (<=200); Estimated GFR (African America >60 (>=60 mL/min/1.73m^2); Estimated GFR (Non-African Ame >60 (>=60 mL/min/1.73m^2); Globulin 3.3 g/dL; Glucose 93 mg/dL (74-106); HDL Cholesterol 51 mg/dL (40-60); Potassium 4.1 mmol/L (3.5-5.1); Sodium 142 mmol/L (136-145); Total Protein 7.2 g/dL (6.4-8.2); Triglycerides 122 mg/dL (<=150); VLDL CHOLESTEROL 24.4 mg/dL
== END 2024-08-04 08:42 | disposition home or self-care (01) ==
LOC: LAB 08:42
PROVIDERS: PCP Internal Medicine; Visit Provider Internal Medicine
DX: Z00.00 Encounter for general adult medical examination without abnormal findings (principal)
CPT/HCPCS: 36415; 80053; 80061; 85025

== ENCOUNTER 2025-02-16 08:07 | Outpatient (OUT) | payer OTHER, SELFPAY ==
--- OUTSIDE RECORDS SUMMARY | 2025-02-16 08:11 | XMS_ITS | Clinical Summary ---
Author Organization [facility] Address [address], [address] [place] [address] Care Team Providers Care Venture Capital Analyst Name Role Phone Catarino French DO Primary Care Provider [phone] Allergies No known active allergies Medications MedicationSigDispense QuantityRefillsLast FilledStart DateEnd DateStatus TAMSULOSIN HCL PO Take by mouthActive tamsulosin (FLOMAX) 0.4 MG capsule Take 1 capsule by mouth daily 30 capsule 11/12/2022ctive Hyoscyamine Sulfate SL (LEVSIN/SL) 0.[address] 0.125 mg under the tongue every 6 hours as needed (bladder spasms) STOP TAKING DAY BEFORE CATHETER REMOVAL 12 each 11/12/2022ctive Active Problems ProblemNoted DateDiagnosed DateUrine bqbrerynh99/04/2023Urinary retention 11/12/2022 Social History Tobacco UseTypesPacks/DayYears UsedDateSmoking Tobacco: Never AssessedAlcohol UseStandard Drinks/WeekCommentsNot Currently0 (1 standard drink = 0.6 oz pure alcohol)Sex and Gender InformationValueDate RecordedSex Assigned at BirthNot on fileLegal VowRtsj1711/12/2022 7:16 AM EDTGender IdentityNot on fileSexual OrientationNot on file Last Filed Vital Signs Vital SignReadingTime TakenCommentsBlood Cpgkkohi826/9411/12/2022 9:42 AM EDT Bmlav424011/12/2022 9:42 AM SRQZsrvsahccha70.1 ??C (98.7 ??F)11/12/2022 9:42 AM EDTRespiratory Vhaj571411/12/2022 9:42 AM EDTOxygen Sbpxwnndor94%11/12/2022 9:45 AM EDTInhaled Oxygen Concentration--Kmmdkc694.9 kg (240 lb)11/12/2022 9:44 AM EDTHeight--Body Mass Index-- Plan of Treatment Health MaintenanceDue DateLast DoneCommentsDTaP/Tdap/Td vaccine (1 - Tdap) 1989Flu vaccine (#1)11/09/2024OVID-19 Vaccine ( - season) 2024Polio vaccineAged OutNo longer eligible based on patient's age to complete this topic Insurance Advance Directives * Full Code (Latest Code Status on File) Date ActivatedDate InactivatedComments11/12/2022 9:54 AM11/12/2022 2:42 PM Care Teams Team MemberRelationshipSpecialtyStart DateEnd Date Catarino French DO [address] [place] [id number] PCP - GeneralInternal Medicine11/12/22
--- OUTSIDE RECORDS SUMMARY | 2025-02-16 08:11 | XMS_ITS | CCD ---
Author Organization [facility] Care Team Providers Care Hair Boiler Operator Name Role Phone Unavailable Primary Care Provider Unavailabl e MISC, DR BARRAGAN Admitting Unavailable ROSEANNA, DR SALINAS Primary Care Unavailable MISC, DR BARRAGAN Consulting Unavailable MISC, DR BARRAGAN Attending Unavailable ROSEANNA, DR SALINAS Consulting Unavailable ROSEANNA, DR SALINAS Attending Unavailable ROSEANNA, DR SALINAS Admitting Unavailable ROSEANNA, DR SALINAS Primary Care Unavailable Catarino Condon Unavailable Catarino Condon DO Primary Care Provider CATARINO CONDON Primary Care Unavailable CHASTITY NAIR Admitting Unavailable MUSTAPHA AUGUSTINE I Attending Unavailable NIKI BOB Referring Unavailable CATARINO CONDON Primary Care Unavailable TYSON CAMARENA Consulting Unavailable MUSTAPHA AUGUSTINE I Consulting Unavailable Gabe Haley Attending Unavailable Catarino Condon Primary Care Unavailable Gabe Haley Admitting Unavailable Gabe Haley Attending Unavailable Catarino Condon Primary Care Unavailable Gabe Haley Admitting Unavailable Allergies Allergy ClassificationReported Allergen(s)Allergy TypeDate of OnsetReaction(s) Facility (1 source)No Known Medication Allergies; Translations: [No Known Medication Allergies]Propensity to adverse reactions to drug (disorder)[facility] Repository Medications Current Medications MedicationDrug Class(es)DatesSig (Normalized)Sig (Original)0.5 ML tirzepatide 20 MG/ML Auto-Injector [Mounjaro] (2 sources)Start: 76-41-3638atulkd 10 mg by subcutaneous injection every week Mounjaro 10 MG/0.5ML 10 MG Subcutaneous weekly for 28 days Jul, Active inject 10 mg by subcutaneous injection every weekAcetaminophen (1 source)Start: 61-60-8568ldzzxeuyavulw (TYLENOL) tablet 650 mghyoscyamine sulfate 0.125 mg sublingual tablet (1 source)Start: 11-12-2022 End: 22-95-1093Hiaefvqmjse Sulfate SL (LEVSIN/SL) 0.[address] 0.125 mg under the tongue every 6 hours as needed (bladder spasms) STOP TAKING DAY BEFORE CATHETER REMOVAL 12 each 0 11/12/2022 11/15/2022 Activemounjaro 2.5 mg/0.5ml solution pen-injector (3 sources)Start: 87-88-3271pwbilt 2.5 mg by subcutaneous injection every week Mounjaro 2.5 MG/0.5ML 2.5 MG Subcutaneous weekly for 28 days Apr, Active olmesartan medoxomil 5 mg oral tablet (9 sources)Angiotensin 2 Receptor BlockerStart: 06-01-2024 End: 95-89-5877kywl 1 tablet by mouth once dailyOlmesartan 5 mg tablet Active 5 MG PO Daily June 01, 2024 4:53pmStart: 03-81-6864Iibwhvuvzt Medoxomil 5 MG as directed Orally Once a day for 30 days Jan, Active ondansetron (ZOFRAN-ODT) disintegrating tablet 4 mg (1 source)Start: 91-51-4788joquhtxzfyg (ZOFRAN-ODT) disintegrating tablet 4 mg Potassium Chloride (1 source)Start: 28-11-3325fnvpswyaz chloride (KLOR-CON M) extended release tablet 40 pXf3551 ml sodium chloride 9 mg/ml injection (4 sources)Start: 60-10-6369QneajXUSysk, at 75 mL/hr, CONTINUOUS, Starting on Tue11/12/22 at 1000Start: 10-61-0480MfqurEGVfsj, at 5-250 mL/hr, PRN, if patient receiving piggyback infusions and maintenance fluids are not ordered OR KVO fluids to protect IV site / prevent frequent line interruptions/ long duration, Starting on Tue11/12/22 at 0954 For piggyback infusion, administer at same rate as piggyback for a total of 25 mL. Enter 25 mL into dose field and piggyback rate into rate field of order. Ifpiggyback is infusing at a rate less than 100 mL/hr, enter 25 mL into dose field and 100 mL/hr intorate field of order. For KVO fluids, enter rate of 20 mL/hr or less into rate field of order.Start: 53-23-0206djva 1 dose intravenously twice daily5-40 mL, IntraVENous, EVERY 12 HOURS SCHEDULED (2 times per day), First dose on Tue11/12/22 at 1000,Until Discontinued For Line Patency: Peripheral IV = 5 mL; Midline or Central Line = 10 mL/lumen. If following IV push medication, administer flush at same rate as the IV push. Flush volume is determined by type of infusion therapy being given. For non-viscous s olutions use: Peripheral IV = 5 mL Midline or Central Line = 10 mL/lumen For viscous solutions (i.e. blood components, parenteral nutrition, contrast media, or after obtaining blood sample) use: Peripheral IV = 10 mL Midline or Central Line = 20 mL/lumenStart: 76-69-7579aizf 5-40 mL intravenously once as needed5-40 mL, IntraVENous, PRN, Starting on Tue11/12/22 at 0954, Until Discontinued, Line Care, After every IV line use For Line Patency: Peripheral IV = 5 mL; Midline or Central Line = 10 mL/lumen.&nbs p; If following IV push medication, administer flush [...] mL Midline or Central Line = 20 mL/lumensulfamethoxazole 800 mg / trimethoprim 160 mg oral tablet (1 source)Dihydrofolate Reductase Inhibitor Antibacterial, Sulfonamide AntimicrobialStart: 11-12-2022 End: 19-35-7807wukl 1 tablet by mouth twice dailysulfamethoxazole-trimethoprim (BACTRIM DS;SEPTRA DS) 800-160 MG per tablet Take 1 tablet by mouth 2times daily for 7 days 14 tablet 0 11/12/2022 11/19/2022 Activetamsulosin hydrochloride 0.4 mg oral capsule (7 sources)alpha-Adrenergic BlockerStart: 72-13-6116yhds 1 capsule by mouth once dailytamsulosin (FLOMAX) 0.4 MG capsule Take 1 capsule by mouth daily 30 capsule 0 11/12/2022 Activetake 1 capsule by mouth every twenty-four hours Tamsulosin HCl 0.4 MG 1 capsule Orally Once a day ActiveTAMSULOSIN HCL PO Take by mouth 0 Active Completed/Discontinued Medications MedicationDrug Class(es)DatesSig (Normalized)Sig (Original)0.5 ML tirzepatide 25 MG/ML Auto-Injector [Mounjaro] (3 sources)inject 12.5 mg by subcutaneous injection every weekMounjaro 12.5 MG/0.5ML 12.5 MG Subcutaneous weekly for 28 days Not-Takinginject 12.5 mg by subcutaneous injection every weekMounjaro 12.5 MG/0.5ML 12.5 MG Subcutaneous weekly for 28 days Activebisacodyl 10 mg rectal suppository (1 source)Stimulant LaxativeStart: 50-77-4093dinm 10 mg rectal route once daily as mg, Rectal, DAILY PRN, Starting on Tue11/12/22 at 0954, Until Discontinued, Constipation Second line therapy for constipation, After 24 hours, if no result from first line PRN therapy, give second line therapy in combination with first line therapy.0.4 ml enoxaparin sodium 100 mg/ml prefilled syringe (1 source)Low Molecular Weight HeparinStart: 94-41-7942jegkks 40 mg by subcutaneous injection once daily40 mg, SubCUTAneous, DAILY, First dose on Tue11/12/22 at 1000, Until Discontinued Indication of Use:Prophylaxis-DVT/PEmounjaro 12.5 mg/0.5ml solution pen-injector (3 sources)inject 12.5 mg by subcutaneous injection every week as neededMounjaro 12.5 MG/0.5ML 12.5 MG Subcutaneous weekly for 28 days Not-Taking/PRN polyethylene glycol 3350 10873 mg powder for oral solution (1 source)Osmotic LaxativeStart: 00-52-185542 g, Oral, DAILY PRN, Starting on Tue11/12/22 at 0954, Until Discontinued, Constipation First line therapy for constipation Problems Problem ClassificationProblemDateDocumented DateEpisodic/ChronicCancer of prostate (17 sources)Malignant neoplasm of prostate; Translations: [Carcinoma of prostate]Onset: 31-35-1200StbxsyhIssybyz on above:TURP/bx x 2MRI x 1 no nodules visualizedEssential hypertension (8 sources)Essential hypertension; Translations: [Essential (primary) hypertension]ChronicGenitourinary symptoms and ill-defined conditions (16 sources)Delay when starting to pass urine; Translations: [Hesitancy of micturition]Onset: 35-58-8615KcsdiotxPzbmnntafpq of prostate (13 sources)Nocturia due to benign prostatic hypertrophy; Translations: [Benign prostatic hyperplasia with lower urinary tract symptoms]ChronicOther connective tissue disease (7 sources)Ganglion cyst of right wrist; Translations: [Ganglion, right wrist] EpisodicOther nutritional; endocrine; and metabolic disorders (12 sources)Body mass index 30+ - obesity; Translations: [Obesity, unspecified] ChronicOther nutritional; endocrine; and metabolic disorders (4 sources)Obesity, unspecified; Translations: [Obesity, unspecified]Chronic Other nutritional; endocrine; and metabolic disorders (5 sources)Obesity caused by energy imbalance; Translations: [Other obesity due to excess calories]ChronicOther nutritional; endocrine; and metabolic disorders (2 sources)Other obesity due to excess caloriesChronicOther nutritional; endocrine; and metabolic disorders (2 sources)Body mass index (BMI) 34.0-34.9, adultChronicOther nutritional; endocrine; and metabolic disorders (2 sources)Obesity; Translations: [Obesity, unspecified]36-09-3476Gutwrzc Varicose veins of lower extremity (7 sources)Varicose veins of bilateral lower limbs; Translations: [Asymptomatic varicose veins of bilateral lower extremities]Episodic Results Test NameValueInterpretationReference RangeFacilityProvider Orderson 03-04-2023 Provider [id number]#1.00OTGTWooster Community HospitalCoding Summaryon 07-92-2678Tlpybp SummaryUTAH VALLEY HOSPITALBase 64 HawifeybNUl3mRh+PGhlYWQ+QM3TXOHfZ74tcERcaL9eV0OANXvCSvhaRSWHQOxKTnTanbSaZP1wmJCd ZXJu [file] Y29 (more content not included)...[facility] CenterConsent Formson 57-83-5434Pxfjfii [id number]#1.00OTPremier Health Miami Valley Hospital SouthDischarge Instructionson 46-82-5180Bzcobpsqm Instructions [id number]#1.00[facility] Telemetry Stripson 17-58-7480Vhtjtgrjt Strips [id number]#1.00[facility] Anesthesia Noteon 87-41-5470Lexfuweldv NotePatient: KAMRON THOMPSON Age: 52 years Sex: MALE : [...] [Verified on: 02/22/2023 11:12 EST] Kennedy Hanna [facility] CenterAnesthesia NotePatient: KAMRON THOMPSON Age: 52 years Sex: MALE : [...] = 50 mL, 100 mL/hr, IV Piggyback, Psychopaedic Nurse Documented Medications Documented Flomax 0.4 mg oral capsule: 0.4 mg = 1 cap(s), PO, Daily olmesartan 5 mg oral tablet: 5 mg = 1 tab(s), PO, Daily, 30 tab(s), 0 Refill(s) Problem list (past medical history): All Problems BPH (benign prostatic hyperplasia) / SNOMED CT 136242924 / Confirmed Prostate CA / SNOMED CT 4431917111 / Confirmed Elevated PSA / SNOMED CT 8252944649 / Confirmed, Active Problems (3) BPH (benign prostatic hyperplasia) Elevated PSA Prostate CA Histories Family History: No family history items have been selected or recorded. Procedure history: History of repair of umbilical hernia (9531872564). Biopsy of prostate (157371863). Colonoscopy (849166235). Social History Electronic Cigarette/Vaping Assessment Electronic Cigarette [...] age 18 none since - 07/15/2020 13:15 Brenda Ching RN Tobacco 07/15/2020 Smoking tobacco use: Never [...] / Management Results review ECG interpretation Plan [place] Society of Anesthesiologists#(ASA) physical status classification: Class II. Anesthetic Preoperative Plan Anesthesia: General. . Anesthetic plan, risks, benefits, and alternatives discussed with the patient and/or family. Risks discussed. Patient verbalized understanding. Informed consent was given. Consent was signed by thepatient. Anesthetic technique: General anesthesia. [Electronically Signed on: 02/22/2023 07:26 EST] Kennedy Hanna DO [Verified on: 02/22/2023 07:26 EST] Kennedy Hanna [facility] CenterInpatient Patient Summaryon 93-40-1352Fpclfnnsi Patient SummaryLauren Ville [id number] Patient Discharge Instructions Name: KAMRON THOMPSON SIMON : 1970 Patient Address: [address] [place] [address] Primary Care Provider: Name: Catarino Condon After you are discharged if you find you have any questions, please, call [phone] ext [phone] to speak to a nurse. Discharge Diagnosis: 1:BPH (benign prostatic hyperplasia) Prescription Information: If you have been given a prescription for narcotics, seek immediate medical attention if you have any difficulty breathing or any sudden status changes such as confusion andsleepiness. If you or anyone you know is experiencing suicidal thoughts, mental health, alcohol and/or drug addiction problems; contact the [facility] 01/11 Crisis Hotline -Text 4HSTX to 184572. If you received any narcotics, sedation, or [...] business decisions or sign any legal documents [facility] would like to thank you for allowing us to assist you with your healthcare needs.The following includes patient education materials and information regarding your injury/illness. KAMRON THOMPSON has been given the following list of follow-up instructions, prescriptions, andpatient education materials: Follow-up Instructions With: Address: When: Gabe Haley MD With: Address: When: Gabe Haley MD Medications During the course of your visit, your medication list was updated with the most current information. The details of those changes are reflected below: New Medications [facility]/pharmacy #[id number], [address], [place] [id number], [phone] cephalexin (cephalexin 500 mg oral capsule) 1 [...] Centers for Disease Control and Prevention December 2013[facility] MAGR Intraoperative Recordon 12-04-2603NVQQ Intraoperative RecordMAGR Intra-Op Record Summary Primary Physician: Gabe Haley MD Finalized Date/Time: 02/22/23 09:44:27 Pt. Name: KAMRON THOMPSON/Sex: 1970 MALE Med Rec #: [id number] Physician: Gabe Haley MD Financial #: [id number] Pt. Type: D Room/Bed: / Admit/Disch: 02/22/23 [...] Role Performed Surgeon - Primary Anesthesiologist of Logistics Project Manager Record Time In 02/22/23 08:41:00 02/22/23 08:41:00 02/22/23 08:41:00 Time Out 02/22/23 09:33:00 02/22/23 09:37:00 02/22/23 09:37:00 Procedure Cystoscopy PVP Cystoscopy PVP Cystoscopy PVP Greenlight Laser Greenlight Laser Greenlight Laser Prostate Prostate Prostate Last Modified By: Radhika Arredondo RN, Barbara RN Long, Barbara RN 02/22/23 09:37:23 02/22/23 09:37:23 02/22/23 09:37:23 Entry 4 Entry 5 Entry 6 Case Attendee Suze Mccullough PROPERTY MANAGEMENT SPECIALIST, Aren Cotter CST CSFA PROPERTY MANAGEMENT SPECIALIST Role Performed Logistics Project Manager Scrub Personnel Stock Driver Time In 02/22/23 08:41:00 02/22/23 08:41:00 02/22/23 [...] Concerns Yes Implemented Addressed Time Out Gabe Halye MD, Time Out Time 02/22/23 07:52:00 Participants Kennedy Hanna DO, Radhika Arredondo RN, Suze Mccullough Wilkins PROPERTY MANAGEMENT SPECIALIST, Florence PROPERTY MANAGEMENT SPECIALIST CSFA, Aren Miles CSFA PROPERTY MANAGEMENT SPECIALIST Last Modified By: Radhika Arredondo RN 02/22/23 09:01:11 Patient Positioning MAGR Pre-Care Text: A.280 Identifies baseline musculoskeletal status Im.40 Positions the patient Im.80 Applies safety devices Entry 1 Procedure Cystoscopy PVP Body P (more content not included)...[facility] PACU Recordon [id number] PACU RecordVETERANS HE[facility] Record Summary Primary Physician: Gabe Haley MD Finalized Date/Time: 02/22/23 10:09:13 Pt. Name: KAMRON THOMPSON/Sex: 1970 MALE Med Rec #: [id number] Physician: Gabe Haley MD Financial #: [id number] Pt. Type: D Room/Bed: / Admit/Disch: 02/22/23 06:31:02 - Institution: PACU Case Times MAGR Entry 1 In PACU I 02/22/23 09:37:00 Discharge from PACU 02/22/23 10:09:00 I Last Modified By: Roni Millard RN 02/22/23 10:09:10 Finalized By: Roni Millard RN Document Signatures Signed By: Roni Millard RN 02/22/23 10:09[facility] Postoperative Recordon [id number] Postoperative RecordVETERANS HEALTH AD[facility]IST[facility] Phase II Record Summary Primary Physician: Gabe Haley MD Finalized Date/Time: 02/22/23 11:43:48 Pt. Name: KAMRON THOMPSON/Sex: 1970 MALE Med Rec #: [id number] Physician: Gabe Haley MD Financial #: [id number] Pt. Type: D Room/Bed: / Admit/Disch: 02/22/23 06:31:02 - Institution: Phase II Case Times MAGR Pre-Care Text: Patient is free from s/s of injury. Patient remains free from compromised physical state related tosurgery or anesthesia. Patient comfort maintained. Patient/family verbalize [...] Signatures Signed By: Christiano Ford RN 02/22/23 11:43[facility] CenterMAGR Preoperative Recordon [id number] Preoperative RecordMAGR Pre-Op Record Summary Primary Physician: Gabe Haley MD Finalized Date/Time: 02/22/23 08:55:46 Pt. Name: KAMRON THOMPSON /Sex: 1970 MALE Med Rec #: [id number] Physician: Gabe Haley MD Financial #: [id number] Pt. Type: D Room/Bed: / Admit/Disch: 02/22/23 [...] ready for surgery. The patient remains free froms/s of injury. Patient/family express understanding of plan of care and participate in decisions affectinghis or her perioperrative plan of care. Allergies documented appropriately. Patient identifiers and consent correct. General Comments: Pt arrives to w ambulatory. PT denies cp, sob, cough or flu like symptoms. Pt denies pacemaker/defibillator or sleep apnea. Finalized By: Radhika Arredondo RN Document Signatures Signed By: Radhika Arredondo RN 02/22/23 08:55[facility] CenterPatient Handouton 39-75-3342Tqltuel HandoutThe University of [facility]edo Medical CenterProgress Note - Nurseon 90-23-0944Xkrfavah Note - NursePre-op call done, instructed to arrive @ 0630 on 02-22-23, NPO after midnight, and need for ride toand from hospital-verbalized understanding. [Electronically Signed on: 02/21/2023 12:24 EST] Kezia Fuller RN [Verified on: 02/21/2023 12:24 EST] Kezia Fuller RNNoKettering Health Behavioral Medical Center Urineon 01-28-2023 UrineNo growth at 2 days.[facility] CenterComment on above:Performed By: #### [id number] ####[facility] (DEFAULT)[address] [place] [address] 63006Bbobyfvk Note - Nurseon 08-04-9526Bfjjkixa Note - NurseDr Campbell reviews pt chart and no new orders were received. [Electronically Signed on: 01/28/2023 09:31 EDT] Roni Millard RN [Verified on: 01/28/2023 09:31 EDT] Roni Millard RNNoCommunity Regional Medical CenterCoding Summaryon 14-57-8074Ubdpuh SummaryHTMLBase 64 UkcbsyejNHj1ySb+PGhlYWQ+TW3BGABiZ78thBVlvD6bW4ENCWxSObznGTZFECnNGyCdpuUlHT2qxEEr ZXJu [file] IGN (more content not included)...NormalLicking Memorial Hospital HospitalProvider Orderson 31-59-9353Fnvzprrr [id number]#1.00OTGTIFF [facility] CenterBM Standardon 47-40-2582zWHM Non AA>60Invalid Interpretation [facility] HospitalComment on above:Performed By: #### [id number], [id number] ####[facility] (DEFAULT)[address] [place] [address] 93162uBEP AA>60Invalid Interpretation [facility] HospitalComment on above:Performed By: #### [id number], [id number] ####[facility] (DEFAULT)[address] [place] [address] 55098Sbczgbl [Mass/Vol]9.3 mg/dL Normal8.9-10.3Mpremier health HospitalComment on above:Performed By: #### [id number], ####[facility] (DEFAULT)[address] [place] [address] 20273Lgeekrld [Moles/Vol]102 mmol/OFebumu069-899Yonzfran HospitalComment on above:Performed By: #### [id number], ####[facility] (DEFAULT)[address] [place] [address] 70278QP9 [Moles/Vol]26 mmol/LNormal 21-32[facility] HospitalComment on above:Performed By: #### [id number], ####[facility] (DEFAULT)[address] [place] [address] 44706 Creatinine [Mass/Vol]1.02 mg/dLNormal0.90-1.30[facility] HospitalComment on above: Performed By: #### [id number], ####[facility] (DEFAULT)[address] [place] [address] 65472Kavaozg [Mass/Vol]98.0 mg/aJKvpocm99.0-118.0 [facility] HospitalComment on above:Performed By: #### [id number], [id number] ####[facility] (DEFAULT)[address] [place] [address] 39306Xltovnrji [Moles/Vol]4.0 mmol/LNormal3.6-5.1Mpremier health HospitalComment on above:Performed By: #### [id number], [id number] ####[facility] (DEFAULT)[address] [place] [address] 64472Rdlmyk [Moles/Vol]138.0 mmol/LNgkivy471.0-144.0 [facility] HospitalComment on above:Performed By: #### [id number], [id number] ####[facility] (DEFAULT)[address] [place] [address] 62518Xgrx nitrogen [Mass/Vol]19 mg/dLNormal8-26[facility] HospitalComment on above:Performed By: #### [id number], ####[facility] (DEFAULT)[address] [place] [address] 59393Vlkie gap [Moles/Vol]14.0 mmol/LNormal5.0-19.0 [facility] CenterComment on above:Performed By: #### [id number], [id number] ####[facility] (DEFAULT)[address] [place] [address] 49889Fijwtyfikb 278 mOsm/LInvalid Interpretation [facility] HospitalComment on above:Performed By: #### [id number], ####[facility] (DEFAULT)[address] [place] [address] 89183Zoey nitrogen/Creatinine [Mass ratio]18.6 mg/mgHigh 4.6-16.2Mpremier health HospitalComment on above:Performed By: #### [id number], [id number] ####[facility] (DEFAULT)[address] [place] [address] 80674Obaam Joe 29-70-1570Enab CollectedYesInvalid Interpretation [facility] HospitalComment on above:Performed By: #### [id number], [id number] ####[facility] ([facility])[address] [place], [place] [address]CSF with Auto Differentialon 14-96-2472Bgpdbkadh (Bld) [#/Vol][facility] Basophils/100 WBC (Bld)0 %0 - 2 %[facility] HEALTHEosinophils (Bld) [#/Vol][facility] HEALTHEosinophils/100 WBC (Bld)0 %Low1 - 4 %[facility] HEALTHErythrocyte distribution width (RBC) [Ratio]11.7 %Low11.8 - 14.4 % [facility] HEALTHHematocrit (Bld) [Volume fraction]43.9 %40.7 - 50.3 %[facility]OSPITALHemoglobin (Bld) [Mass/Vol]14.9 g/dL13.0 - 17.0 g/dLBON SECOURS [facility]CY [facility] HOSPITALImmature granulocytes (Bld) [#/Vol]0.03 10*3/uLBON SECOURS MERCY HEALTHImmature granulocytes/100 WBC (Bld)0 %0[facility] Interpretation and review of laboratory resultsAbnormalB[facility] Lymphocytes/100 WBC (Bld)19 %Low24 - 43 %[facility] MERCY HOSPITALLymphocytes/100 WBC (Bld)1.86 %[facility] SECW[facility]IVEY [facility]ENTERH (RBC) [Entitic mass]30.8 pg25.2 - 33.5 pgBON SECOURS [facility]ITALY [facility] CENTERHC (RBC) [Mass/Vol]33.9 g/dL28.4 - 34.8 g/dLBON SECOURS [facility]OSPITALY [facility] MEDICAL CENTERV (RBC) [Entitic vol]90.9 fL82.6 - 102.9 fLBON SECOURS MERCY HEALTHMonocytes/100 WBC (Bld)7 %3 - 12 %[facility] Monocytes/100 WBC (Bld)0.63 %[facility] HOSPITALNeutrophils/100 WBC (Bld)74 %High36 - 65 %[facility] HOSPITALNucleated RBC/100 WBC (Bld) [Ratio]0.0 % 0.0 per 100 WBCBON SECOURS [facility]AST L[facility]PO[facility] HOSPITALY [facility] HOSPITALPlatelet mean volume (Bld) [Entitic vol] 9.2 fL8.1 - 13.5 fLBON HOLZER HEALTH SYSTEMPlatelets (Bld) [#/Vol]278 10*3/uLBON HOLZER HEALTH SYSTEMRBC (Bld) [#/Vol]4.83 10*6/uL4.21 - 5.77 m/uLBON HOLZER HEALTH SYSTEMSegmented neutrophils/100 WBC (Bld)7.13 %BON [facility]ALTH SYSTEMWBC other (Bld) [#/Vol]9.7BON [facility] SI[facility]X FALLSCBC with Diffon 50-66-5628Tvz. Basophil<0.77Wablcm8.00-0.20[facility] HospitalComment on above:Performed By: #### CMPX, CDP #### [place] [address] Refrigeration Systems Installer: Alonso Campbell. Eosinophil<0.23Tymysd0.00-0.44[facility] HospitalComment on above:Performed By: #### CMPX, CDP #### [place] [address] [employer]rigeration Systems Installer: MDAbs. AdrianImm.Granulocyte0.03 k/uLNormal0.00-0.30[facility] HospitalComment on above:Performed By: #### CMPX, CDP #### [place] [address] [employer] Installer: Alonso Campbell.Neutrophil (Seg)7.13 k/uLNormal1.50-8.10 [facility] HospitalComment on above:Performed By: #### CMPX, CDP #### [place] [address] [employer] Installer: Mauro Dunlap MDBasophils/100 WBC (Bld)0 %Normal0-2MercSanta Barbara Cottage HospitalComment on above:Performed By: #### CMPX, CDP #### [address] [address] [employer] Installer: Mauro Dunlap MDEosinophils/100 WBC (Bld)0 %Low1-4[facility] HospitalComment on above:Performed By: #### CMPX, CDP #### [address] [address] [employer] Installer: Mauro Dunlap MDErythrocyte distribution width (RBC) [Ratio]11.7 %Low11.8-14.4[facility] HospitalComment on above:Performed By: #### CMPX, CDP #### [address] [address] [employer] Installer: Mauro Dunlap MDHematocrit (Bld) [Volume fraction]43.9 %Normal 40.7-50.3[facility] Foundation HospitalComment on above:Performed By: #### CMPX, CDP #### [address] [address] [employer] Installer: Mauro Dunlap MDHemoglobin (Bld) [Mass/Vol]14.9 g/dLNormal 13.0-17.0[facility] HospitalComment on above:Performed By: #### CMPX, CDP #### [place] [address] [employer] Installer: Mauro Dunlap MDImmature granulocytes/100 WBC (Bld)0 %Normal0 [facility] HospitalComment on above:Performed By: #### CMPX, CDP #### [address] [address] [employer] Installer: Mauro Dunlap MDLymphocytes (Bld) [#/Vol]1.86 10*3/uLNormal 1.10-3.70[facility] HospitalComment on above:Performed By: #### CMPX, CDP #### [address] [address] [employer] Installer: Mauro Dunlap MDLymphocytes/100 WBC (Bld)19 %Isl71-35DorcwSelect Medical Ohiohealth Rehabilitation HospitalComment on above:Performed By: #### CMPX, CDP #### [address] [address] [employer] Installer: ZAK CampbellCH (RBC) [Entitic mass]30.8 olOofzjj64.2-33.5 [facility] HospitalComment on above:Performed By: #### CMPX, CDP #### [address] [address] [employer] Installer: ZAK CampbellCHC (RBC) [Mass/Vol]33.9 g/fREmytli92.4-34.8 [facility] HospitalComment on above:Performed By: #### CMPX, CDP #### [place] [address] [employer] Installer: ZAK CampbellCV (RBC) [Entitic vol]90.9 fJVbpijz14.6-102.9 [facility] HospitalComment on above:Performed By: #### CMPX, CDP #### [place] [address] [employer] Installer: Mauro Dunlap MDMonocytes (Bld) [#/Vol]0.63 10*3/uLNormal 0.10-1.20[facility] HospitalComment on above:Performed By: #### CMPX, CDP #### [address] [address] [employer] Installer: ZAK Campbellonocytes/100 WBC (Bld)7 %Normal3-12[facility] HospitalComment on above:Performed By: #### CMPX, CDP #### [facility] [address] [place] [address] [employer] Installer: Shar Campbell (Seg)74 %Ihnp15-90SwpgqSelect Medical Ohiohealth Rehabilitation HospitalComment on above:Performed By: #### CMPX, CDP #### [facility] [address] [place] [address] [employer] Installer: ALEKSEY Campbell Automated0.0 per 100 WBCNormal0.0[facility] HospitalComment on above:Performed By: #### CMPX, CDP #### [facility] [address] [place] [address] [employer] Installer: Ashley Campbell mean volume (Bld) [Entitic vol]9.2 fL Normal8.1-13.5[facility] HospitalComment on above:Performed By: #### CMPX, CDP #### [facility] [address] [place] [address] [employer] Installer: Floyd Campbellteeloy (Bld) [#/Vol]278 10*3/aFClbnic830-664 [facility] HospitalComment on above:Performed By: #### CMPX, CDP #### [address] [address] [employer] Installer: LYNN CampbellBC (Bld) [#/Vol]4.83 10*6/uLNormal4.21-5.77 [facility] HospitalComment on above:Performed By: #### CMPX, CDP #### [facility] [address] [place] [address] [employer] Installer: TIN Campbell (Bld) [#/Vol]9.7 10*3/uLNormal3.5-11.3MEl Camino HospitalComment on above:Performed By: #### CMPX, CDP #### [facility] [address] [place] [address] [employer] Installer: LEONEL Campbellomp Metabolic Pr/rfx MGon [id number] [Mass/Vol]4.4 g/dLNormal3.5-5.2Mtrinity [facility] medical centery Kaiser Foundation HospitalComment on above: Performed By: #### CMPX, CDP #### [facility] [address] [place] [address] [employer] Installer: Mauro Dunlap MDAlbumin/Glob Ratio1.6Vwpilw8.0-2.5[facility] HospitalComment on above:Performed By: #### CMPX, CDP #### [facility] [address] [place] [address] [employer] Installer: Mauro Dunlap MDAlkaline Phos56 U/ROndjov85-762DsapkSelect Medical Ohiohealth Rehabilitation HospitalComment on above:Performed By: #### CMPX, CDP #### [facility] [address] [place] [address] [employer] Installer: Mauro Dunlap MDALT [Catalytic activity/Vol]22 U/LNormal5-41 [facility] HospitalComment on above:Performed By: #### CMPX, CDP #### [facility] [address] [place] [address] [employer] Installer: Mauro Dunlap MDAnion gap [Moles/Vol]10 mmol/LNormal9-17[facility] HospitalComment on above:Performed By: #### CMPX, CDP #### [facility] [address] [place] [address] [employer] Installer: Mauro Dunlap MDAST [Catalytic activity/Vol]17 U/LNormal<40[facility] HospitalComment on above:Performed By: #### CMPX, CDP #### [facility] [address] [place] [address] [employer] Installer: Mauro Dunlap MDBilirubin [Mass/Vol]1.0 mg/dLNormal0.3-1.2Mtrinity [facility] medical centery [facility] Foundation HospitalComment on above:Performed By: #### CMPX, CDP #### [facility] [address] [place] [address] [employer] Installer: LEONEL Campbellalcium [Mass/Vol]9.1 mg/dLNormal8.6-10.4[facility] HospitalComment on above:Performed By: #### CMPX, CDP #### [facility] [address] [place] [address] [employer] Installer: LEONEL Campbellhloride [Moles/Vol]104 mmol/FDzkftc29-882ZeexrSelect Medical Ohiohealth Rehabilitation HospitalComment on above:Performed By: #### CMPX, CDP #### [facility] [address] [place] [address] [employer] Installer: Mauro Dunlap MDCO2 [Moles/Vol]26 mmol/ZWwwpch90-24XqlhtSelect Medical Ohiohealth Rehabilitation HospitalComment on above:Performed By: #### CMPX, CDP #### [facility] [address] [place] [address] [employer] Installer: LEONEL Campbellreatinine [Mass/Vol]1.0 mg/dLNormal0.7-1.2MEl Camino HospitalComment on above:Performed By: #### CMPX, CDP #### [facility] [address] [place] [address] [employer] Installer: Mauro Dunlap MDGFR/1.73 sq M.predicted among non-blacks MDRD (S/P/Bld) [Vol rate/Area]mL/min/{1.73_m2}Normal>60[facility] HospitalComment on above:Result Comment: These results are not intended for [...] or following therapy that affects renal tubular secretion.Performed By: #### CMPX, CDP #### [facility] [employer] [address] [place] [address] [employer] Installer: Mauro Dunlap MDGlucose [Mass/Vol]90 mg/pJSunrrq49-67InkrzEl Camino HospitalComment on above:Performed By: #### CMPX, CDP #### [address] [address] [employer] Installer: Mauro Dunlap MDPotassium [Moles/Vol]3.9 mmol/LNormal3.7-5.3 [facility] HospitalComment on above:Performed By: #### CMPX, CDP #### [address] [address] [employer] Installer: Mauro Dunlap MDProtein [Mass/Vol]7.1 g/dLNormal6.4-8.3MEl Camino HospitalComment on above:Performed By: #### CMPX, CDP #### [address] [address] [employer] Installer: Mauro Dunlap MDSodium [Moles/Vol]140 mmol/BZdhwpz352-090UbhszSelect Medical Ohiohealth Rehabilitation HospitalComment on above:Performed By: #### CMPX, CDP #### [address] [address] [employer] Installer: Mauro Dunlap MDUrea nitrogen [Mass/Vol]13 mg/dLNormal6-20[facility] HospitalComment on above:Performed By: #### CMPX, CDP #### [address] [address] [employer] Installer: LEONEL Campbellomprehensive Metabolic Panel w/ Reflex to MGon [id number] [Mass/Vol]4.4 g/dL3.5 - 5.2 g/dLB[facility] [employer] Albumin/Globulin [Mass ratio]1.6 {ratio}1.0 - 2.5BON SECWASHINGTON RURAL HEALTH COLLABORATIVEOnaroALP [Catalytic activity/Vol]56 U/L40 - 129 U/LBON SECWASHINGTON RURAL HEALTH COLLABORATIVEOnaroALT [Catalytic activity/Vol]22 U/L5 - 41 U/LBON SECWASHINGTON RURAL HEALTH COLLABORATIVEOnaroAnion gap [Moles/Vol]10 mmol/L9 - 17 mmol/LBON SECST. [facility] HEALTHAST [Catalytic activity/Vol]17 U/L NINF - 40 U/LBON [facility]HL[facility] [employer]ABilirubin [Mass/Vol]1.0 mg/dL0.3 - 1.2 mg/dLB[facility]HLAND [facility] [employer]ACalcium [Mass/Vol]9.1 mg/dL8.6 - 10.4 mg/dLB[facility] [employer].AChloride [Moles/Vol]104 mmol/L98 - 107 mmol/LBON [facility]HL[facility] [employer]ACO2 [Moles/Vol]26 mmol/L20 - 31 mmol/LBON [facility] [employer] Creatinine [Mass/Vol]1.0 mg/dL0.7 - 1.2 mg/dLB[facility] [employer]AGFR/1.73 sq M.predicted MDRD (S/P/Bld) [Vol rate/Area]- PINFBON HOLZER HEALTH SYSTEMComment on above: These results are not intended [...] therapy that affects renal tubular secretion. Glucose [Mass/Vol]90 mg/dL70 - 99 mg/dLBON COPPER QUEEN COMMUNITY HOSPITALOURS [employer]APotassium [Moles/Vol]3.9 mmol/L3.7 - 5.3 mmol/LBON [facility] [employer] HEALTHProtein [Mass/Vol] 7.1 g/dL6.4 - 8.3 g/dLBON KERN VALLEYOnaroSodium [Moles/Vol]140 mmol/L135 - 144 mmol/LBON HOLZER HEALTH SYSTEMUrea nitrogen [Mass/Vol]13 mg/dL6 - 20 mg/dL BON HOLZER HEALTH SYSTEMBON HOLZER HEALTH SYSTEMCBC AUTO DIFFon [id number] # 0.0 103/ulNormal0.0-0.1[facility]ermont HospitalComment on above:Performed By: #### CBC #### [facility] [address] [address] [address] Karin ChamorroBasophils/100 WBC (Bld)0.6 %Normal0.2-2.0The [facility] Comment on above:Performed By: #### CBC #### [facility] [address] [place] [address] Dr. Karin Guerra #0.5 103/ulNormal0.0-0.7The [facility] - TrumbullComment on above: Performed By: #### CBC #### [facility] [address] [place] [address] Dr. Karin Garzaosinophils/100 WBC (Bld)6.8 %Normal0.9-7.0The [facility] Comment on above:Performed By: #### CBC #### [facility] [address] [place] [address] Dr. Karin Garzarythrocyte distribution width (RBC) [Ratio]11.8 %Awzqul61.0-15.0 [facility] HospitalComment on above:Performed By: #### CBC #### [facility] [address] [place] [address] Dr. Karin ChamorroHematocrit (Bld) [Volume fraction]42.7 %Srnhch59.0-54.0The [facility] - TrumbullComment on above:Performed By: #### CBC #### [facility] [address] [place] [address] Dr. Karin ChamorroHemoglobin (Bld) [Mass/Vol]14.6 g/uYEjmtbc26.0-18.0The [facility] TrumbullComment on above:Performed By: #### CBC #### [facility] [address] [place] [address] Dr. Karin Barrera #0.01 10e3/ulNormal0.00-0.03The [facility] - TrumbullComment on above:Performed By: #### CBC #### [facility] [address] [place] [address] Dr. Karin Barrera %0.1 %Normal0.0-0.5The [facility] TrumbullComaspirus iron river hospital on above: Performed By: #### CBC #### [facility] [address] [place] [address] Dr. Karin NunezKervin #2.8 103/ulNormal1.2-3.8The [facility] - TrumbullComment on above:Performed By: #### CBC #### [facility] [address] [place] [address] Dr. Karin Contrerashocytes/100 WBC (Bld)39.8 %Jzrilc05.5-60.0The [facility] TrumbullComaspirus iron river hospital on above:Performed By: #### CBC #### [facility] [address] [place] [address] Dr. Karin WilderUAL DIFF REQNONormalThe [facility] - TrumbullComment on above: Performed By: #### CBC #### [facility] [address] [place] [address] Dr. Karin Blanton (RBC) [Entitic mass]30.7 uvUewadj05.9-34.0The [facility] on above:Performed By: #### CBC #### [facility] [address] [place] [address] Dr. Karin Blanton (RBC) [Mass/Vol]34.2 g/xSMdpxeh70.9-35.2The [facility] TrumbullComaspirus iron river hospital on above:Performed By: #### CBC #### [facility] [address] [place] [address] Dr. Karin Blanton (RBC) [Entitic vol]89.7 nHHvmucf03.0-94.0The [facility] - TrumbullComment on above:Performed By: #### CBC #### [facility] [address] [place] [address] Dr. Karin Hackett #0.5 103/ulNormal0.3-0.8The [facility] - TrumbullComment on above:Performed By: #### CBC #### [facility] [address] [place] [address] Dr. Karin Castanoocytes/100 WBC (Bld)7.4 %Normal1.7-12.0The [facility] Comment on above:Performed By: #### CBC #### [facility] [address] [place] [address] Dr. Karin HerbertUT #3.2 103/ulNormal1.4-6.5The [facility] - TrumbullComment on above:Performed By: #### CBC #### [facility] [address] [place] [address] Dr. Karin Herbertutrophils/100 WBC (Bld)45.3 %Qjuyue64.0-75.0The [facility] - TrumbullComment on above:Performed By: #### CBC #### [facility] [address] [place] [address] Dr. Karin Schafferlet mean volume (Bld) [Entitic vol]9.4 fLCritically low 9.5-13.5The [facility] TrumbullComment on above:Performed By: #### CBC #### [facility] [address] [place] [address] Dr. Karin ChamorroPLT306 103/oeXmrajw835-401Qtu [facility] TrumbullComment on above: Performed By: #### CBC #### [facility] [address] [place] [address] Dr. Karin ChamorroRBC4.76 106/ulNormal4.70-6.10The [facility] - TrumbullComment on above:Performed By: #### CBC #### [facility] [address] [place] [address] Dr. Karin ChamorroWBC7.0 103/ulNormal4.0-11.0The [facility] - TrumbullComment on above: Performed By: #### CBC #### [facility] [address] [place] [address] Dr. Karin HullID PROFILEon [id number]-HDL RATIO NORMSOhioHealth Grove City Methodist HospitalComment on above:Result Comment: 3.3 - 4.4 LOW RISK 4.4 - 7.1 AVERAGE RISK 7.1 - 11.0 MODERATE RISK >11.0 HIGH RISKPerformed By: #### LIPID, CMP #### [facility] [address] [place] [address] Dr. Karin ChamorroCholesterol [Mass/Vol]239 mg/dLCritically high<=200The [facility] on above:Performed By: #### LIPID, CMP #### [facility] [address] [place] [address] Dr. Karin Manjarrezesterol in HDL [Mass/Vol]50 mg/aBLhsxkr66-17PnsMercy Health Clermont HospitalComaspirus iron river hospital on above:Performed By: #### LIPID, CMP #### [facility] [address] [place] [address] Dr. Karin Manjarrezesterol in LDL [Mass/Vol]158.8 mg/dLOhio State University Wexner Medical CenterComaspirus iron river hospital on above:Performed By: #### LIPID, CMP #### [facility] [address] [place] [address] Dr. Karin Manjarrezesternay.total/Cholesterol in HDL [Mass ratio]4.8 {ratio} NormalMercy Health Clermont HospitalComaspirus iron river hospital on above:Performed By: #### LIPID, CMP #### [facility] [address] [place] [address] Dr. Karin Chiang NORMAL> or = 60 mg/dl - LOW CARDIOVASCULAR RISK <40 mg/dl - HIGH CARDIOVASCULAR RISKOhio State University Wexner Medical CenterComment on above:Performed By: #### LIPID, CMP #### [facility] [address] [place] [address] Dr. Karin ChamorroLDL CALC NORMALSEE St. Anthony's HospitalComment on above:Result Comment: <100 mg/dl OPTIMAL 100 - 129 mg/dl NEAR OR ABOVE OPTIMAL 130 - 159 mg/dl BORDERLINE HIGH 160 - 189 mg/dl HIGH >190 mg/dl VERY HIGH Performed By: #### LIPID, CMP #### [facility] [address] [address] [address] Karin ChamorroTriglyceride [Mass/Vol]151 mg/dLCritically high<=150The [facility] Health Systemment on above:Performed By: #### LIPID, CMP #### [facility] [address] [address] [address] Karin ChaomrroVLDL CALC30.2 mg/dLNormalThe [facility] TrumbullComment on above: Performed By: #### LIPID, CMP #### [facility] [address] [address] [address] Karin ChamorroPROF 14(COMP METB)on [id number] [Mass/Vol]3.8 g/dLNormal 3.4-5.0The [facility] Health Systemment on above:Performed By: #### LIPID, CMP #### [facility] [address] [place] [address] Dr. Karin ChamorroAlbumin/Globulin [Mass ratio]1.1 {ratio}NormalThe [facility] TrumbullComment on above:Performed By: #### LIPID, CMP #### [facility] [address] [place] [address] Dr. Karin Burkett [Catalytic activity/Vol]64 U/ZErfami40-382Iew [facility] on above:Performed By: #### LIPID, CMP #### [facility] [address] [place] [address] Dr. Karin Ayala [Catalytic activity/Vol]44 U/QVbyaqm35-11Abh [facility] Health Systemment on above:Performed By: #### LIPID, CMP #### [facility] [address] [place] [address] Dr. Karin Fabian gap [Moles/Vol]12.9 mmol/LNormalThe [facility] on above:Performed By: #### LIPID, CMP #### [facility] [address] [place] [address] Dr. Karin Corrales [Catalytic activity/Vol]21 U/SIbcihx52-70Ent [facility] HospitalComment on above:Performed By: #### LIPID, CMP #### [facility] [address] [address] [address] Karin ChamorroBilirubin [Mass/Vol]0.7 mg/dLNormal0.2-1.0[facility] Comment on above:Performed By: #### LIPID, CMP #### [facility] [address] [address] [address] Karin ChamorroCalcium [Mass/Vol]8.4 mg/dLCritically low8.5-10.1The [facility] on above:Performed By: #### LIPID, CMP #### [facility] [address] [place] [address] Dr. Karin ChamorroChloride [Moles/Vol]103 mmol/DDoydku76-718NnhMercy Health Clermont Hospital Comment on above:Performed By: #### LIPID, CMP #### [facility] [address] [place] [address] Dr. Karin ChamorroCO2 [Moles/Vol]27.9 mmol/DMljpla01.0-32.0[facility] Comment on above:Performed By: #### LIPID, CMP #### [facility] [address] [place] [address] Dr. Karin ChamorroCreatinine [Mass/Vol]1.01 mg/dLNormal0.70-1.30The [facility] on above:Performed By: #### LIPID, CMP #### [facility] [address] [place] [address] Dr. Karin GarzaGFR-AF AUSTRIAN>60Normal>=60[facility]erm[facility] HospitalComment on above:Performed By: #### LIPID, CMP #### [facility] [address] [place] [address] Dr. Karin GarzaGFR-NON AF AUSTRIAN>60Normal>=60The [facility] on above:Performed By: #### LIPID, CMP #### [facility] [address] [place] [address] Dr. Karin ChamorroGlobulin (S) [Mass/Vol]3.4 g/dLNormalThe Phong HospitalComment on above:Performed By: #### LIPID, CMP #### [facility] [address] [address] [address] Karin ChamorroGlucose [Mass/Vol]86 mg/sOTmemoa39-825RjoMercy Health Clermont Hospital Comment on above:Performed By: #### LIPID, CMP #### [facility] [address] [address] [address] Karin CahmorroPotassium [Moles/Vol]3.8 mmol/LNormal3.5-5.1The [facility] Comment on above:Performed By: #### LIPID, CMP #### [facility] [address] [address] [address] Karin ChamorroProtein [Mass/Vol]7.2 g/dLNormal6.4-8.2[facility] Comment on above:Performed By: #### LIPID, CMP #### [facility] [address] [place] [address] Dr. Karin ChamorroSodium [Moles/Vol]140 mmol/YVopxte813-602RwzMercy Health Clermont Hospital Comment on above:Performed By: #### LIPID, CMP #### [facility] [address] [place] [address] Dr. Karin ChamorroUrea nitrogen [Mass/Vol]13.0 mg/dLNormal7.0-18.0[facility]erm[facility] HospitalComment on above:Performed By: #### LIPID, CMP #### [facility] [address] [place] [address] Dr. Karin ChamorroUrea nitrogen/Creatinine [Mass ratio]12.9 mg/mgNoChillicothe HospitalComment on above:Performed By: #### LIPID, CMP #### [facility] [address] [place] [address] Dr. Karin ChamorroProviofe Letteron [id number] LetterAugust 2020November 13, 2020 KAMRON THOMPSON [address] [address] KAMRON THOMPSON 1970 Dear Kamron, We have been trying to reach you with no success. You have an appointment with Dr. Rangel on 11/20/2020 which will need to be rescheduled since he will be out of the office that day. Please contact theoffice at the number listed below to get this appointment rescheduled at your earliest convenience.Our phones are answered from 8:00 am to 12:00 pm and 12:30 pm to 4:30 pm Tuesday through Tuesday. Thank you for your prompt attention to this matter. Sincerely, [facility] [address], [place] [address] [address] John Medical CenterLo 07-22-2020 Specimen: [id number] Received: 07/24/20 Status: PRITI Fitzgerald Num: [id number] Spec Type: Surgical Subm Dr: Gabe Haley [...] Needle Biopsy ([facility]) Procedures: HE , Gross/Micro Patient Age/Sex Location Account Attending Physician Kamron Thompson /[facility] [id number] Gabe Haley MD SPEC NUM: [id number] RECD: 07/24/20 STATUS: PRITI FITZGERALD NUM: [id number] JENNIFER: 07/22/[address] [facility] [address]: Gabe Haley MD ENTERED: 07/24/[address] [facility] [address]: Juan Chávez SPEC TYPE: Surgical DEPT: MAG ELI ORDERED: [...] Benign prostate tissue showing mild chronic inflammation Specimen: [id number] Received: 07/24/20 Status: PRITI Fitzgerald Num: [id number] Spec Type: Surgical Subm Dr: Gabe Haley [...] ([facility]) Procedures: HE Stain, Gross/Micro /12 Patient: Kamron Thompson [id number] (Continued) Specimen: [id number] Received: 07/24/20-125 (Continued) Pathological Diagnosis (Continued) Signed (signature on file) Xi Noriega MD 07/25/20 1643 Specimen: [id number] Received: 07/24/20 Status: PRITI Fitzgerald Num: [id number] Spec Type: Surgical Subm Dr: Gabe Haley [...] ([facility]) Procedures: HE Stain/, Gross/Micro Patient: Kamron Thompson [id number] (Continued) Specimen: [id number] Received: 07/24/20 (Continued) Pathological Diagnosis (Continued) F. [...] mild chronic inflammation J. (more content not included)...[facility] for Release of Medical Recordson 87-01-5501Ckpb for Release of Medical Records [id number]#1.00CD:[address] [place], [place] [address]RAD - Pet Scan Reporton 61-30-4980MAD - Pet Scan Report [id number]#1.00CD:[address] [place], [place] [address]Pre-Certification Formon 13-30-0334Uhs-Certification Form [id number]#1.00CD:[address] [place], [place] [address]Ambulatory Clinical Summaryon 47-46-4413Irepvctrbo Clinical Summary {[id number]-37-95-45-9j-85-83-j1-54-5e-c5-25-02}CD:[id number] Hospitals Ahuja Medical CenterFormson 15-71-4500Sisyo [id number]#1.00CD:[address] [place], [place] [address]Patient Educationon 60-47-8431Tyshrmm EducationOncology Prostate Cancer The prostate is a walnut-sized [...] Are older than age 65. ? Are -Andor[place]. ? Are obese. ? Have a family [...] seeds, wires, or tubes that are implanted intothe prostate gland. Like external beam radiation, brachytherapy [...] Follow these instructions at home: ? Take ehoa-vlu-taqggsg and prescription medicines only as told by [...] notify your cancer specialis (more content not included)...[facility] 66-22-4056Kvefyjlze From: Mirlande Desai To: EU - Clinical; Mirlande Desai; Sent: 05/22/2020 09:29:37 EST Show up: 05/31/2020 09:29:00 EST Subject: bone scan Reminder/Recall patient having whole body bone scan done 05/29/20 @ [facility]. show DLS results and call pt patient has 6m appt scheduledNormalClermont County HospitalUrology Office/Clinic Noteon 88-64-3137Gdwnjdc Office/Clinic NoteChief Complaint disscuss bx This patient is a 49-year-old male with a history of a adenocarcinoma of the prostate identified following a transrectal ultrasound of the prostate with ultrasound-guided needle biopsy by Dr. Glaser in 2019. Patient had a Ra's 3+3 equal 6 adenocarcinoma. He is a stage T1c. His prebiopsy PSA value was 6.5 ng/mL. He has a MRI for review today and is here today to help determine what the neckstep for management might be. He is already chosen active surveillance and has been doing this for the last year. HPI Staff TRUS/BX done 05/22/[address] Glaser and was positive for Ra 6 (3+3). Pt is here to discussMRI results that was done 04/09/20. Pt is currently on ACTIVE SURVEILANCE with a [place] 6(3+3). Recent PSA was done 03/17/20 and [...] denies hematuria, denies discharge, denies urinary frequency, deniesurinary hesitancy, denies nocturia, denies incontinence, denies genital [...] the future to assess reviewed and manage hisprostate cancer. He is interested in active surveillance [...] for twice a day tamsulosin will be sentto the drugstore. Patient would like to consider and continue active surveillance and will agree tothis using PSAs on a every 6 month [...] he wants to continue active surveillance and heunderstands the risk associated with this. We will [...] prostate MRI done on 04/09/2020 shows 1.2cm rt.mid posterolateral peripheral zone PI-RADS 3 lesion. The MRI report was reviewed with the patient in detail today. I discussed with the patient al (more content not included)...[facility] Ahuja Medical CenterComment on above:Result Comment: Electronically Signed By: Juan Carlos Sethi MD, Sebastian Kimbrough\.br\Date and Time Signed: 05/22/2108:39 EST\.br\Electronically Co-Signed By: Shaniqua Blanco MA\.br\Date and Time Co-Signed: 05/22/20 09:19 EST\.br\Electronically Co-Signed By: Tyrel GIORDANO MD\.br\Date and Time Co- Signed: 05/23/20 10:59 ESTRAD - MRI Reporton 13-30-6585CFH - MRI Report [id number]#1.00CD:[address] [place], [place] [address]Pre-Authorization for Medical Treatmenton 60-52-0907Ssl-Authorization for Medical [id number]#1.00CD:[address] [place], [place] [address]Physician Orderon 77-15-0170Jmvrapxof Order [id number]#1.00CD:127[facility]huja Medical CenterAmbulatory Clinical Summaryon 55-72-1602Xnibjiraao Clinical Summary {8y-33-k9-22-67-80-1k-57-r1-j2-34-5h-60-5e-51-1d}CD:005907AwkrlmNopprlUniversity Hospitals Ahuja Medical CenterPhysician Orderon 32-95-8609Bbmhislhf Order [id number]#1.00CD:127NormalFisher Western Maryland Hospital CenterUrology Office/Clinic Noteon 35-53-0510Xbzuefm Office/Clinic NoteChief Complaint Pt. here to go over MRI [...] Novisble or palpable masses Eyes: EOMintactlooks at ct Chest: Lungs CTA, respirations non labored. Cardiovascular: [...] Urnls Dip Stick Auto w/o Microscopy POC 83628 2. Prostate cancer (C61: Malignant neoplasm of prostate) 3. Prostate mass (N42.89: Other specified disorders of prostate) I recommended a MRI fusion biopsy for this patient. I explained that his young age made me prefer gianluca agreessive approach to detect signifincant cancer, but that the side effects of prostate cancer are also greater impact at a young age. I spent 25 minutes with this patient over 50% of which wasspent counseling and coordinating care. R/B/A of repeat [...] Never (less than 100 (more content not included)...[facility]huja Medical CenterComment on above:Result Comment: Electronically Signed By: Alfredito GARCÍA, Román Lee\.br\Date and Time Signed: 04/23/2111:28 ESTPre-Certification Formon 77-15-6535Rmb-Certification Form [id number]#1.00CD:127NoUniversity Hospitals St. John Medical CenterAmbulatory Clinical Summaryon 33-96-8932Zujbldeery Clinical Summary {01-f8-04-58-di-43-73-96-g9-g8-43-2f-6d-f2-e3-88}CD:414765PzgbsfLhqbuaUniversity Hospitals St. John Medical CenterPatient Educationon 64-21-1411Recwzra EducationFamily Medicine Prostate Cancer The prostate is a male gland that is involved in the production of semen. It is located between thebladder and the rectum. The normal prostate gland is the size of a walnut and surrounds the tube that carries urine from the bladder (urethra ). Prostate cancer is the abnormal growth of cells in thegland. Next to skin cancer, prostatic cancer is the most common cancer in men. One out of 6 men will be diagnosed with this in their lifetime. Although the number with this disease is large, the majority ofmen diagnosed with prostate cancer do not from it. CAUSES Age is the biggest risk factor for this disease. Growing older increases the chances of developing prostate cancer. The second most common risk factor is genetics. That means if a man has a father orbrother with prostate cancer then he has twice the risk of developing prostate cancer. Estimations are that 5% to 10% of all prostate cancer cases are hereditary. SYMPTOMS Most older men suffer from an enlarged prostate gland (benign prostatic hypertrophy, BPH ). Becauseprostate cancer occurs in this population, the symptoms that a man has with prostate cancer are almost always due to the enlarged prostate gland and not directly caused by the cancer. With the excepti on of pain in the back, hips, or [...] samples are taken. This test is not usuallydone with any anesthesia. This test is not [...] score by the pathologist. This is a systemof grading prostate cancer tissue based on how it looks under a microscope. The score indicates howlikely it is that a tumor will spread. The pathologist looks for two patterns and gives a number toeach pattern. The first pattern represents the majority of the tumor. The second pattern representsthe pattern of the smaller amount of the tumor. When you look at the report, you will see a number such as [place] 3 + 4. These two patterns are added together to give a total score. In this example,the total Ra score is 7. This means that the tumor is mostly low-grade with some high-grade tumor. A low total Ra score means the cancer tissue looks more like normal prostate tissue and the tumor is less likely to spread. A high [place] score means the cancer tissue is very different from normal. This high score means the tumor is more likely to spread. STAGING If a diagnosis of cancer has been established by the biopsy, the next step is to stage the cancer. This means it is put in a category based on how far the cancer has s (more content not included)...[facility]ja Medical CenterPhysician Orderon 92-32-5215Pdhchlzry Order [id number]:127NormalClermont County HospitalUrology Office/Clinic Noteon 23-17-6095Ozzgybd Office/Clinic NoteChief Complaint 3 month with PSA HPI Staff 3 month with PSA. Pervious DX: prostates cancer, weak stream and BPH with LUTS. PSA 6.65 done 03/17/2020. TRUS/BX done 05/25/2019 and was positive for [place] score of 6(3+3) 1 core. Tamsulosin 0.4mg [...] benefits, details, and treatment alternatives have been dis cussed with the patient. These include minimal to severe bleeding, infection, blood in the semen, inability to urinate, and severe infection requiring hospitalization and IV antibiotics, among others. Full informed consent has been obtained. Will order Mac anesthesia. Will also schedule pt. for MRIof prostate to. The patient chooses to proceed with this study. Ordered: MRI Pelvis (Soft Tissue) w/ + w/o contrast Urology Procedure Order 2. BPH with urinary obstruction (N40.1: Benign prostatic hyperplasia with lower urinary tract symptoms) Pt. is taking Flomax 0.4mg qd. Pt. to continue med. as directed and to call when refills are needed. Ordered: Urnls Dip Stick Auto w/o Microscopy POC 89834 Urology Procedure Order 3. Nocturia (R35.1: Nocturia) [...] Dr. Glaser. Follow-up With When Contact Information Alfredito GARCÍA, Román Lee [address] [place] [address] [phone] Additional Instructions: Patient Education Prostate Cancer I, [...] prostate bx (05/22/2019), Shivam (more content not included)...[facility]ja Medical CenterComment on above:Result Comment: Electronically Signed By: Alfredito GARCÍA, Román Lee\.br\Date and Time Signed: 03/19/2011:11 EST\.br\Electronically Co-Signed By: Shaniqua Blanco MA\.br\Date and Time Co- Signed: 03/19/20 11:10 ESTLab Reportson 06-05-6337Ytn Reports [id number]#[id number]:127NoUniversity Hospitals St. John Medical CenterAmbulatory Clinical Summaryon 18-28-4449Pywflndudg Clinical Summary {83-3l-aw-b7-41-73-05-n7-sj-8g-b3-41-28-93-d2-4b}CD:071322GtysmiKmsjgpUniversity Hospitals Ahuja Medical CenterPatient Educationon 13-99-5399Eoxnwwf EducationFamily Medicine YOu have prostate cancer. It is [...] for urinary complaints. While this may improve yourIPSS (the survey you filled out) it would not treat the cancer. In fact the cancer effects in cancer patient's are unstudied but felt to likely be minimal. Because of your young age I recommended surveillance till fertility and perhaps even erectile function become less of a issue and the considering having the prostate removed with the aid of a DaVincirobot. Please continue your tamsulosin. Prostate Cancer The prostate is a male gland that is involved in the production of semen. It is located between thebladder and the rectum. The normal prostate gland is the size of a walnut and surrounds the tube that carries urine from the bladder (urethra ). Prostate cancer is the abnormal growth of cells in thegland. Next to skin cancer, prostatic cancer is the most common cancer in men. One out of 6 men will be diagnosed with this in their lifetime. Although the number with this disease is large, the majority ofmen diagnosed with prostate cancer do not from it. CAUSES Age is the biggest risk factor for this disease. Growing older increases the chances of developing prostate cancer. The second most common risk factor is genetics. That means if a man has a father orbrother with prostate cancer then he has twice the risk of developing prostate cancer. Estimations are that 5% to 10% of all prostate cancer cases are hereditary. SYMPTOMS Most older men suffer from an enlarged prostate gland (benign prostatic hypertrophy, BPH ). Becauseprostate cancer occurs in this population, the symptoms that a man has with prostate cancer are almost always due to the enlarged prostate gland and not directly caused by the cancer. With the excepti on of pain in the back, hips, or [...] samples are taken. This test is not usuallydone with any anesthesia. This test is not [...] is cancerous, the cancer is also a [place] score by the pathologist. This is a systemof grading prostate cancer tissue based on how it looks under a microscope. The score indicates howlikely (more content not included)...Cl[facility] County Hospitalcreenson 84-62-0305Xgyfrqb [id number]#[id number]:127NormalClermont County HospitalUrology Office/Clinic Noteon 19-44-5114Twlcxdi Office/Clinic NoteChief Complaint 6 month with PSA HPI Staff ACTIVE SURVEILENCE 6 month f/u with PSA. Pt had PSA done at [facility] on 09-07-19 and was at 6.3. Pt had a TRUS/BX 05/25/19and was positive for a [place] score of 6(3+3) 1 core. Tamsulosin 0.4mg [...] if heencounters any issues prior. Pt. acknowledges understandin g. F/u in 3mos. w/ PSA. 2. Weak urinary stream (R39.12: Poor urinary stream) Weak stream w/ straining to urinate. PVR today - 225mL. IPSS score today - 9, QOL - 1. Pt. to starttimed voids q2-3hr during waking hours whether the [...] declined a prostate cancer surgery but was ag reeable to a repeat PSA in March and discussion then about the role and timing of a MRI for his 53 cc prostate with 225 PVR. I explained the differing side effect profiles between prostate cancer surgery and BPH surgery, at this time I did not suspect that his constrictive flow was based on prostate cancer but admited thatthe peripheral zone is what is sampled in biopsies not the periurethra central or transition zone. About 20% of prostate cancers historically occur in these areas, predominantly the transition zone. It was for this reason that I favored the MRI. I was surprised based on his IPPS score of being only9 and perhaps even more so his QOL score of pleased. I explained it would be hard to improve on pleased. I explained that I would like him to keep a close eye on PSA. I explained the 30% progression to treatment rate or there abouts(20 to 40) in active surveillance coho (more content not included)...[facility] Medical CenterComment on above:Result Comment: Electronically Signed By: Alfredito GARCÍA, Román Lee\.br\Date and Time Signed: 12/26/2011:08 EDT\.br\Electronically Co-Signed By: Shaniqua Blanco MA\.br\Date and Time Co-Signed: 12/26/19 12:01 EDT Vital Signs Date TimeVital SignValuePerforming QzsblzmyxUfmsocqr23-06-8779 15:42-0400Body eugoov423.8 cmAdena [facility]ike [facility] Center04-16-2025 15:42-0400Body mass index (BMI) [Ratio]37 kg/z3VfenqhizsAdena Pike Medical Center04-16-2025 15:42-0400Body .19 kgAdena Pike Medical Center04-16-2025 15:42-0400Diastolic blood tzfsyypo69 mm[Hg][facility] 07-25-2024 15:42-0400Heart rate71 /[facility] 07-25-2024 15:42-0400Respiratory rate12 /[facility] 07-25-2024 15:42-0400Systolic blood fvyyztsz699 mm[Hg][facility]01-17-2024 15:30-0500Body hinjcb757.88 cmBenjamin Ball Other [employer] Other 01-17-2024 15:30-0500Body mass index (BMI) [Ratio] 36.83 kg/r5Tezegsht Ball Other noAvieon Other 01-17-2024 15:30-0500Body umxlbe259.2 kgBenjamin Ball Other [employer] Other 01-17-2024 15:30-0500Diastolic blood tcpiaufn51 mm[Hg] Catarino Ball Other [employer] Other 01-17-2024 15:30-0500Respiratory rate12 /minBenjamin Ball Other [employer] Other 01-17-2024 15:30-0500Systolic blood modbgtnf313 mm[Hg] Catarino Ball Other no[employer] Other 10-18-2023 15:30-0400Body vydxab427.88 cmBenjamin Ball Other [employer] Other 10-18-2023 15:30-0400Body mass index (BMI) [Ratio] 34.31 kg/l1Dzkllsku Ball Other [employer] Other 10-18-2023 15:30-0400Body .76 kgBenjamin Ball Other [employer] Other 10-18-2023 15:30-0400Diastolic blood ehgxazjf604 mm[Hg]Catarino Ball Other [employer] Other 10-18-2023 15:30-0400Respiratory rate12 /minBenjamin Ball Other no[employer] Other 10-18-2023 15:30-0400Systolic blood zbmbnfij990 mm[Hg] Catarino Ball Other [employer] Other 08-04-2023 09:45-6111PyN4% (BldA) [Mass fraction]98 % Chastity Orlop DO Work Phone: [employer]08-04-2023 09:44-0400Body ioszvy899.86 kgStnii Orlop DO Work Phone: bon [employer]08-04-2023 09:42-0400Body cyfqnbsaxfp62.71 [degF]Chastity Orlop DO Work Phone: bon [employer]08-04-2023 09:42-0400Diastolic blood tvfbqeur88 mm[Hg]Chastity Sparkslop DO Work Phone: [employer]08-04-2023 09:42-0400Heart rate70 /Chelsie Orlop DO Work Phone: [employer]08-04-2023 09:42-0400 Respiratory rate16 /minStanmatthew Orlop DO Work Phone: [employer]08-04-2023 09:42-0400Systolic blood ltfoqxem464 mm[Hg]Chastity Sparkslop DO Work Phone: [employer]04-19-2023 16:30-0400Body .88 cmBenjamin Ball Other [employer] Other 04-19-2023 16:30-0400Body mass index (BMI) [Ratio] 34.82 kg/o0Bbjdslrg Ball Other [employer] Other 04-19-2023 16:30-0400Body .48 kgBenjamin Ball Other [employer] Other 04-19-2023 16:30-0400Diastolic blood oijbzczr45 mm[Hg] Catarino Ball Other [employer] Other 04-19-2023 16:30-0400Respiratory rate12 /minBenjamin Ball Other [employer] Other 04-19-2023 16:30-0400Systolic blood djmxteru781 mm[Hg] Catarino Ball Other [employer] Other Encounters Encounter DateEncounter TypeCare ProviderFacilityStart: 07-25-2024 End: 96-72-2222yenqfpvnecKuowwgepvPike [facility] Hospital Work Phone: Start: 07-25-2024 End: 92-89-9684Tjmsazrgb for general adult medical examination without abnormal findingsUpper Valley Medical Centertart: 07-25-2024 End: 93-95-5697Cwhiarv encounter procedureCape Fear Valley [facility] Work Phone: Start: 12-42-4553Qkfbuyg encounter statusUpper Valley Medical Centertart: 05-20-2023 End: 15-84-9059iaqsqwwmteKuygbvuv Ball Other [employer] Other Start: 28-10-0316Rqzfelwjd encounterBenjaimie Condon Medical ClinicStart: 04-29-2023 End: 15-48-6547yziehvhtpdZsfrhozi Ball Other [employer] Other Start: 08-79-2346Gazutirxu encounterBenjaimie Condon Medical ClinicStart: 04-27-2023 End: 96-21-9671tphvaoqylqFzorppqw Ball Other [employer] Other Start: 05-37-2861Ephzjj outpatient visit 15 minutes Catarino Karolyn [facility] ClinicStart: 79-80-7211Oyyaqygyb encounterBenjaimie [facility]ondon Medical ClinicStart: 02-22-2023 End: 20-58-2898pevwkakfpoQtrcfor [employer] Other Start: 21-42-2780Utbrqrtlc for general adult medical examination without abnormal findingsCatarino [facility]ondon Medical ClinicStart: 31-36-1222Lcmsbbay preventive med est patient 40-64yrsBemilla [facility]ondon Medical ClinicStart: 01-26-2023 End: 04-28-3657axkoqqqajeZqmxdxp J [employer] Other Start: 11-12-2022 End: 14-70-1543Efxzqchdnz and management of inpatientSZENOBIA MENONercangel Baldwin Park Hospitaltart: 11-12-2022 End: 24-90-4950Avlylophi department patient visitBEMILLA CONDONLutheran Hospitaltart: 11-12-2022 End: 41-95-6820Ficszhkiqt and management of inpatientSzenobia Nair DO Work Phone: [facility] EDComment on above:Urinary retention (Primary Dx)Start: 10-05-2022 End: 92-33-1807uuzslhpemlSaohrlzu Ball Other [employer] Other Start: 28-52-1004Rkecmuawn encounterBendayogalen Condon [facility] ClinicStart: 07-28-2022 End: 12-74-0414cpwjdqtdrcLkgepdty Ball Other [employer] Other Start: 08-57-3228Yurhzi outpatient visit 15 minutes Catarino [facility] ClinicStart: 06-17-2022 End: 49-87-1865mrierwbqdpMU DOCTOR MISCFacility:C3Ezvky: 07-54-1965Ncegfjvja for general adult medical examination without abnormal findingsDR CATARINO CONDONMercy Health Anderson Hospitaltart: 01-23-2022 End: 52-32-1586cabibxwlteZG CATARINO BALLFacility:B5Scojg: 01-23-2022 End: 45-40-7196Ahwccjoyc for general adult medical examination without abnormal findingsDR CATARINO CONDONFacility:H0Nsxbs: 04-07-2020 End: 32-51-6178Hytccoo encounter procedureExternal ProviderUniversity Hospitals Health System Start: 36-20-7781Dxrmwfi OnlyExternal ProviderExternal-NonCCF Procedures DateProcedureProcedure DetailPerforming ClinicianStart: 69-56-0832Mkegi count complete auto&auto difrntl wbcMohammad I Mashaleh DO Work Phone: Start: 97-26-3444LJT screeningDR DOCTOR MISCComment on above:Performed By: #### PSAD #### [facility] [address] [place] [address] Dr. Karin ChamorroStart: 30-56-1989DCASFLNJ IMAGINGExternal Provider Plan of Treatment DateCare ActivityDetailAuthorStart: 06-19-8291Foemajedu vaccinationFlu vaccine (#1)[facility]ITALStart: 52-49-1135Qanaeiypy vaccinationINFLUENZA (#1) [facility] Hospitaltart: 68-72-2425GDVCMJQB SCREENDIABETES SCREENUniversity Hospitals Health System Start: 37-25-6432QFXCL SCREENLIPID SCREENSelect Medical TriHealth Rehabilitation Hospitaltart: 1989 DTaP/Tdap/Td vaccine (1 - Tdap)DTaP/Tdap/Td vaccine (1 - Tdap)[facility]Start: 57-47-8714Gshzk microalbumin profileDTAP,TDAP,TD (1 - Tdap) [facility] Hospitaltart: 12-92-9021IQKTQCSGW C SCREENINGHEPATITIS C SCREENING [facility] Hospitaltart: 78-86-9821WJO SCREENINGHIV SCREENINGUniversity Hospitals Health System Start: 31-11-2355VINBH-19 Vaccine (#1)COVID-19 Vaccine (#1)[facility] Centerprehensive metabolic 2000 panel - Serum or PlasmaAdena Pike Medical CenterOxygen therapy [Minimum Data Set]Initiate Oxygen Therapy Protocol Respiratory Care Routine As Needed until discontinued starting 11/12/2022ON [facility] SYSTEMComment on above:As Needed until discontinued starting 11/12/2022[place] [facility] Payers DatePayer CategoryPayerPolicy [id number] MMO SUPERMED PLUS [id number] 2017-Present [id number] [id number] 2.16.840.1.861711.3.57[id number] 2..840.1.958663.3.57[id number] 2..840.1.912927.3.579.[id number] 2..840.1.794342.3.579.[id number] 2..0.1.439741.3.579.[id number] 2..840.1.190944.3.579.2.72705-76-8454Citymyg65366776014969-07-5125Hlxogqs [id number] h6p62x97-616g-61l9-i3qo-25t15qqbhjtkTahzsva Regular Qgxcofeyl4139 s9kn6c44-9nii-1qek-lg3o-0cscu2ps7e9s Social History DateTypeDetailFacilityTobacco smoking status NHISUnknown if ever smokedSelect Medical TriHealth Rehabilitation Hospitaltart: 45-79-7874Vuf Assigned At BirthNot on fileSelect Medical TriHealth Rehabilitation Hospitalex Assigned At BirthSex Assigned At [facility] [employer] Other Tobacco smoking status NHISTobacco smoking consumption unknownBON HOLZER HEALTH SYSTEMStart: 32-40-5772Wougyvm intakeEx-drinker (finding)[facility]ITALStart: 79-39-4008Dnhsiod smoking status NHIS Never smoked tobacco (finding)[facility]2024 End: 06-62-9109FyjQagc (finding)[facility]art: 51-15-1248Lut Assigned At [facility] Clinical Notes 07-28-2022 to 05-20-2023 Note Date & ShivPeyaDtttjbhz29-60-5427 Evaluation note* Encounter Date Diagnosis Assessment Notes Treatment Notes Treatment Clinical Notes May, Primary hypertension (ICD-10 - I 10) [facility] Other 01-17-2024 Evaluation note* Encounter Date Diagnosis Assessment Notes Treatment Notes Treatment Clinical Notes Apr, Primary hypertension (ICD-10 - I 10) This patient is instructed to consume a healthy, low-fat, low-salt diet. They are also encouraged to continue exercise to achieve/maintain a normal BMI. Apr,Other obesity due to excess calories (ICD-10 - E66.09)This patient has been instructed on a low-fat, high-fiber diet. They are instructed to reduce calories, portion sizes and snacks. It is recommended that they exercise for 30 minutes, 3-5 times weekly. Discussed use of medication. He has tried Mounjaro in the past w/ benefit. He has a new coupon and is requesting a new Rx Apr,ody mass index [BMI] 34.0-34.9, adult (ICD-10 - Z68.34) [place] [employer] Other 11-24-2023 Note [id number]#1.00[facility]11-17-2023 [id number]#1.00[facility] 02-24-2023 [id number]#1.00[facility]11-15-2023 [id number]#1.00[facility]11-14-2023 [facility] SURGERY Clinical Discharge Summary PERSON INFORMATION Name KAMRON THOMPSON Age 52 Years 1970 Sex MALE Language Thai PCP Catarino Condon Marital Status Med Service Ambulatory Surgery Acct# Arrival 02/22/2023 06:31:02 Visit Reason SURGERY- CYSTO, GREENLIGHT Acuity LOS 039 21:47 Address: [address] [place] [address] Comment: PROVIDER INFORMATION VITALS INFORMATION Vital Sign [...] pain. Refills: 0. Medication List: New Medications [facility]/pharmacy #[id number], [address] [place] [address] [phone], [phone] cephalexin (cephalexin 500 mg oral capsule) 1 [...] 1 cap(s) Oral every day. New Medications [id number], [address] [place] [address] [phone], [phone] cephalexin (cephalexin 500 mg oral capsule) 1 [...] 1 cap(s) Oral every day. New Medications [id number], [address] [place] [address] [phone], [phone] cephalexin (cephalexin 500 mg oral capsule) 1 [...] Restrictions: DISCHARGE INFORMATION Discharge Disposition: Discharge Location: [facility] REASON INCOMPLETE INFORMATION PATIENT EDUCATION INFORMATION Instructions: Follow up: With: Address: When: Gabe Haley MD With: Address: When: Gabe Haley MD DIAGNOSIS 1:BPH (benign prostatic hyperplasia) Comment: PHYS DOC [facility]10-18-2023 Evaluation note* Encounter Date Diagnosis Assessment Notes Treatment Notes Treatment Clinical Notes Jan, Wellness examination (ICD-10 - Z 00.00) Healthy diet and exercise. Reviewed age-appropriate preventive testing recommended. Jan,rimary hypertension (ICD-10 - I10) Jan,Other obesity due to excess calories (ICD-10 - E66.09)This patient has been instructed on a low-fat, high-fiber diet. They are instructed to reduce calories, portion sizes and snacks. It is recommended that they exercise for 30 minutes, 3-5 times weekly. Jan,ody mass index [BMI] 34.0-34.9, adult (ICD-10 - Z68.34) Jan,enign prostatic hyperplasia with lower urinary tract symptoms (ICD- 10 - N40.1)Scheduled for Laser treatment for BPH symptoms Jan,Hesitancy of micturition (ICD-10 - R39.11)BPH may be contributing. Did not improve w/ Flomax and course of antibiotics. Refer to urology for further evaluation. May,Malignant neoplasm of prostate (ICD-10 - C61)Active surveillance Serial PSA /w [facility] Other 08-04-2023 Hospital Discharge instructions* Discharge Instructions* [...] sent through Care Everywhere. * Urinary Retention (Thai) documented in this encounterB[facility]ER [facility] SYSTEM08-04-2023 Hospital course Narrative* Mustapha Augustine DO - 11/12/2022 12:29 PM EDT Images from the original note were not included. [facility] Office: [phone] Javad Walker DO, Narayan Perez DO, Chastity Nair DO, Jameson Orourke DO, Melchor Jackson [...] Sera Perez MD, Quinn Rg MD, Lidya Womack CNP, Regina Mendoza CNP, Mirlande Rodriguez CNP, Román Carrasco CNP, Camila Flores DNP, Flor Pinzon CNP, Ariadna Montilla CNP, Melaina Coffey, ROCHELLE, Debi Partida, EDUCATIONAL INSTITUTION CURATOR, Mercedes Flores, ROCHELLE, Dom Elias PA-C, Sondra Alvarado, ERNST, Magda Garcia CNP, Clarice Rubio CNP [facility] IN-PATIENT SERVICE [facility] Discharge Summary Patient ID: Kamron Thompson : 1970 ACCOUNT: [id number] Patient's PCP: Catarino Condon DO Admit Date: [...] to the hospital as a transfer from [place] for inability to urinate and clot retention. [...] Physician Follow Up: Catarino Condon DO [address] [facility] [address] Schedule an appointment as soon as possible for a visit in 1 week(s) Gabe Haley MD [address] [facility] [address] Follow up Requiring Further Evaluation/Follow Up POST [...] Your Medications These medications were sent to [place], [place] - [facility] - P [phone] - F [phone] [facility] [address] Hyoscyamine Sulfate SL 0.125 MG Subl sulfamethoxazole-trimethoprim [...] this patient's care. documented in this encounterBON HOL[facility]ER [facility] SYSTEM06-27-2023 Evaluation note* Encounter Date Diagnosis Assessment Notes Treatment Notes Treatment Clinical Notes Sep, Obesity (BMI 30-39.9) (ICD-10 - E66.9) [facility] Other 04-19-2023 Evaluation note* Encounter Date Diagnosis Assessment Notes Treatment Notes Treatment Clinical Notes Jul, Obesity (BMI 30-39.9) (ICD-10 - E66.9) This patient has been instructed on a low-fat, high-fiber diet. They are instructed to reduce calories, portion sizes and snacks. It is recommended that they exercise for 30 minutes, 3-5 times weekly. Jul,enign prostatic hyperplasia with lower urinary tract symptoms (ICD- 10 - N40.1)Continue Flomax d/c Finasteride w/o change in habits Jul,rostate cancer (ICD-10 - C61)Continue active surveillance. f/u Urology s/p TRUS/Bx x 2 s/p MRI w/ questionable area Most recent PSA 1.7 (finasteride) Jul,Nocturia (ICD-10 - R35.1)Continue Flomax, symptoms tolerable [facility] Other Evaluation note* Diagnosis Urine retention- Primary Retention of urine, unspecified Urinary retention Retention of urine, unspecified Urinary retention Retention of urine, unspecified documented in this encounter [facility]ITALEvaluation noteNo InformationNort [employer] Other Evaluation note* Diagnosis Onset Date Resolution Status Admit Date Benign prostatic hyperplasia with lower urinary tract symptoms acuteApril 2024 3:27pmObesityacuteApril 2024 3:27pmProstate cancer acuteApril 2024 3:27pmWellness examinationacuteApril 2024 3:27pm [facility] Work Phone: History general Narrative - Reported* Type Description Date Medical History Prostate cancer Medical HistoryGanglion of right wristMedical HistoryAsymptomatic varicose veins of both lower extremitiesMedical HistoryUrinary hesitancySurgical History TRUS/Bx sayvltot4253Jegzbgdr XihkkkhGLGPUZPORHO8512Zzfmzlvfycxkwku HistorySEE SURGICAL [facility] Other History general Narrative - Reported* Type Description Date Medical History Prostate cancer Medical HistoryGanglion of right wristMedical HistoryAsymptomatic varicose veins of both lower extremitiesMedical HistoryUrinary hesitancySurgical History TRUS/Bx ujswwnqp0969Njtxlkdn ZpurikuSJNAFSTEKQL1682Einhziwn HistoryCystoscopy, Green light lubuany42/2023Hospitalization HistorySEE SURGICAL [facility] Other Summary Purpose Family History Relationship Condition Age at Onset Recorded Date/T rosie father Heart disease Unknown Advance Directives Code StatusDate ActivatedDate InactivatedCommentsFull Code11/12/2022 9:54 AM Advance Directive Response Recorded Date/ Time Advance Directives No July 25, 2 025 1:20pm Chief Complaint and Reason for Visit Chief Complaint Admit Date Wellness July 25, 2024 3:2 7pm Reason for Visit Admit Date Benign prostatic hyperplasia with lower urinary tract symptoms July 25, 2024 3:27pm Obesity July 25, 2024 3:2 7pm Prostate cancer July 25, 2024 3:2 7pm Wellness examination July 25, 2024 3: 27pm Additional Source Comments Source Comments (unrecognize d section and content) In the event this informatio n is protected by the Federal Confidentiality of Alcohol and Drug Abuse Patient Records regulations: The Federal rules restrict any use of the information to criminally investigate or prosecute any alcohol or drug abuse patient.[facility] (unrecognized sect ion and content) No Status Records FoundNo Status Records FoundNo Status Records FoundNo Status Records FoundNo Status Records Found INFORMATION SOURCE (unrecogn ized section and content) DATE CREATED AUTHOR 11/14/2020 [facility] DATE CREATED AUTHOR AUTHOR'S ORGANIZ ATION 04/26/2021 [facility] DATE CREATED AUTHOR AUTHOR'S ORGANIZ ATION 06/23/2022 [facility] DATE CREATED AUTHOR AUTHOR'S ORGANIZ ATION 11/18/2022 [facility] DATE CREATED AUTHOR AUTHOR'S ORGANIZ ATION 03/04/2023 [facility] REASON FOR VISIT (unrecogniz ed section and content) ReasonCommentsUrinary RetentionDirect admit Ordered Prescriptions (unrec ognized section and content) PrescriptionSigDispensedRefillsStart DateEnd Date Hyoscyamine Sulfate SL (LEVSIN/SL) 0.[address] 0.125 mg under the tongue every 6 hours as needed (bladder spasms) STOP TAKING DAY BEFORE CATHETER REMOVAL 12 each /10/2022 sulfamethoxazole-trimethoprim (BACTRIM DS;SEPTRA DS) 800-160 MG per tablet Take 1 tablet by mouth 2 times daily for 7 days 14 tablet 008/04/332098/02/2023 tamsulosin (FLOMAX) 0.4 MG capsule Take 1 capsule by mouth daily 30 capsule Scheduled Active and Recently Administ ered Medications (unrecognized section and content) Medication Order// enoxaparin (LOVENOX) injection 40 mg 40 mg, SubCUTAneous, DAILY, First dose on Tue11/12/22 at 1000, Until Discontinued, Indication of Use: Prophylaxis-DVT/PE * 1000 (Due) sodium chloride flush 0.9 % injection 5-40 mL 5-40 mL, IntraVENous, EVERY 12 HOURS SCHEDULED (2 times per day), First dose on Tue11/12/22 at 1000,Until Discontinued, For Line Patency: Peripheral IV = [...] Midline or Central Line = 20 mL/lumen * 1000 (Due) * 2100 (Due) Medication Order/ 0.9 % sodium chloride infusion IntraVENous, at 75 mL/hr, CONTINUOUS, Starting on Tue11/12/22 at 1000 * 1000 (Due) Medication Order// 0.9 % sodium chloride infusion IntraVENous, at 5-250 mL/hr, PRN, if patient receiving piggyback infusions and maintenance fluids are not ordered OR KVO fluids to protect IV site / prevent frequent line interruptions/ long duration, Starting on Tue11/12/22 at 0954, For piggyback infusion, administer at same rate as piggyback for atotal of 25 mL. Enter 25 mL into [...] result from first line PRN therapy, give secondline therapy in combination with first line therapy. [...] Tue11/12/22 at 0954, Until Discontinued, Constipation, First linetherapy for constipation potassium bicarb-citric acid (EFFER-K) effervescent [...] as the IV push. Flush volume is determinedby type of infusion therapy being given. For non-viscous solutions use: Peripheral IV = 5 mL Midline or Central Line = 10 mL/lumen For viscous solutions (i.e. blood components, parenteral nutrition, contrast media, or after obtaining blood sample) use: Peripheral IV = 10 mL Midline or Central Line = 20 mL/lumen Order Group 1: acetaminophen (TYLENOL) tablet 650 [...] patient unable to tolerate tablet. K Lab &am p;nbsp; Replacement Action 3.1 to 3.5 40 mEq ORAL x 1 Under 3.1 Refer to IV replacement protoc ol Recheck K level in AM. Protocol not for use in patients with CrCl less than 30 mL/min.
Or potassium bicarb-citric acid (EFFER-K) effervescent tablet 40 mEqJump to med 40 mEq, Oral, PRN, Starting on Tue11/12/22 at 0954, Until Discontinued, Per Potassium Replacement Protocol
Administer as alternative if patient unable to tolerate oral tablet. K Lab &a mp;nbsp; Replacement Action 3.1 to 3.5 &amp ;nbsp; 40 mEq ORAL x 1 Under 3.1 &nbsp ; Refer to IV replacement protocol Recheck K level in AM.& nbsp;Protocol not for use in patients with CrCl [...] Under 2.7 CALL PROVIDER and administer 10 mEqIVPB x 6 doses (60 mEq Total) Infuse at 10 mEq/hr. Repeat Potassium lab1 hour after final administration. Protocol not for use in patients with CrCl less than 30mL/min.
Care Teams (unrecognized sec tion and content) Team Status: Active Member Role Status Dates Catarino Condon DO Primary Care Provider Active Team Status: Inactive Member Role Status Dates Catarino Condon DO Primary Care Provide r, Attending Provider Active Start: July 25, 2024 End: July 25, 2024Team MemberRelationshipSpecialtyStart DateEnd Date Catarino Condon DO [address] [place] [address] PCP - GeneralInternal Medicine11/12/22 Team Status: Active Member Role Status Samantha Condon DO Primary Care Provider Active Team Status: Active Member Role Status Samantha Condon DO Primary Care Provide r, Attending Provider Active Start: July 25, 2024 Team Status: Inactive Member Role Status Dates Catarino Condon DO Primary Care Provide r, Attending Provider Active Start: July 25, 2024 End: July 25, 2024 Goals (unrecognized section and content) Goals may be documented in a n alternate section FOR RECORDS PERTAINING TO PATIENTS WHO ARE [...] BE BASED ON THE PRIMARY CLINICAL RECORDS. [facility] [employer] [facility]. provides no warranty or guarantee of the accuracy or completeness of information in this document.
--- OUTSIDE RECORDS SUMMARY | 2025-02-16 08:12 | XMS_ITS | Patient Health Record ---
Author Organization [facility] [place] in [place] Address [address] [place] [address] Care Team Providers Care Hybrid Derivatives Trader Name Role Phone Catarino French DO Primary Care Provider Unavaila ble Allergies No Known Allergies Reason For Referral No Information Medications Medication SIG (Take, Route, Frequency, Duration) Notes Start Date End Date Status Tamsulosin HCl 0.4 MG 1 capsule Orally Once a da y; Duration: 90 days 11/09/2021Not-Taking Social History Tobacco Use: Social History Observation Description Date Details (start date - stop date) Never Smoker NA - NA Tobacco Use/Smoking Question Answer Notes Patient is a nonsmoker Alcohol Screen (Audit-C) Question Answer Notes Did you have a drink containing alcohol in the p ast year? Yes How often did you have a drink containing alcohol in the past year?Weekly (3 points)Gepgto7OmcvydaecuhfsaAapxchuxLDKGE-F (Standard) Question Answer Notes Did you have a drink containing alcohol in the p ast year? Yes How often did you have six or more drinks on one occasion in the past year?Never (0 point)How many drinks did you have on a typical day when you were drinking in the past year?1 or 2 drinks (0 point)How often did you have a drink containing alcohol in the past year?2 to 3 times a week (3 points)Yfhkbm9Mqusvfbadvfqwn Negative Problems Problem Type SNOMED Code ICD Code Onset Dates Problem Status W/U Status Risk Notes Problem Malignant neoplasm o f prostate (006388294) Malignant neoplasm of prostate (C61) ActiveconfirmedProblemContracture of joint of right ankle (disorder) (705119901593303)Contracture, 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)ActiveconfirmedProblem Contracture of joint of left ankle (disorder) (245019177735191)Contracture, left ankle (M24.572)ActiveconfirmedProblemHistory of malignant neoplasm of prostate (884647975)Personal history of malignant neoplasm of prostate (Z85.46)Active confirmedProblemBenign prostatic hypertrophy with outflow obstruction (375591845)BPH loc w urin obs/LUTS (N40.1)Activeconfirmed Plan Of Treatment Future Test Test Name Order Date PSA, TOTAL 10/17/2024 Insurance Providers Payer Name Payer Address Payer Phone Subscriber Number Group Number Insured Name Patient Relationship to Insured Coverage Start Date Coverage End Date O [address] [place], [place] [id number] Blayne Thompson Self - patient is the insured [address] [facility] [facility] [address] ENGLE B [address] [place] [id number] [phone], EricSelf - patient is the insured Medical (General) History Medical History History ICD Code prostate cancer BPH loc w urin obs/LUTSN40.1HypertensionSurgical History Surgery Date(Month/Year) prostate biopsy 07/22/20 hernia surgery Greenlight laser surgery xdtdacdg45/14/23Hospitalization History Reason Date(Month/Year) See above
--- OUTSIDE RECORDS SUMMARY | 2025-02-16 08:12 | XMS_ITS | Clinical Summary ---
Author Organization [facility] Address [address] [place] [address] Care Team Providers Care Personal Trainer Name Role Phone Unavailable Primary Care Provider Unavailabl e Allergies No known active allergies Social History Tobacco UseTypesPacks/DayYears UsedDateSmoking Tobacco: Never AssessedArea Deprivation IndexAnswerDate RecordedNational Score (1-100), lower number is lower riskNot on file04/09/2020State Score (1-10), lower number is lower riskNot on file04/09/2020Data from: https://www.neighborhoodatlas.[facility].edu/. Last address used for calculationNot on file04/09/2020Sex and Gender Information ValueDate RecordedSex Assigned at BirthNot on fileLegal AvhXkfr69/02/2016 11:52 AM ESTGender IdentityNot on fileSexual OrientationNot on file Plan of Treatment Health MaintenanceDue DateLast DoneCommentsAnxiety Elofrtgkq60/28/1989Depression Ptovevkib90/28/1989HIV Fefqgcdoz81/28/1989Hepatitis C Ndhhzjuqa89/28/1989 DTaP,Tdap,Td Vaccine (1 - Tdap)1989Hepatitis B Vaccine (1 of 3 - 19+ 3- dose series)1989Lipid Bbcvoqidu99/28/2006CT Vbmybniexxgi42/28/2016 Cologuard (FIT-DNA)06/08/20157541Xzhedkatrfi88/28/2016Colorectal Cancer Screening 2015Diabetes Mbkpcdexs15/28/2016Fecal Occult Blood2015Sigmoidoscopy 2015Pneumococcal Vaccine: 50+ (1 of 1 - PCV)2020hingrix Vaccine (1 of 2)1Covid-19 Vaccine (1 - 2025-26 season)2024Influenza Vaccine (#1)2024 Insurance [address] [place] [address]
[2025-02-16 09:10] LABS: Prostate Specific Antigen Dx 3.76 ng/mL (<=4.00)
== END 2025-02-16 08:08 | disposition home or self-care (01) ==
PROVIDERS: PCP Internal Medicine; Visit Provider Urology
DX: Z85.46 Personal history of malignant neoplasm of prostate (principal)
CPT/HCPCS: 36415; 84153